=== PATIENT | male | born 1930 | race Caucasian/White ===

== ENCOUNTER → 2016-03-15 | Outpatient (CLI) | payer BC ==
[~2016-03-15] MED LIST: ACET-1311 PO; ALBU18002 INH; ALBU1AER9 INH; ASCAUNK PO; ASCO500T16 PO; ASPCH81X PO; ASPI81TA28 PO; BENZ100C84 PO; CALC625T13 PO; CETI10TA84 PO; CETITAB27 PO; CLON0.5T3 PO; DIPH-437 PO; DUTACAP PO; FURO-85 PO; GABA-112 PO; GABA1CAP4 PO; GABA1CAP5 PO; GINK60CA2 PO; GLCSC750600 PO; GLUC500C60 PO; IPRA0.037; IPRA0.06 NAE; LOSA50TA6 PO; LOVA20TA4 PO; OMEP20CA59 PO; OXYC-57 PO; SYMIN160 INH; TIOT1SPR INH; ULT50 PO; VNTHFA/IN INH; XRL10 PO; XRL20 PO; ZNTT/150 PO; [UNRECOGNIZED DRUG - OTHER] PEG
--- NOTE | 2016-03-15 10:47 | DIAGNOSTIC IMAGING REPORT ---
MRI OF THE LUMBAR SPINE WITHOUT CONTRAST CLINICAL HISTORY: Low back pain with left-sided radiculopathy. COMPARISON STUDY: Lumbar spine MRI January 28, 2015 and lumbar spine radiographs March 15, [address] December 08, 2014. TECHNIQUE: Utilizing a 1.5 Ainsley magnet and dedicated coil, multiplanar, multiecho imaging of the lumbar spine was performed without IV contrast. FINDINGS: For purposes of numbering on this exam, the L5-S1 disc space is assigned to axial image 23 of 25. There is slight anterolisthesis of L4 and L5 which is unchanged. No intracanalicular mass or fluid collection is present. The conus terminates at the mid L1 level. Paravertebral soft tissues are unremarkable. L1-2: There is disc space narrowing with mild disc bulge. The central canal and neural foramen are patent. L2-3: There is disc space narrowing with minimal disc bulge. There is facet arthrosis. The central canal and neural foramen are patent. L3-4: There is disc space narrowing with minimal disc bulge. There is moderate facet arthrosis with ligamentous hypertrophy. The central canal is patent. There is mild narrowing of the right neural foramen and moderate narrowing of the left neural foramen which is similar to prior exam. L4-5: There is grade I anterolisthesis. Minimal disc bulge is present. There is marked ligamentous hypertrophy. Moderate facet arthrosis is present. There is mild narrowing of the central canal and lateral recesses with moderate narrowing of both neural foramen. L5-S1: There is disc space narrowing with disc bulge and facet arthrosis. The central canal is patent. There is moderate right and severe left neural foraminal stenosis which is similar to prior exam. IMPRESSION: 1. No significant change in appearance of the lumbar spine since exam of January 28, 2015. 2. Mild central canal stenosis at L4-L5, as detailed above. 3. Moderate to severe multilevel neural foraminal stenosis, most pronounced at the left L5-S1 foramen, as detailed above. Electronically signed by: Sriram Cates M.D. 03/15/2016 10:46 AM Dictated Date/Time: 03/15/2016 10:39 AM
== END | disposition home or self-care (01) ==
LOC: C.MRI 09:09
PROVIDERS: ATTEND Orthopaedic Surgery
DX: M54.16 Radiculopathy, lumbar region (principal); M48.06 Spinal stenosis, lumbar region

== ENCOUNTER → 2016-05-15 | Outpatient (CLI) | payer BC ==
[~2016-05-15] MED LIST changes: -[UNRECOGNIZED DRUG - OTHER] PEG; +[UNRECOGNIZED DRUG - OTHER] TOP
--- NOTE | 2016-05-15 18:22 | DIAGNOSTIC IMAGING REPORT ---
LUMBAR SPINE 5 VIEWS HISTORY: Pain. Trauma. TRAUMA COMPARISON: None. FINDINGS: There is no fracture. No subluxation. Moderate degenerative disc changes throughout. Mild osteopenia. IMPRESSION: Moderate degenerative change. Mild osteopenia. No acute bony abnormality. Electronically signed by: Duc Fleming M.D. 05/15/2016 6:20 PM Dictated Date/Time: 05/15/2016 6:19 PM
--- NOTE | 2016-05-15 18:23 | DIAGNOSTIC IMAGING REPORT ---
PELVIS/BILATERAL HIP 2 VIEWS CLINICAL HISTORY: TRAUMA pain COMPARISON STUDY: None FINDINGS: Moderate degenerative change at both hip joint spaces. No evidence for acetabular protrusion. No evidence for fracture or dislocation. IMPRESSION: Moderate degenerative change. No acute process. Electronically signed by: Duc Fleming M.D. 05/15/2016 6:21 PM Dictated Date/Time: 05/15/2016 6:20 PM
== END | disposition home or self-care (01) ==
LOC: C.RAD 17:40
PROVIDERS: ATTEND Internal Medicine
DX: T14.90 Injury, unspecified (principal); X58.XXXA Exposure to other specified factors, initial encounter

== ENCOUNTER → 2016-05-30 | Outpatient (CLI) | payer BC ==
[2016-05-30 14:57] LABS: ESTIMATED AVERAGE GLUCOSE 117 mg/dl; HA1C FLAG Normal (Normal)
[2016-05-30 15:35] LABS: BLOOD UREA NITROGEN 21 mg/dl (7-18); BUN/CREATININE RATIO 18.7 (10-20); CALCIUM 8.9 mg/dl (8.5-10.1); CARBON DIOXIDE 27 mmol/L (21-32); CHLORIDE 106 mmol/L (98-107); GLUCOSE 118 mg/dl (70-99); POTASSIUM 4.3 mmol/L (3.5-5.1); SODIUM 140 mmol/L (136-145)
== END | disposition home or self-care (01) ==
LOC: C.LAB1850 13:53
PROVIDERS: ATTEND Internal Medicine
DX: Z86.39 Personal history of other endocrine, nutritional and metabolic disease (principal)

== ENCOUNTER 2016-08-26 08:40 | Inpatient (IN) | payer BC, OTHER ==
[~2016-08-26] VITALS: Ht 172.7 cm; Wt 74.2 kg
[~2016-08-26 08:40] MED LIST changes: -ACET-1311 PO; -ALBU18002 INH; -ASCO500T16 PO; -ASPI81TA28 PO; -CALC625T13 PO; -CETI10TA84 PO; -GABA-112 PO; -GABA1CAP4 PO; -GABA1CAP5 PO; -GLUC500C60 PO; -IPRA0.06 NAE; -SYMIN160 INH; -ULT50 PO; -VNTHFA/IN INH; -XRL10 PO; -[UNRECOGNIZED DRUG - OTHER] TOP
[2016-08-26] MEDS: SODIUM CHLORIDE 0.9% 1000ML 1,000 ML IV SCH ×2 (09:19→14:15)
[2016-08-26 09:34] LABS: BASO % 0.3 %; BASO ABS # 0.03 K/uL (0-0.2); BUN/CREATININE RATIO 19.9 (10-20); COMPLETE YES; CREATININE 1.1 mg/dl (0.60-1.40); EOS % 4.1 %; HEMATOCRIT 35.1 % (42-52); IG% 0.7 %; LYMPH % 10.3 %; LYMPH ABS # 1.15 K/uL (1.2-3.4); MEAN CELL VOLUME 76.8 fL (80-100); MEAN CORPUSCULAR HEMOGLOBIN 24.7 pg (25-34); MEAN CORPUSCULAR HGB CONC 32.2 g/dl (32-36); MEAN PLATELET VOLUME 10.1 fL (7.4-10.4); MONO % 8.5 %; NEUT % 76.1 %; PLATELET COUNT 252 K/uL (130-400); POTASSIUM 4.7 mmol/L (3.5-5.1); RED BLOOD COUNT 4.57 M/uL (4.7-6.1); WHITE BLOOD COUNT 11.15 K/uL (4.8-10.8)
[2016-08-26 09:46] LABS: INR 1.5 (0.9-1.1); PARTIAL THROMBOPLASTIN RATIO 1.7; PROTHROMBIN TIME (PATIENT) 16.1 SECONDS (9.0-12.0)
--- NOTE | 2016-08-26 10:59 | DIAGNOSTIC IMAGING REPORT ---
CT OF THE ABDOMEN AND PELVIS WITHOUT CONTRAST CLINICAL HISTORY: Painless hematuria. COMPARISON STUDY: CT of the abdomen and pelvis October 20, [address] April 06, 2016. TECHNIQUE: Axial images of the abdomen and pelvis were obtained without IV contrast. Images were reviewed in the axial, sagittal, and coronal planes. A dose lowering technique was utilized adhering to the principles of ALARA. FINDINGS: Visualized portions of the lower chest demonstrate a large hiatal hernia with intrathoracic stomach. The hernia also contains a portion of the transverse colon. A moderate to large right pleural effusion is partially imaged. Pacer lead is noted. Unenhanced images of the liver, spleen, adrenal glands, pancreas and kidneys are unremarkable. There is no hydronephrosis. Sensitivity for detection of urothelial lesions is diminished on this unenhanced exam. The bladder is moderately distended. Within the posterior aspect of the bladder, there is a 7.7 x 5 cm hyperdensity which suggests a large clot. The prostate is moderately enlarged. No urinary calculi are identified. There is no lymphadenopathy. There are postsurgical findings within the spine. There is no bowel obstruction. IMPRESSION: 1. 7.7 x 5 cm hyperdensity within the dependent aspect of the bladder suggestive of a large blood clot. An underlying lesion cannot be excluded this exam. Decreased sensitivity for detection of urothelial lesions on this unenhanced exam. Moderate distention of the bladder. Moderate enlargement of the prostate. 2. Moderate to large right pleural effusion which is partially imaged on this exam. 3. Large hiatal hernia. Electronically signed by: Sriram Cates M.D. 08/26/2016 10:57 AM Dictated Date/Time: 08/26/2016 10:49 AM
[2016-08-26] MEDS ORDERED: GLUC500C60 PO (11:00)
[2016-08-26] MEDS ORDERED: ALBU18002 INH (11:00)
[2016-08-26] MEDS ORDERED: ULT50 PO (11:00)
[2016-08-26] MEDS ORDERED: GABA1CAP4 PO (11:00)
[2016-08-26] MEDS ORDERED: XRL20 PO (11:00)
[2016-08-26] MEDS ORDERED: ASCO500T16 PO (11:00)
[2016-08-26] MEDS ORDERED: IPRA0.06 NAE (11:00)
[2016-08-26 13:13] LABS: MANUAL MICROSCOPIC REQUIRED? YES; REVIEW REQ? NO; SULFASALICYLIC ACID POS (NEG); URINE APPEARANCE TURBID (CLEAR); URINE COLOR RED; URINE SPECIFIC GRAVITY 1.011 (1.000-1.030)
[2016-08-26 13:19] LABS: URINE BACTERIA 1+ (NEG); URINE RBC >30 /hpf (0-4); ZZUR CULT IF INDIC CLEAN CATCH YES
--- NOTE | 2016-08-26 13:55 | EMERGENCY ROOM VISIT NOTE ---
History First contact with patient: :01 Chief Complaint: HEMATURIA Stated Complaint: BLOOD/CLOTS IN URINE Nursing Triage Summary: pt reports he has had intermittent blood in urine for last couple days worsened yesterday. pt reports recent back surgery on august 10. denies any back pain with urinary sx. pt had stephenson after surgery was removed this past sunday has been doing self cath. History of Present Illness The patient is a 86 year old male who presents to the Emergency Room via private vehicle with complaints of "blood/clots in urine". The patient states that on August 10, he had spine surgery performed in [facility]. He has been recovering well, and had a Stephenson catheter placed which was removed this past Sunday. He states that he is to self cath 1 week, and measure post void residual volume. He notes no posterior void residual, however notes that throughout the week his urine has been pink and now quite bloody. He states that this time he does have burning when he urinates, but no pain in the genital region at rest. He states that at 3 AM he was unable to urinate, and had to self cath there was a large amount of blood. He states then there has been minimal flow from his self-catheterization therefore came here today for evaluation. Review of Systems A complete 10-point Review of Systems was discussed with the patient, with pertinent positives and negatives listed in the History of Present Illness. All remaining Review of Systems questions can be considered negative unless otherwise specified. Past Medical/Surgical History Medical Problems: (1) Asthma (2) Bronchitis (3) Enlarged prostate (4) Hematuria (5) Lymphoma Family History Cancer Social History Smoking Status: Never Smoker Alcohol Use: occasionally Marital Status: Housing Status: lives with significant other Occupation Status: retired Current/Historical Medications Scheduled Ascorbic Acid (Ascorbic Acid), 500 MG PO QAM Aspirin (Aspirin Chewable), 81 MG PO QAM Budesonide/Formoterol Fumarate (Symbicort 160/4.5 Inhaler ), 2 PUFFS INH BID Clonazepam (Klonopin), 0.5 MG PO HS Dutasteride-Tamsulosin Hcl (Missy), 1 TAB PO QPM Gabapentin (Gabapentin), TID Glucosamine-Chondroitin 500MG/400 Mg (Glucosamine-Chondroitin 500 Mg/400 Mg), 1 CAP PO QAM Losartan Potassium (Cozaar), 1 TAB PO QPM Lovastatin (Mevacor), 20 MG PO HS Omeprazole (Prilosec), 20 MG PO AMPM Rivaroxaban (Xarelto), 1 TAB PO QPM Tiotropium [place] (Spiriva Respimat), 2 PUFFS INH QAM Tramadol HCl (Tramadol HCl), 1 TAB PO Q6H Scheduled PRN Albuterol Sulfate (Proair Respiclick), 2 PUFFS INH Q4H PRN for SOB/Wheezing Benzonatate (Tessalon Perles), 100 MG PO UD PRN for Cough Cetirizine/Pseudoephedrine (Zyrtec-D Er 5MG/120MG), 1 TAB PO BID PRN for PRN Diphenhydramine-Acetaminophen (Tylenol Pm), 1 TAB PO HS PRN for Sleep Furosemide (Lasix), 20 MG PO DAILY PRN for LEG SWELLING Ipratropium [place] (Nasal) (Ipratropium [place]), 1 SPRAY MARIO for Nasal Congestion Ranitidine (Zantac), 75 MG PO BID PRN for Dyspepsia Physical Exam Vital Signs Date Time Temp Pulse Resp B/P (MAP) Pulse Ox O2 Delivery O2 Flow Rate FiO2 08/26/16 14:36 88 16 165/96 96 Room Air 08/26/16 14:28 72 08/26/16 12:53 72 137/82 97 Room Air 08/26/16 12:45 71 22 91 08/26/16 12:40 70 17 92 08/26/16 12:35 72 19 137/82 08/26/16 12:30 72 16 08/26/16 12:25 73 20 08/26/16 12:20 71 21 08/26/16 12:15 75 18 08/26/16 12:10 79 19 08/26/16 12:05 75 20 08/26/16 12:00 78 22 08/26/16 11:55 76 17 08/26/16 11:50 77 19 08/26/16 11:45 76 21 08/26/16 11:40 82 20 08/26/16 11:35 79 21 08/26/16 11:30 70 18 97 08/26/16 11:25 73 18 93 08/26/16 11:20 71 18 95 08/26/16 11:15 70 19 93 08/26/16 11:10 70 19 94 08/26/16 11:05 72 19 92 08/26/16 11:00 71 18 94 08/26/16 10:55 74 21 08/26/16 10:50 71 22 92 08/26/16 10:45 70 17 08/26/16 10:40 70 21 93 08/26/16 10:35 71 20 94 08/26/16 10:30 73 18 95 08/26/16 10:25 71 15 94 08/26/16 10:20 75 21 94 08/26/16 10:15 74 18 08/26/16 10:10 72 21 93 08/26/16 10:07 78 08/26/16 10:05 114/78 08/26/16 10:05 94 Room Air 08/26/16 10:05 79 16 114/78 94 Room Air 08/26/16 08:41 36.3 79 18 113/71 98 Room Air Physical Exam VITAL SIGNS - Vital signs and nursing notes were reviewed. Patient is afebrile , normotensive, non-tachycardic, and is saturating well on room air and 98%. GENERAL -86-year-old male appearing his stated age who is in no acute distress. Communicates well with provider and answers questions appropriately. SKIN - Without rashes. No petechial rashes. The genitalia is unremarkable, other than a small amount of blood from the urethra. ABDOMEN - Abdominal contour without pulsations or visible masses. BS normoactive all four quadrants. No tenderness, palpable masses, hepatosplenomegaly, or ascites noted. : There is no abnormality, other than blood from the urethra. Medical Decision & Procedures ER Provider Diagnostic Interpretation: CT OF THE ABDOMEN AND PELVIS WITHOUT CONTRAST CLINICAL HISTORY: Painless hematuria. COMPARISON STUDY: CT of the abdomen and pelvis October 20, [address] April 06, 2016. TECHNIQUE: Axial images of the abdomen and pelvis were obtained without IV contrast. Images were reviewed in the axial, sagittal, and coronal planes. A dose lowering technique was utilized adhering to the principles of ALARA. FINDINGS: Visualized portions of the lower chest demonstrate a large hiatal hernia with intrathoracic stomach. The hernia also contains a portion of the transverse colon. A moderate to large right pleural effusion is partially imaged. Pacer lead is noted. Unenhanced images of the liver, spleen, adrenal glands, pancreas and kidneys are unremarkable. There is no hydronephrosis. Sensitivity for detection of urothelial lesions is diminished on this unenhanced exam. The bladder is moderately distended. Within the posterior aspect of the bladder, there is a 7.7 x 5 cm hyperdensity which suggests a large clot. The prostate is moderately enlarged. No urinary calculi are identified. There is no lymphadenopathy. There are postsurgical findings within the spine. There is no bowel obstruction. IMPRESSION: 1. 7.7 x 5 cm hyperdensity within the dependent aspect of the bladder suggestive of a large blood clot. An underlying lesion cannot be excluded this exam. Decreased sensitivity for detection of urothelial lesions on this unenhanced exam. Moderate distention of the bladder. Moderate enlargement of the prostate. 2. Moderate to large right pleural effusion which is partially imaged on this exam. 3. Large hiatal hernia. Electronically signed by: Sriram Cates M.D. 08/26/2016 10:57 AM Dictated Date/Time: 08/26/2016 10:49 AM Laboratory Results 08/26/16 09:00 Red Blood Count 4.57, Mean Corpuscular Volume 76.8, Mean Corpuscular Hemoglobin 24.7, Mean Corpuscular Hemoglobin Concent 32.2, Mean Platelet Volume 10.1, Neutrophils (%) (Auto) 76.1, Lymphocytes (%) (Auto) 10.3, Monocytes (%) (Auto) 8.5, Eosinophils (%) (Auto) 4.1, Basophils (%) (Auto) 0.3, Neutrophils # (Auto) 8.48, Lymphocytes # (Auto) 1.15, Monocytes # (Auto) 0.95, Eosinophils # (Auto) 0.46, Basophils # (Auto) 0.03 08/26/16 09:00 Test 08/26/16 00:00 08/26/16 09:00 Urine Color RED Urine Appearance TURBID (CLEAR) Urine pH (4.5-7.5) Urine Specific [place] 1.011 (1.000-1.030) Urine Protein (NEG) Urine Glucose (UA) (NEG) Urine Ketones (NEG) Urine Occult Blood (NEG) Urine Nitrite (NEG) Urine Bilirubin (NEG) Urine Urobilinogen (NEG) Urine Leukocyte Esterase (NEG) Urine RBC >30 /hpf (0-4) Urine WBC 10-30 /hpf (0-5) Urine Epithelial Cells 0-5 /lpf (0-5) Urine Bacteria 1+ (NEG) White Blood Count 11.15 K/uL (4.8-10.8) Red Blood Count 4.57 M/uL (4.7-6.1) Hemoglobin 11.3 g/dL (14.0-18.0) Hematocrit 35.1 % (42-52) Mean Corpuscular Volume 76.8 fL (80-100) Mean Corpuscular Hemoglobin 24.7 pg (25-34) Mean Corpuscular Hemoglobin Concent 32.2 g/dl (32-36) Platelet Count 252 K/uL (130-400) Mean Platelet Volume 10.1 fL (7.4-10.4) Neutrophils (%) (Auto) 76.1 % Lymphocytes (%) (Auto) 10.3 % Monocytes (%) (Auto) 8.5 % Eosinophils (%) (Auto) 4.1 % Basophils (%) (Auto) 0.3 % Neutrophils # (Auto) 8.48 K/uL (1.4-6.5) Lymphocytes # (Auto) 1.15 K/uL (1.2-3.4) Monocytes # (Auto) 0.95 K/uL (0.11-0.59) Eosinophils # (Auto) 0.46 K/uL (0-0.5) Basophils # (Auto) 0.03 K/uL (0-0.2) RDW Standard Deviation 45.6 fL (36.4-46.3) RDW Coefficient of Variation 16.3 % (11.5-14.5) Immature Granulocyte % (Auto) 0.7 % Immature Granulocyte # (Auto) 0.08 K/uL (0.00-0.02) Prothrombin Time 16.1 SECONDS (9.0-12.0) Prothromb Time International Ratio 1.5 (0.9-1.1) Activated Partial Thromboplast Time 43.4 SECONDS (21.0-31.0) Partial Thromboplastin Ratio 1.7 Anion Gap 6.0 mmol/L (3-11) Est Creatinine Clear Calc Drug Dose 49.7 ml/min Estimated GFR () 69.6 Estimated GFR (Non- 60.0 BUN/Creatinine Ratio 19.9 (10-20) Calcium Level 9.0 mg/dl (8.5-10.1) Total Bilirubin 0.4 mg/dl (0.2-1) Aspartate Amino Transf (AST/SGOT) 13 U/L (15-37) Alanine Aminotransferase (ALT/SGPT) 16 U/L (12-78) Alkaline Phosphatase 94 U/L (45-117) Total Protein 6.7 gm/dl (6.4-8.2) Albumin 3.4 gm/dl (3.4-5.0) Globulin 3.3 gm/dl (2.5-4.0) Albumin/Globulin Ratio 1.0 (0.9-2) Medications Administered Medications (Trade) Dose Ordered Sig/Larry Route Start Time Stop Time Status Last Admin Dose Admin Sodium Chloride 1,000 ml @ 200 mls/hr Q5H IV 08/26/16 09:15 08/26/16 16:25 DC 08/26/16 14:15 200 MLS/HR Medical Decision Patient was seen and evaluated as above. After obtaining a thorough history and physical examination IV access was initiated and the above workup was performed. Patient presents mostly with painless hematuria status post Stephenson catheter placement and self-catheterization. He is on Xarelto. He denies any pain in the bladder region. He does note slight dysuria. CBC reveals slight leukocytosis, and anemia which is a new compared to previous. No evidence of kidney or liver failure. Sodium low at 131, he'll be hydrated with normal saline, BUN high at 22. Random glucose 120, AST low at 13. Urine reveals red, turbid urine with greater than 30 red blood cells, 10-30 white blood cells, and urine bacteria. CT scan does reveal pleural effusion, patient is aware of this. Asymptomatic at this time. There is what appears to be a large clot identified on CAT scan in the bladder. I did discuss case with my attending, and the decision was made to place a catheter to attempt to irrigate and help dissolve the clot. This was attempted, and did not resolve in passage of clot. There appeared to be some retained fluid. It is important to note that at the time of consult the urine results were not available as they had just been obtained as the patient was unable to urinate until later in his stay. I discussed the case with Dr. Mcintyre, the on-call urologist and after a thorough discussion, it was recommended the patient have a 22 [place], to a catheter be hydrated overnight and may be reevaluated in the morning. I believe this is reasonable. I discussed the case with my attending, who also personally evaluated the patient as well as the hospitalist. Please refer to further evaluation and management regarding the patient's stay. In evaluation treatment this patient following differential diagnoses were entertained: Urinary retention, nephrolithiasis, lesion, urinary tract infection , among others. Medication Reconcilliation Current Medication List: was personally reviewed by me Blood Pressure Screening Patient's blood pressure: Normal blood pressure Impression Primary Impression: Hematuria Additional Impression: Anemia Departure Information Dispostion Admitted as an inpatient Condition FAIR Referrals Pro,Jonathan Rubio M.D. (PCP) Patient Instructions My [facility] Problem Qualifiers
[2016-08-26] MEDS ORDERED: SYMIN160 INH (14:38)
[2016-08-26] MEDS ORDERED: TRAMADOL HCL 50 MG TAB PO PRN (14:45)
[2016-08-26] MEDS ORDERED: MAGNESIUM HYDROXIDE SUSP 30 ML UDC PO PRN (14:45)
[2016-08-26] MEDS ORDERED: POLYETHYLENE (MIRALAX) 17 GM PACK PO PRN (14:45)
[2016-08-26] MEDS ORDERED: ALUMINUM/MAGNESIUM/SIMETH (MAALOX MAX) 30 ML UDC PO PRN (14:45)
[2016-08-26] MEDS ORDERED: ONDANSETRON INJ 2 MG/ML 2 ML VIAL IV PRN (14:45)
[2016-08-26 14:55] VITALS: O2SAT 96; Ht 172.7 cm; Wt 74.2 kg
--- NOTE | 2016-08-26 15:00 | EMERGENCY ROOM VISIT NOTE ---
ED Visit Note First contact with patient: 09:01 I have personally seen and evaluated the patient with the PA. I agree with the diagnosis and management decisions and have been personally involved in the case. Upon my evaluation the patient, he was doing well. Recommendations from Dr. Mcintyre were discussed. Nursing staff was preparing to place the new [place] catheter. Periodic irrigation will continue. Please see TAMMY Crabtree's notes for further details of the history, physical and visit.
[2016-08-26 15:33] VITALS: O2SAT 98
[2016-08-26] MEDS ORDERED: FUROSEMIDE 40 MG TAB ONE (15:39)
--- NOTE | 2016-08-26 15:55 | History and Physical ---
History & Physical Date & Time of Service: Aug 26, 2016 at 15:20 Chief Complaint: Blood/Clots In Urine Primary Care Physician: Jonathan Mae M.D. History of Present Illness Source: patient, spouse, clinic records, hospital records This is an 86 y/o male with a history of a-fib on chronic AC, pacemaker, HTN, HLD, chronic diastolic CHF, COPD, BPH, RLS, B cell lymphoma and GERD who presented to the ED on 08/26 with hematuria. Patient recently had back surgery on August 10 at [place], after which an indwelling Hurtado catheter was placed due to his history of postoperative urinary retention. The Hurtado was taken out by Dr. Rooney on August 21. The patient was instructed to straight cath at night and check post void residual volumes. The patient was initially doing well postoperatively, and had been able to urinate on his own, so he stopped the straight caths. Yesterday the patient started to notice a pink color in his urine. Last night the patient voided sameer blood with blood clots. In the middle the night the patient did a straight cath which yielded more sameer blood and clots. This morning around 7:00 AM the patient was not able to urinate and straight cath also did not yield any urine. The patient complains of dysuria but denies penile pain or discharge. The patient also admits to some dyspnea on exertion, but he states that this is chronic and is no worse than usual. He notes some weakness and fatigue. The patient complains of some numbness in his left lower extremity, which is also chronic and is the reason he underwent back surgery. The patient denies fevers, chills, sweats, chest pain, palpitations, claudication, cough, wheezing, shortness of breath at rest, nausea, vomiting, abdominal pain, and paralysis. Past Medical/Surgical History A-fib on chronic anticoagulation Pacemaker HTN HLD Chronic diastolic CHF COPD BPH RLS B cell lymphoma GERD S/p LAD stent in 1999 Family History Cancer (breast) Hyperlipidemia Hypertension Social History Smoking Status: Never Smoker Smokeless Tobacco Use: No Alcohol Use: occasionally (1 vodka mixed drink) Drug Use: none Marital Status: Housing status: lives with significant other Occupational Status: retired Multi-Drug Resistant Organisms History of MDRO: No Allergies Coded Allergies: Pregabalin (Verified Allergy, Severe, shortness of breath, 08/26/16) Codeine (Verified Allergy, Unknown, DROWSY, 08/26/16) Diphenhydramine (Verified Allergy, Unknown, DROWSY, 08/26/16) Home Medications Scheduled Ascorbic Acid (Ascorbic Acid), 500 MG PO QAM Aspirin (Aspirin Chewable), 81 MG PO QAM Budesonide/Formoterol Fumarate (Symbicort 160/4.5 Inhaler ), 2 PUFFS INH BID Clonazepam (Klonopin), 0.5 MG PO HS Dutasteride-Tamsulosin Hcl (Missy), 1 TAB PO QPM Gabapentin (Gabapentin), TID Glucosamine-Chondroitin 500MG/400 Mg (Glucosamine-Chondroitin 500 Mg/400 Mg), 1 CAP PO QAM Losartan Potassium (Cozaar), 1 TAB PO QPM Lovastatin (Mevacor), 20 MG PO HS Omeprazole (Prilosec), 20 MG PO AMPM Rivaroxaban (Xarelto), 1 TAB PO QPM Tiotropium [place] (Spiriva Respimat), 2 PUFFS INH QAM Tramadol HCl (Tramadol HCl), 1 TAB PO Q6H Scheduled PRN Albuterol Sulfate (Proair Respiclick), 2 PUFFS INH Q4H PRN for SOB/Wheezing Benzonatate (Tessalon Perles), 100 MG PO UD PRN for Cough Cetirizine/Pseudoephedrine (Zyrtec-D Er 5MG/120MG), 1 TAB PO BID PRN for PRN Diphenhydramine-Acetaminophen (Tylenol Pm), 1 TAB PO HS PRN for Sleep Furosemide (Lasix), 20 MG PO DAILY PRN for LEG SWELLING Ipratropium [place] (Nasal) (Ipratropium [place]), 1 SPRAY MARIO for Nasal Congestion Ranitidine (Zantac), 75 MG PO BID PRN for Dyspepsia Review of Systems Constitutional: + weakness, + fatigue, No fever, No chills, No sweats Eyes: No worsening of vision, No eye pain, No redness ENT: No hearing loss, No sore throat, No trouble swallowing Respiratory: + dyspnea on exertion, No cough, No wheezing, No shortness of breath Cardiovascular: No chest pain, No claudication, No palpitations Abdomen: No pain, No nausea, No vomiting Musculoskeletal: No joint pain, No muscle pain, No calf pain Genitourinary - Male: + hematuria, + dysuria, + urinary retention, No urinary incontinence, No penile discharge Neurologic: + numbness/tingling (LLE), No paralysis, No weakness Integumentary: No rash, No itch, No color change Physical Exam Vital Signs Date Time Temp Pulse Resp B/P (MAP) Pulse Ox O2 Delivery O2 Flow Rate FiO2 08/26/16 14:55 96 Room Air 08/26/16 14:36 88 16 165/96 96 Room Air 08/26/16 14:28 72 08/26/16 12:53 72 137/82 97 Room Air 08/26/16 12:45 71 22 91 08/26/16 12:40 70 17 92 08/26/16 12:35 72 19 137/82 08/26/16 12:30 72 16 08/26/16 12:25 73 20 08/26/16 12:20 71 21 08/26/16 12:15 75 18 08/26/16 12:10 79 19 08/26/16 12:05 75 20 08/26/16 12:00 78 22 08/26/16 11:55 76 17 08/26/16 11:50 77 19 08/26/16 11:45 76 21 08/26/16 11:40 82 20 08/26/16 11:35 79 21 08/26/16 11:30 70 18 97 08/26/16 11:25 73 18 93 08/26/16 11:20 71 18 95 08/26/16 11:15 70 19 93 08/26/16 11:10 70 19 94 08/26/16 11:05 72 19 92 08/26/16 11:00 71 18 94 08/26/16 10:55 74 21 08/26/16 10:50 71 22 92 08/26/16 10:45 70 17 08/26/16 10:40 70 21 93 08/26/16 10:35 71 20 94 08/26/16 10:30 73 18 95 08/26/16 10:25 71 15 94 08/26/16 10:20 75 21 94 08/26/16 10:15 74 18 08/26/16 10:10 72 21 93 08/26/16 10:07 78 08/26/16 10:05 114/78 08/26/16 10:05 94 Room Air 08/26/16 10:05 79 16 114/78 94 Room Air 08/26/16 08:41 36.3 79 18 113/71 98 Room Air General appearance: Well-developed, well-nourished, no apparent distress Head: Normocephalic, atraumatic Eyes: Normal inspection, PERRL, EOMI ENT: Normal ENT inspection, hearing grossly normal, pharynx normal Neck: Supple, no JVD, trachea midline Respiratory/Chest: +Decreased breath sounds in bases bilaterally, R>L. Lungs clear to auscultation, normal breath sounds, no respiratory distress Cardiovascular: Regular rate & rhythm, no gallop, no murmur Abdomen/GI: Normal bowel sounds, non-tender, soft : +Hurtado in place draining dark howard colored urine. Normal inspection, no penile discharge or lesions Extremities/Musculoskeletal: Normal inspection, no calf tenderness, no pedal edema Neurological/Psych: Alert, normal mood/affect, oriented x 3 Skin: Normal color, warm/dry, no rash Diagnostics Laboratory Results Results Past 24 Hours Test 08/26/16 00:00 08/26/16 09:00 Range/Units Urine Color RED Urine Appearance TURBID CLEAR Urine pH 4.5-7.5 Urine Specific [place] 1.011 1.000-1.030 Urine Protein NEG Urine Glucose (UA) NEG Urine Ketones NEG Urine Occult Blood NEG Urine Nitrite NEG Urine Bilirubin NEG Urine Urobilinogen NEG Urine Leukocyte Esterase NEG Urine RBC >30 0-4 /hpf Urine WBC 10-30 0-5 /hpf Urine Epithelial Cells 0-5 0-5 /lpf Urine Bacteria 1+ NEG White Blood Count 11.15 4.8-10.8 K/uL Red Blood Count 4.57 4.7-6.1 M/uL Hemoglobin 11.3 14.0-18.0 g/dL Hematocrit 35.1 42-52 % Mean Corpuscular Volume 76.8 80-100 fL Mean Corpuscular Hemoglobin 24.7 25-34 pg Mean Corpuscular Hemoglobin Concent 32.2 32-36 g/dl Platelet Count 252 130-400 K/uL Mean Platelet Volume 10.1 7.4-10.4 fL Neutrophils (%) (Auto) 76.1 % Lymphocytes (%) (Auto) 10.3 % Monocytes (%) (Auto) 8.5 % Eosinophils (%) (Auto) 4.1 % Basophils (%) (Auto) 0.3 % Neutrophils # (Auto) 8.48 1.4-6.5 K/uL Lymphocytes # (Auto) 1.15 1.2-3.4 K/uL Monocytes # (Auto) 0.95 0.11-0.59 K/uL Eosinophils # (Auto) 0.46 0-0.5 K/uL Basophils # (Auto) 0.03 0-0.2 K/uL RDW Standard Deviation 45.6 36.4-46.3 fL RDW Coefficient of Variation 16.3 11.5-14.5 % Immature Granulocyte % (Auto) 0.7 % Immature Granulocyte # (Auto) 0.08 0.00-0.02 K/uL Prothrombin Time 16.1 9.0-12.0 SECONDS Prothromb Time International Ratio 1.5 0.9-1.1 Activated Partial Thromboplast Time 43.4 21.0-31.0 SECONDS Partial Thromboplastin Ratio 1.7 Sodium Level 131 136-145 mmol/L Potassium Level 4.7 3.5-5.1 mmol/L Chloride Level 98 98-107 mmol/L Carbon Dioxide Level 27 21-32 mmol/L Anion Gap 6.0 3-11 mmol/L Blood Urea Nitrogen 22 7-18 mg/dl Creatinine 1.10 0.60-1.40 mg/dl Est Creatinine Clear Calc Drug Dose 49.7 ml/min Estimated GFR () 69.6 Estimated GFR (Non- 60.0 BUN/Creatinine Ratio 19.9 10-20 Random Glucose 120 70-99 mg/dl Calcium Level 9.0 8.5-10.1 mg/dl Total Bilirubin 0.4 0.2-1 mg/dl Aspartate Amino Transf (AST/SGOT) 13 15-37 U/L Alanine Aminotransferase (ALT/SGPT) 16 12-78 U/L Alkaline Phosphatase 94 45-117 U/L Total Protein 6.7 6.4-8.2 gm/dl Albumin 3.4 3.4-5.0 gm/dl Globulin 3.3 2.5-4.0 gm/dl Albumin/Globulin Ratio 1.0 0.9-2 Microbiology Results 08/26/16 Urine Culture, Received Pending Diagnostic Radiology Reviewed the following studies and agree with interpretation as follows: Patient Name: BREANA WHITE Unit Number: [id number] Dictated: 08/26/161048 Transcribed: 08/26/161048 JA Printed Date/Time: [~ rep prt dt]/[~ rep prt tm] [~ rep ct labl] - [~ rep ct ivnm] [facility] [place] [address] Dictated: 08/26/161048 Transcribed: 08/26/161048 JA Printed Date/Time: [~ rep prt dt]/[~ rep prt tm] [~ rep ct labl] - [~ rep ct ivnm] Patient: BREANA WHITE Address1: [address] [place] [address] Rec: [id number] Address2: Acct ID: [id number] [facility] Zip: [place] [address] Date: 1930 Sex: M Room/Bed: Ref Phy: Diego Rooney MD, Urology SC: CAMILA Att Phy: Report #: [id number] Jaclyn Phy: Jonathan Mae M.D. Test: APWO Admit Phy: [employer] Processor: JÚNIOR Interpreting Phy: Sriram Cates MD Diagnosis: BLOOD/CLOTS IN URINE Ordering Phy: Willis Cardoso PA-C Service Date: 08/26/16 Admit Date: 08/26/16 MNE: [id number] CONF: DICTATED BY: Sriram Cates MD]] CC: Willis Cardoso PA-C Flickinger, Bridget B., M.D. Miller, Howard I., MD, Urology Jonathan Mae M.D. Endcc: [~ rep ct add3]] CT OF THE ABDOMEN AND PELVIS WITHOUT CONTRAST CLINICAL HISTORY: Painless hematuria. COMPARISON STUDY: CT of the abdomen and pelvis October 20, [address] April 06, 2016. TECHNIQUE: Axial images of the abdomen and pelvis were obtained without IV contrast. Images were reviewed in the axial, sagittal, and coronal planes. A dose lowering technique was utilized adhering to the principles of ALARA. FINDINGS: Visualized portions of the lower chest demonstrate a large hiatal hernia with intrathoracic stomach. The hernia also contains a portion of the transverse colon. A moderate to large right pleural effusion is partially imaged. Pacer lead is noted. Unenhanced images of the liver, spleen, adrenal glands, pancreas and kidneys are unremarkable. There is no hydronephrosis. Sensitivity for detection of urothelial lesions is diminished on this unenhanced exam. The bladder is moderately distended. Within the posterior aspect of the bladder, there is a 7.7 x 5 cm hyperdensity which suggests a large clot. The prostate is moderately enlarged. No urinary calculi are identified. There is no lymphadenopathy. There are postsurgical findings within the spine. There is no bowel obstruction. IMPRESSION: 1. 7.7 x 5 cm hyperdensity within the dependent aspect of the bladder suggestive of a large blood clot. An underlying lesion cannot be excluded this exam. Decreased sensitivity for detection of urothelial lesions on this unenhanced exam. Moderate distention of the bladder. Moderate enlargement of the prostate. 2. Moderate to large right pleural effusion which is partially imaged on this exam. 3. Large hiatal hernia. Electronically signed by: Sriram Cates M.D. 08/26/2016 10:57 AM Dictated Date/Time: 08/26/2016 10:49 AM The status of this report is Signed. Draft = Not yet reviewed or approved by Radiologist. Signed = Reviewed and approved by Radiologist. <AttendingPhy></AttendingPhy> <FamilyPhy>Diego Rooney MD, Urology</ FamilyPhy> <PrimaryPhy>Jonathan Mae M.D.</PrimaryPhy> <UnitNumber>[id number]< /UnitNumber> <VisitNumber>[id number]</VisitNumber> <PatientName>BREANA WHITE< /PatientName> <DateOfBirth>1930</DateOfBirth> <Location>[facility]</Location> < ServiceDate>08/26/16</ServiceDate> <MNE>ESINDI</MNE> <OrderingPhy>Willis Cardoso PA-C</OrderingPhy> <OrderingPhyMNE>f rep ord mne</OrderingPhyMNE> < DictatingPhyMNE>f rep dict mne</DictatingPhyMNE> <CCListMNE>f rep ct mne</ CCListMNE> <AdmittingPhyMNE>f pt admit dr reza</AdmittingPhyMNE> <AttendingPhyMNE >f pt attend dr reza</AttendingPhyMNE> <ConsultingPhyMNE>f pt consult dr reza</ConsultingPhyMNE> <FamilyPhyMNE>f pt fam dr reza</FamilyPhyMNE> <OtherPhyMNE>f pt other dr reza</OtherPhyMNE> < PrimaryPhyMNE>f pt prim care dr reza</PrimaryPhyMNE> <ReferringPhyMNE>f pt referring dr reza</ReferringPhyMNE> Impression Assessment and Plan 86 y/o male with a history of a-fib on chronic AC, pacemaker, CAD, HTN, HLD, chronic diastolic CHF, COPD, BPH, RLS, B cell lymphoma and GERD who presented to the ED on 08/26 with hematuria. Patient afebrile, VSS. 16 Azeri Hurtado placed in ED which drained dark red urine. CT of the abdomen and pelvis shows large 7.7 x 5 cm blood clot in bladder and moderate bladder distention. There is a moderate to large right pleural effusion. WBC slightly elevated at 11.15. Hgb down to 11.3. Sodium 131. UA positive for sameer hematuria. Hematuria w/clots, acute anemia, h/o BPH -Admit to med/surg -Urology consulted, appreciate recs: Change catheter to 22 Azeri and irrigate as needed. -Nursing order for catheter irrigation prn placed -Hold ASA and Xarelto -Recheck H&H at 1800 -Hgb down to 11.3. Last Hgb checked January 2016 was WNL at 14 -Substitute Missy with finasteride 5 mg PO qam and tamsulosin 0.4 mg PO qam Pleural effusion, chronic diastolic CHF--pt has h/o pleural effusion secondary to CHF. Had thoracentesis at that time -Obtain CXR -Hold off on cardiothoracic surgery consult for now as pt largely asymptomatic -Pt typically takes Lasix only prn at home -Schedule Lasix 20 mg PO qd, one dose now -Daily weights, I's & O's A-fib, pacemaker--stable, paced rhythm -Xarelto on hold due to hematuria -Obtain EKG CAD--h/o LAD stent in 1999 -Hold ASA due to bleeding HTN--stable -Continue losartan 50 mg PO qd HLD -Continue lovastatin 20 mg PO qhs COPD--stable -Continue Spiriva handihaler 1 puff inh qd and Symbicort 2 puffs inh BID RLS -Continue clonazepam 0.5 mg PO qhs GERD -Substitute Prilosec for pantoprazole 40 mg PO qd LLE radiculopathy s/p L4-S1 laminectomy -Continue gabapentin 400 mg PO qam, 300 mg PO at noon, and 400 mg PO qpm DVT prophylaxis -Hold chemical prophylaxis due to hematuria -SANDRA pitts and SCDs Code Status -Level I, FULL RESUSCITATION STATUS This chart was completed in part utilizing [employer] Speech Voice Recognition software. Attempts were made to minimize the grammatical errors, random word insertions, pronoun errors and incomplete sentences. Any formal questions or concerns about the content, text or information contained within the body of this dictation should be directly addressed to the provider for clarification. Level of Care Med/Surg Advanced Directives Existing Living Will: Yes Existing Power of Evaluation Analyst: Yes Resuscitation Status FULL RESUSCITATION VTE Prophylaxis VTE Risk Assessment Done? Y/N: Yes Risk Level: Moderate Given or contraindicated: T.Bradley Stockings, SCD's Reviewed: Pt Seen/Exam by Me History Physician Nat Instructor Supervision Note: I interviewed and examined the patient. Discussed with MARTHA Ladd and agree with findings and plan as documented in the note. Any exceptions or clarifications are listed here: Patient presented with gross hematuria after performing self-catheterization of the bladder this week at home and is on Xarelto and aspirin. With large clot in the bladder seen on imaging. This is most likely secondary to trauma in the setting of anticoagulants. Vitals reviewed No acute distress, alert awake oriented 3, very pleasant Regular rate and rhythm, no murmurs Rubs Lungs Clear to Auscultation except Decreased at the Right Base Abdomen Positive Bowel Sounds Soft Nontender Nondistended, Penis Appears Normal with Some Fresh Blood around the Site of the Hurtado Catheter Extremities with trace to 1+ pitting edema to the knees bilaterally Skin no rashes -Appreciate urology consultation -Continue bladder irrigation as needed and we'll see if will need cystoscopy -Holding anticoagulation and antiplatelets for now and trending hemoglobin -His right-sided pleural effusion is chronic in nature and he has a very large hiatal hernia but is not symptomatic at all with this-no need to consult thoracic surgery at this time Documented By: Enid Lorenz
--- NOTE | 2016-08-26 15:56 | DIAGNOSTIC IMAGING REPORT ---
CHEST ONE VIEW PORTABLE CLINICAL HISTORY: Pleural effusion on abdomen/pelvis CT COMPARISON STUDY: Chest radiograph March 15, 2015. FINDINGS: A single lead left pacer is in place. There is no pneumothorax. A large hiatal hernia is noted. There is pulmonary vascular congestion. A small to moderate right pleural effusion is noted. IMPRESSION: 1. Small to moderate right pleural effusion. 2. Pulmonary vascular congestion without overt edema. 3. Large hiatal hernia. Electronically signed by: Sriram Cates M.D. 08/26/2016 3:55 PM Dictated Date/Time: 08/26/2016 3:53 PM
[2016-08-26 16:30] VITALS: BP 154/87; PULSE 76; TEMP 36.3; O2SAT 94
[2016-08-26] MEDS ORDERED: FUROSEMIDE 20 MG TAB PO ONE (17:00)
[2016-08-26 18:33] LABS: HEMATOCRIT 33.8 % (42-52)
[2016-08-26] MEDS ORDERED: LOSARTAN POTASSIUM 50 MG TAB PO SCH (21:00)
[2016-08-26] MEDS ORDERED: CLONAZEPAM 0.5 MG TAB PO SCH (21:00)
[2016-08-26] MEDS ORDERED: LOVASTATIN 20 MG TAB PO SCH (21:00)
[2016-08-26] MEDS: ACETAMINOPHEN 325 MG TAB PO PRN (21:43)
[2016-08-26] MEDS: GABAPENTIN 400 MG CAP PO SCH (21:44)
[2016-08-26] MEDS: BUDESONIDE/FORMOTEROL FUMARATE 160/4.5 60 PUFFS/INHALER INH SCH (21:50)
[2016-08-26] MEDS ORDERED: NURSING VERBAL MED ORDER ONE (22:30)
[2016-08-26 23:07] VITALS: BP 155/85; PULSE 69; TEMP 37.1; O2SAT 90
[2016-08-27 03:53] VITALS: BP 114/77; PULSE 75; TEMP 36.8; O2SAT 92
[2016-08-27 06:34] LABS: HEMATOCRIT 30.3 % (42-52); MEAN CELL VOLUME 75.9 fL (80-100); MEAN CORPUSCULAR HEMOGLOBIN 25.1 pg (25-34); MEAN PLATELET VOLUME 9.4 fL (7.4-10.4); PLATELET COUNT 228 K/uL (130-400); RED BLOOD COUNT 3.99 M/uL (4.7-6.1)
[2016-08-27 07:09] LABS: BUN/CREATININE RATIO 18.9 (10-20); CALCIUM 8.5 mg/dl (8.5-10.1); CREATININE 0.97 mg/dl (0.60-1.40); POTASSIUM 4.5 mmol/L (3.5-5.1)
[2016-08-27 07:21] VITALS: BP 124/82; PULSE 80; TEMP 36.6; O2SAT 94
[2016-08-27] MEDS: GABAPENTIN 400 MG CAP PO SCH (08:12)
[2016-08-27] MEDS: BUDESONIDE/FORMOTEROL FUMARATE 160/4.5 60 PUFFS/INHALER INH SCH (08:14)
[2016-08-27] MEDS: ACETAMINOPHEN 325 MG TAB PO PRN (08:19)
[2016-08-27] MEDS ORDERED: TIOTROPIUM BROMIDE 5 PUFF/90 MCG INH INH SCH (09:00)
[2016-08-27] MEDS ORDERED: TAMSULOSIN HCL 0.4 MG CAP PO SCH ×2 (09:00→21:00)
[2016-08-27] MEDS ORDERED: FINASTERIDE 5 MG TAB PO SCH ×2 (09:00→21:00)
[2016-08-27] MEDS ORDERED: PANTOprazole SOD 40 MG TAB PO SCH (09:00)
[2016-08-27] MEDS ORDERED: FUROSEMIDE 20 MG TAB PO SCH (09:00)
--- NOTE | 2016-08-27 09:04 | Urology Consultation ---
History General Date of Service: Aug 27, 2016. Primary Care Physician: Jonathan Mae M.D. Pt seen a urologist before?: Yes If yes, why?: BPH; hematuria History of Present Illness 86-year-old gentleman status post recent orthopedic spine surgery in [place], presenting to the ER last night after 24 hours of progressive hematuria History catheter placed at the time of the surgery but subsequently passed a voiding trial in our office. He was taught CIC but fortunately did not have to perform frequently after his catheter was removed. He started to note progressive hematuria beginning yesterday morning No associated symptoms, no pain, no fevers, no dysuria Initially he was able to void, however, as the day progressed voiding became much more challenging. Evaluation in the ER included CT CT appears to show clot and blood within the bladder. No clear tumors, no renal masses, no hydronephrosis Of note he is chronically anticoagulated on Xarelto and ASA Laboratory Labs were reviewed and are within normal limits unless listed below. Labs are available in the chart and at [facility] Problem List Medical Problems: (1) Anemia Status: Acute Past History A Fib, BPH, chronic back pain, high cholesterol, hypertension Past Surgical History: spinal surgery Family History Cancer (breast) Hyperlipidemia Hypertension Social History Hx Tobacco Use In Past Year?: No Marital status: Housing status: lives with significant other Occupation status: retired History of MDRO No Allergies Coded Allergies: Pregabalin (Verified Allergy, Severe, shortness of breath, 08/26/16) Codeine (Verified Allergy, Unknown, DROWSY, 08/26/16) Diphenhydramine (Verified Allergy, Unknown, DROWSY, 08/26/16) Medications Home Medications: Home Meds and Scripts Medications Dose Route/Sig Max Daily Dose Days Date Category Dose Instructions Symbicort 160/4.5 Inhaler (Budesonide/Formoterol Fumarate) Aero 2 Puffs INH BID 08/26/16 Reported Ipratropium [place] (Ipratropium [place] (Nasal)) 0.06 % Spr 1 [place] MARIO PRN 08/26/16 Reported Glucosamine-Chondroitin 500 Mg/400 Mg (Glucosamine/Chondroitin) 1 Cap Cap 1 Cap PO QAM 08/26/16 Reported Ascorbic Acid 500 Mg Tab 500 Mg PO QAM 08/26/16 Reported Proair Respiclick (Albuterol Sulfate) 108 Mcg/Act Aer 2 Puffs INH Q4H PRN 08/26/16 Reported Tramadol HCl 50 Mg Tab 1 Tab PO Q6H 08/26/16 Reported Gabapentin 300 Mg Cap TID 08/26/16 Reported 400MG AM 300MG NOON 400MG PM Xarelto (Rivaroxaban) 20 Mg Tab 1 Tab PO QPM 08/26/16 Reported Zyrtec-D Er 5MG/120MG (Cetirizine/Pseudoephedrine) Tabcr 1 Tab PO BID PRN 15 09/21/15 Reported Lasix (Furosemide) 20 Mg Tab 20 Mg PO DAILY PRN 90 09/21/15 Reported Mevacor (Lovastatin) 20 Mg Tab 20 Mg PO HS 09/21/15 Reported Cozaar (Losartan Potassium) 50 Mg Tab 1 Tab PO QPM 30 02/03/15 Reported Spiriva Respimat (Tiotropium [place]) 2.5 Mcg/Act Spr 2 Puffs INH QAM 12/03/14 Reported Missy (Dutasteride-Tamsulosin Hcl) 1 Cap Cap 1 Tab PO QPM 01/14/14 Reported Tessalon Perles (Benzonatate) 100 Mg Cap 100 Mg PO UD PRN 10/25/13 Reported Tylenol Pm (Diphenhydramine-Acetaminophen) 1 Tab Tab 1 Tab PO HS PRN 11/06/11 Reported Zantac (Ranitidine HCl) 150 Mg Tab 75 Mg PO BID PRN 11/06/11 Reported Klonopin (Clonazepam) 0.5 Mg Tab 0.5 Mg PO HS 11/06/11 Reported Aspirin Chewable (Aspirin) 81 Mg Chew 81 Mg PO QAM 11/06/11 Reported Prilosec (Omeprazole) 20 Mg Capcr 20 Mg PO AMPM 11/06/11 Reported Inpatient Medications: Current Inpatient Medications Medications (Trade) Dose Ordered Sig/Larry Route Start Time Stop Time Status Last Admin Dose Admin Acetaminophen (Tylenol Tab) 650 mg Q4H PRN PO 08/26/16 14:45 09/25/16 14:44 08/27/16 08:19 650 MG Al Hydrox/Mg Hydrox/Simethicone (Maalox Max Susp) 15 ml Q4H PRN PO 08/26/16 14:45 09/25/16 14:44 Magnesium Hydroxide (Milk Of Magnesia Susp) 30 ml Q6H PRN PO 08/26/16 14:45 09/25/16 14:44 Polyethylene (Miralax Powder Packet) 17 gm DAILY PRN PO 08/26/16 14:45 09/25/16 14:44 Ondansetron HCl (Zofran Inj) 4 mg Q6H PRN IV 08/26/16 14:45 09/25/16 14:44 Budesonide/ Formoterol Fumarate (Symbicort 160/ 4.5 Inh) 2 puffs BID INH 08/26/16 21:00 09/25/16 20:59 08/27/16 08:14 2 PUFFS Clonazepam (Klonopin Tab) 0.5 mg HS PO 08/26/16 21:00 09/25/16 20:59 08/26/16 21:42 0.5 MG Gabapentin (Neurontin Cap) 400 mg BID PO 08/26/16 21:00 09/25/16 20:59 08/27/16 08:12 400 MG Losartan Potassium (coZAAR TAB) 50 mg QPM PO 08/26/16 21:00 09/25/16 20:59 08/26/16 21:45 50 MG Lovastatin (Mevacor Tab) 20 mg HS PO 08/26/16 21:00 09/25/16 20:59 08/26/16 21:45 20 MG Tramadol HCl (Ultram Tab) 50 mg Q6H PRN PO 08/26/16 14:45 09/25/16 14:44 08/26/16 23:36 50 MG Pantoprazole Sodium (Protonix Tab) 40 mg QAM PO 08/27/16 09:00 09/26/16 08:59 08/27/16 08:13 40 MG Tiotropium [place] (Spiriva Handihaler Inhaler) 1 puff QAM INH 08/27/16 09:00 09/26/16 08:59 08/27/16 08:15 1 PUFF Gabapentin (Neurontin Cap) 300 mg DAILY@1200 PO 08/27/16 12:00 09/26/16 11:59 Furosemide (Lasix Tab) 20 mg QAM PO 08/27/16 09:00 09/26/16 08:59 08/27/16 08:14 20 MG Finasteride (Proscar Tab) 5 mg HS PO 08/27/16 21:00 09/26/16 20:59 Tamsulosin HCl (Flomax Cap) 0.4 mg HS PO 08/27/16 21:00 09/26/16 20:59 Review of Systems Review of Systems Constitutional: No see HPI, No fever, No chills, No frequent headaches, No weight loss, No problem reported Eyes: No see HPI, No blurred vision, No double vision, No eye pain, No loss of night vision, No problem reported Neurological: No see HPI, No dizzy, No passing out, No numbness/tingling, No seizures, No problem reported Endocrine: No see HPI, No excessive thirst, No too hot, No too cold, No tired/ sluggish, No problem reported Gastrointestinal: + abdominal pain Cardiovascular: No see HPI, No heart murmur, No chest pain, No angina, No irregular heartbeat, No palpitations, No swelling ankles/feet, No problem reported Respiratory: No see HPI, No shortness of breath, No wheezing, No coughing up blood, No chronic cough, No problem reported Skin: No see HPI, No rash, No boils, No dry skin, No problem reported Musculoskeletal: No see HPI, No joint pain, No neck pain, No back pain, No arthritis, No problem reported Blood / Lymphatic: No see HPI, No bleed easily, No bruise easily, No swollen glands, No problem reported Ears / Nose / Throat: No see HPI, No hearing loss, No sinus, No hoarse voice, No sore throat, No problem reported Psychologic / Mental: No see HPI, No nervous, No trouble remembering, No difficulty sleeping, No problem reported Male : + blood in urine All Other Systems: Reviewed and Negative Physical Exam Vital Signs: Vital Signs Past 12 Hours Date Time Temp Pulse Resp B/P (MAP) Pulse Ox O2 Delivery O2 Flow Rate FiO2 08/27/16 07:25 Room Air 08/27/16 07:21 36.6 80 16 124/82 (96) 94 Room Air 08/27/16 03:53 36.8 75 18 114/77 (89) 92 Room Air 08/26/16 23:30 Room Air 08/26/16 23:07 37.1 69 18 155/85 (108) 90 Room Air Physical Exam: General Appearance: WD/WN, no apparent distress Eyes: bilateral eyes normal inspection ENT: normal ENT inspection, hearing grossly normal Neck: supple Respiratory/Chest: no respiratory distress, no accessory muscle use Cardiovascular: regular rate, rhythm, no edema Gastrointestinal: Abdomen: normal abdomen (no suprapubic tenderness; no CVA tenderness) Bladder: pertinent finding (22 [place] [address] catheter in place draining red urine) Extremities: no pedal edema, no calf tenderness Neurologic/Psychiatric: alert, normal mood/affect, oriented x 3 Skin: warm/dry Lymphatic: no adenopathy Assessment & Plan Assessment & Plan Gross hematuria likely secondary to Hurtado trauma and anticoagulation I irrigated his bladder with normal saline evacuating a moderate amount of clot. His urine cleared appropriately after this irrigation. Hurtado catheter was left in place. Plan: Leave catheter in place for the next 3-5 hours, if urine remains clear, removed catheter and discharge patient home after he voids Continue to hold Xarelto for another 48 hours Patient is scheduled for follow-up in our office tomorrow at which time we'll reevaluate him. If his urine proves to get bloody again keep overnight with Hurtado catheter and we will reevaluate in the hospital on the morning
[2016-08-27] MEDS ORDERED: GABAPENTIN 300 MG CAP PO SCH (12:00)
[2016-08-27 15:26] VITALS: BP 106/65; PULSE 78; TEMP 36.7; O2SAT 96
--- NOTE | 2016-08-27 18:06 | Discharge Instructions ---
Discharge Instructions Date of Service Aug 27, 2016. Admission Reason for Admission: Hematuria Discharge Discharge Diagnosis / Problem: Hematuria Discharge Goals Goal(s): Improve function, Improve disease control Activity Recommendations Activity Limitations: resume your previous activity . Instructions / Follow-Up Instructions / Follow-Up You were admitted to [facility] for hematuria, which is blood in your urine. You were found to have considerable amount of blood and clots in your urine which was irrigated with water through a stephenson catheter until completely clear. We checked to see if there was blood in your stool and there was none. During this process, you complained of some abdominal pressure which resolved as your bladder emptied. You have a follow up tomorrow with Dr. Rooney to be re-evaluated. You have been taking Xarelto for your atrial fibrillation. We discussed the pros/cons of restarting this medication and we will hold it until your re-evaluation by Dr. Rooney, at which point a decision will be made to restart. We will get you a follow up appointment with your primary care, Dr. Mae, as well. Current Hospital Diet Patient's current hospital diet: AHA Diet (Heart Healthy) Discharge Diet Recommended Diet: Regular Diet Pending Studies Studies pending at discharge: no Laboratory Results Hemoglobin A1c Test 05/30/16 13:58 Range/Units Estimated Average Glucose 117 mg/dl Hemoglobin A1c 5.7 H 4.5-5.6 % Medical Emergencies . Who to Call and When: Medical Emergencies: If at any time you feel your situation is an emergency, please call 911 immediately. . Non-Emergent Contact Non-Emergency issues call your: Primary Care Provider, Urologist Call Non-Emergent contact if: temperature is above 100.5, your pain is worsening, you have any medication questions . . "Provider Documentation" section prepared by Masood Hawkins. . VTE Core Measure Inpt VTE Proph given/why not?: Juana Stratton, SCD's
[2016-08-27 18:53] VITALS: BP 106/65; PULSE 78; TEMP 36.7; O2SAT 96
--- NOTE | 2016-08-27 19:07 | Discharge Summary ---
Discharge Summary Date of Service Aug 27, 2016. Discharge Summary Admission Date: Aug 26, 2016 at 14:51 Discharge Date: Aug 27, 2016 Discharge Disposition: Home Principal Diagnosis: hematuria Procedures: Setphenson catheter placement and clot irrigation Consultations: Urology Medication Reconciliation Continued Medications: Albuterol Sulfate (Proair Respiclick) 108 Mcg/Act Aer 2 PUFFS INH Q4H PRN for SOB/Wheezing Ascorbic Acid (Ascorbic Acid) 500 Mg Tab 500 MG PO QAM Aspirin (Aspirin Chewable) 81 Mg Chew 81 MG PO QAM Budesonide/Formoterol Fumarate (Symbicort 160/4.5 Inhaler ) Aero 2 PUFFS INH BID, INHALER Clonazepam (Klonopin) 0.5 Mg Tab 0.5 MG PO HS Dutasteride-Tamsulosin Hcl ([place]) 1 Cap Cap 1 TAB PO QPM Furosemide (Lasix) 20 Mg Tab 20 MG PO DAILY PRN for LEG SWELLING for 90 Days, #90 TAB 1 Refill Gabapentin (Gabapentin) 300 Mg Cap TID 400MG AM 300MG NOON 400MG PM Glucosamine-Chondroitin 500MG/400 Mg (Glucosamine-Chondroitin 500 Mg/400 Mg) 1 Cap Cap 1 CAP PO QAM Ipratropium [place] (Nasal) (Ipratropium [place]) 0.06 % Spr 1 SPRAY MARIO PRN for Nasal Congestion Losartan Potassium (Cozaar) 50 Mg Tab 1 TAB PO QPM for 30 Days, TAB 5 Refills Lovastatin (Mevacor) 20 Mg Tab 20 MG PO HS, TAB Omeprazole (Prilosec) 20 Mg Capcr 20 MG PO AMPM Ranitidine (Zantac) 150 Mg Tab 75 MG PO BID PRN for Dyspepsia Rivaroxaban (Xarelto) 20 Mg Tab 1 TAB PO QPM Tiotropium [place] (Spiriva Respimat) 2.5 Mcg/Act Spr 2 PUFFS INH QAM Tramadol HCl (Tramadol HCl) 50 Mg Tab 1 TAB PO Q6H for Pain Discontinued Medications: Benzonatate (Tessalon Perles) 100 Mg Cap 100 MG PO UD PRN for Cough Cetirizine/Pseudoephedrine (Zyrtec-D Er 5MG/120MG) Tabcr 1 TAB PO BID PRN for PRN for 15 Days, #30 TAB Diphenhydramine-Acetaminophen (Tylenol Pm) 1 Tab Tab 1 TAB PO HS PRN for Sleep Discharge Exam Mr. Cummings was admitted to [facility] with gross hematuria with mild blood loss anemia. He was evaluated by urology and a catheter was placed for irrigation of the clot with significant improvement and eventual resolution of hematuria grossly. After resolution, the stephenson was removed and his voiding trial was passed and he was cleared for discharge by urology. His FOBT was negative in the hospital. At this time, we are going to hold on restarting his Xarelto until his re-evaluation tomorrow by urology, at which time it would be reasonable to restart unless extenuating circumstances are present. At time of examination today, he was resting comfortably with some abdominal fullness which improved w/ irrigation of the stephenson and resolved w/ hematuria. He reported no JARRETT, lightheadedness, CP/SOB, palpitations, paresthesias, nausea/ vomiting, fevers. Review of Systems: Constitutional: No fever, No chills, No sweats Respiratory: No cough, No shortness of breath, No dyspnea on exertion, No dyspnea at rest Cardiovascular: No chest pain, No edema, No claudication, No palpitations Abdomen: No pain, No nausea, No vomiting, No diarrhea Neurologic: No weakness, No numbness/tingling, No vertigo Physical Exam: General Appearance: WD/WN, no apparent distress Respiratory/Chest: chest non-tender, lungs clear, normal breath sounds, no respiratory distress Cardiovascular: regular rate, rhythm, no edema, no murmur Abdomen / GI: normal bowel sounds, non tender, soft, no organomegaly Hospital Course 86 y/o male h/o atrial fibrillation on Xarelto, CAD w/ pacemaker, HTN< HLD, dCHF , COPD, BPH, RLS< B cell lymphoma, GERD presented to the ED w/ hematuria Hematuria - resolved - passed voiding trial - hold xarelto and ASA until re- evaluation by urology on 08.28, recheck H/H as outpt at follow up. Precautions reviewed re: anemia. Continue delonte and tamsulosin Pleural effusion in the setting of dCHF - avoid fluid overload, continue lasix as outaptient Atrial fibrillation - pacemaker, holding AC as above CAD h/o LAD stent - holding ASA HTN - continue losartan HLD - continue statin therapy COPD - continue spiriva and symbicort RLS - continue clonazepam GERD - continue pantoprazole 40 mg PO qd LLE radiculopathy s/p L4-S1 laminectomy - Continue gabapentin Total Time Spent: Greater than 30 minutes This includes examination of the patient, discharge planning, medication reconciliation, and communication with other providers. Discharge Instructions Please refer to the electronic Patient Visit Report (Discharge Instructions) for additional information.
[2016-10-02] MEDS ORDERED: XRL10 PO (09:55)
[2016-10-02] MEDS ORDERED: FURO-85 PO (09:55)
[2016-10-02] MEDS ORDERED: [UNRECOGNIZED DRUG - OTHER] PEG (09:58)
[2016-10-02] MEDS ORDERED: CALC625T13 PO (09:58)
[2016-10-02] MEDS ORDERED: GABA-112 PO (09:58)
== END 2016-08-27 19:15 | disposition home or self-care (01) | DRG 813 ==
LOC: C.EDB 08:41 → C.MSW 14:51 → EDBEDREQ 14:53 → ENRESERV 15:17
PROVIDERS: ADMIT Family Medicine; ATTEND Family Medicine
PROC: 0T9B70Z Drainage of Bladder with Drainage Device, Via Natural or Artificial Opening (ICD-10-PCS; principal; 2016-08-26)
DX: D68.32 Hemorrhagic disorder due to extrinsic circulating anticoagulants (principal); I50.32 Chronic diastolic (congestive) heart failure; C83.30 Diffuse large B-cell lymphoma, unspecified site; D62 Acute posthemorrhagic anemia; T45.515A Adverse effect of anticoagulants, initial encounter; R31.0 Gross hematuria; J44.9 Chronic obstructive pulmonary disease, unspecified; N40.0 Benign prostatic hyperplasia without lower urinary tract symptoms; I11.0 Hypertensive heart disease with heart failure; I48.91 Unspecified atrial fibrillation; Z95.0 Presence of cardiac pacemaker; K21.9 Gastro-esophageal reflux disease without esophagitis; E78.5 Hyperlipidemia, unspecified; G25.81 Restless legs syndrome; Z95.5 Presence of coronary angioplasty implant and graft; I25.10 Atherosclerotic heart disease of native coronary artery without angina pectoris; Y92.019 Unspecified place in single-family (private) house as the place of occurrence of the external cause; Z79.01 Long term (current) use of anticoagulants; Y84.6 Urinary catheterization as the cause of abnormal reaction of the patient, or of later complication, without mention of misadventure at the time of the procedure

== ENCOUNTER 2016-09-01 16:51 | Observation (INO) | payer BC ==
[~2016-09-01] VITALS: Ht 172.7 cm; Wt 78.8 kg
[~2016-09-01 16:51] MED LIST changes: +ALBU18002 INH; -ALBU1AER9 INH; -ASCAUNK PO; +ASCO500T16 PO; -BENZ100C84 PO; -CETITAB27 PO; -DIPH-437 PO; +GABA1CAP4 PO; -GINK60CA2 PO; -GLCSC750600 PO; +GLUC500C60 PO; -IPRA0.037; +IPRA0.06 NAE; -OXYC-57 PO; +SYMIN160 INH; +ULT50 PO
--- NOTE | 2016-09-01 17:39 | EMERGENCY ROOM VISIT NOTE ---
History Report prepared by Candy: Benny Giordano Under the Supervision of: Dr. Geovanna Villalpando D.O. First contact with patient: 17:13 Chief Complaint: SHORTNESS OF BREATH Stated Complaint: SOB;LOW BLOOD PRESSURE History of Present Illness The patient is a 86 year old male who presents to the Emergency Room with complaints of worsening shortness of breath that has been occurring for two days. The patient is accompanied by his who states that he has been weak and short of breath, which has been the worst today. He admits that the shortness of breath is worsened with exertion. The patient states that when he goes up the stairs, it takes him ten minutes to get his breathing back to baseline. He states that he went to visit Dr. Ribeiro for his symptoms and was found to have a low blood pressure. The patient admits that he has had these symptoms before, but denies his symptoms being this severe. He reports that he was in the ED a week ago due to urinary symptoms and hematuria. He states that he was diagnosed with a blood clot in his bladder and reports that there was fluid around his lung, which was found on the CT scan. The patient states that he has had fluid in his lungs in the past, which he had to have removed twice. The patient states that he currently is not experiencing hematuria or urinary symptoms. He also reports that he had a laminectomy done on August 10, and admits that he stopped taking pain medication due to hallucinations and confusion. His states that the patient was experiencing a mild cough and swelling to his lower extremities, which she admits is normal. She states that he typically takes Furosemide for as needed to reduce his edema to his lower extremities, and he admits it helps relieve symptoms. The patient states that he has a history of COPD, asthma, congestive heart failure, hiatal hernia, acid reflux, which he takes medication for as needed, and heart disease. He states that he follows up for his heart problems with a rail signal worker every 6 months and his last echo was a couple of months ago. The patient also reports that he has a pacemaker for his heart problems. He reports that he usually takes Gabapentin, but his states that he gets confused in the afternoon when he takes his medication. States this improves into the evening. The patient admits that he has a follow up with his railway engineer on September 12, prostate surgery in October for his prostate hypertrophy, and an appointment with his PCP in a week. The patient denies any fever, chest pain, chest pressure, nausea, vomiting , and diarrhea. No other recent illness, no falls. Source of History: patient Onset: two days ago Position: other (global) Timing: intermittent Modifying Factors (Worsening): exertion Associated Symptoms: No fevers, No chest pain, No nausea, No vomiting, No diarrhea Review of Systems See HPI for pertinent positives & negatives. A total of 10 systems reviewed and were otherwise negative. Past Medical & Surgical Medical Problems: (1) Asthma (2) Bronchitis (3) Enlarged prostate (4) Hematuria (5) Lymphoma (6) Pulmonary edema Family History Cancer (breast) Hyperlipidemia Hypertension Social History Smoking Status: Never Smoker Alcohol Use: occasionally Drug Use: none Marital Status: Housing Status: lives with significant other Occupation Status: retired Current/Historical Medications Scheduled Acetaminophen (Tylenol), 650 MG PO AMPM Ascorbic Acid (Ascorbic Acid), 500 MG PO QAM Aspirin (Aspirin Ec), 81 MG PO DAILY Budesonide/Formoterol Fumarate (Symbicort 160/4.5 Inhaler ), 2 PUFFS INH BID Clonazepam (Klonopin), 0.5 MG PO HS Dutasteride-Tamsulosin Hcl (Missy), 1 TAB PO QPM Gabapentin (Gabapentin), 300 MG PO DAILY Gabapentin (Neurontin), 400 MG PO AMPM Glucosamine-Chondroitin 500MG/400 Mg (Glucosamine-Chondroitin 500 Mg/400 Mg), 1 CAP PO QAM Losartan Potassium (Cozaar), 50 MG PO QPM Lovastatin (Mevacor), 20 MG PO HS Omeprazole (Prilosec), 20 MG PO AMPM Rivaroxaban (Xarelto), 20 MG PO QPM Tiotropium [place] (Spiriva Respimat), 2 PUFFS INH QAM Scheduled PRN Acetaminophen/Diphenhydramine (Tylenol Pm), 1 TAB PO HS PRN for Sleep Albuterol Hfa (Ventolin Hfa), 2 PUFFS INH Q4 PRN for SOB/Wheezing Benzonatate (Tessalon Perles), 100 MG PO TID PRN for Cough Cetirizine (Zyrtec), 10 MG PO DAILY PRN for ALLERGIES Furosemide (Lasix), 10-20 MG PO DAILY PRN for LEG SWELLING Ipratropium [place] (Nasal) (Ipratropium [place]), 1 SPRAY MARIO for Nasal Congestion Oxycodone/Acetaminophen 5MG/325MG (Percocet 5MG/325MG), 1 TABLET PO Q4H PRN for Pain Ranitidine (Zantac), 75 MG PO BID PRN for Dyspepsia Tramadol HCl (Tramadol HCl), 50 MG PO Q6H PRN for Pain Allergies Coded Allergies: Pregabalin (Verified Allergy, Severe, shortness of breath, 08/26/16) Codeine (Verified Allergy, Unknown, DROWSY, 08/26/16) Diphenhydramine (Verified Allergy, Unknown, DROWSY, 08/26/16) Physical Exam Vital Signs Date Time Temp Pulse Resp B/P (MAP) Pulse Ox O2 Delivery O2 Flow Rate FiO2 09/01/16 22:03 82 18 150/115 92 Room Air 09/01/16 19:51 78 18 122/96 94 Room Air 09/01/16 19:37 122 20 91 Room Air 09/01/16 16:57 36.5 89 22 95/63 92 Room Air Physical Exam GENERAL: alert, well appearing, well nourished, no distress, non-toxic EYE EXAM: normal conjunctiva, PERRL and EOM's grossly intact OROPHARYNX: no exudate, no erythema, lips, buccal mucosa, and tongue normal and mucous membranes are moist NECK: supple, no nuchal rigidity, no adenopathy, non-tender LUNGS: Clear to auscultation. Diminished bilaterally. Normal chest wall mechanics, no w/r/r HEART: no murmurs, S1 normal and S2 normal ABDOMEN: abdomen soft, non-tender, normo-active bowel sounds, no masses, no rebound or guarding. BACK: Back is symmetrical on inspection and there is no deformity, no midline tenderness, no CVA tenderness. SKIN: no rashes and no bruising UPPER EXTREMITIES: upper extremities are grossly normal. LOWER EXTREMITIES: No pitting edema. 1+ bilateral edema NEURO EXAM: Normal sensorium, cranial nerves II-XII grossly intact, normal speech, no gross weakness of arms, no gross weakness of legs. Gross sensation intact. Medical Decision & Procedures ER Provider Diagnostic Interpretation: Radiology results have been interpreted by the radiologist and reviewed by me. CHEST ONE VIEW PORTABLE CLINICAL HISTORY: sob dyspnea COMPARISON STUDY: 08/26/2016 FINDINGS: Right pleural effusion unchanged in the prior exam. Hiatal hernia. Probable consolidative change medial aspect left base unchanged. Persistent prominence of pulmonary vasculature. IMPRESSION: Pulmonary vascular congestion with an unchanging right pleural effusion. No significant change compared to the prior study. The above report was generated using voice recognition software. It may contain grammatical, syntax or spelling errors. Electronically signed by: Duc Fleming M.D. 09/01/2016 6:15 PM Dictated Date/Time: 09/01/2016 6:14 PM (CHEST FOR PE) ANGIO WITH CT DOSE: 549.94 mGycm HISTORY: Chest pain dyspnea TECHNIQUE: Multiaxial CT images of the chest were performed following the intravenous administration of contrast to evaluate the pulmonary arteries. Maximal intensity projection images were also obtained. A dose lowering technique was utilized adhering to the principles of ALARA. COMPARISON STUDY: 06/16/2011 FINDINGS: Right pleural effusion increased in volume from the prior study read large fixed lateral hernia unchanged. Tortuosity and ectasia thoracic aorta unchanged. Pulmonary vasculature enhances uniformly. There are no filling defects. Minimal scattered parenchymal nodularity stable from the prior study. Mild bibasilar atelectatic change. Moderate stable cardiomegaly. IMPRESSION: 1. Study is negative for pulmonary embolus. 2. Right pleural effusion increased in volume from the prior study. 3. Large fixed hiatal hernia unchanged from the prior exam. 4. Mild bibasilar atelectatic change. 5. Stable bilateral parenchymal nodularity. 6. Moderate cardiomegaly. The above report was generated using voice recognition software. It may contain grammatical, syntax or spelling errors. Electronically signed by: Duc Fleming M.D. 09/01/2016 9:34 PM Dictated Date/Time: 09/01/2016 9:30 PM Laboratory Results 09/01/16 18:00 Red Blood Count 3.85, Mean Corpuscular Volume 75.8, Mean Corpuscular Hemoglobin 24.7, Mean Corpuscular Hemoglobin Concent 32.5, Mean Platelet Volume 8.8, Neutrophils (%) (Auto) 61.8, Lymphocytes (%) (Auto) 13.6, Monocytes (%) (Auto) 15.2, Eosinophils (%) (Auto) 8.2, Basophils (%) (Auto) 0.5, Neutrophils # (Auto ) 4.61, Lymphocytes # (Auto) 1.01, Monocytes # (Auto) 1.13, Eosinophils # (Auto ) 0.61, Basophils # (Auto) 0.04 09/01/16 18:00 Test 09/01/16 18:00 White Blood Count 7.45 K/uL (4.8-10.8) Red Blood Count 3.85 M/uL (4.7-6.1) Hemoglobin 9.5 g/dL (14.0-18.0) Hematocrit 29.2 % (42-52) Mean Corpuscular Volume 75.8 fL (80-100) Mean Corpuscular Hemoglobin 24.7 pg (25-34) Mean Corpuscular Hemoglobin Concent 32.5 g/dl (32-36) Platelet Count 221 K/uL (130-400) Mean Platelet Volume 8.8 fL (7.4-10.4) Neutrophils (%) (Auto) 61.8 % Lymphocytes (%) (Auto) 13.6 % Monocytes (%) (Auto) 15.2 % Eosinophils (%) (Auto) 8.2 % Basophils (%) (Auto) 0.5 % Neutrophils # (Auto) 4.61 K/uL (1.4-6.5) Lymphocytes # (Auto) 1.01 K/uL (1.2-3.4) Monocytes # (Auto) 1.13 K/uL (0.11-0.59) Eosinophils # (Auto) 0.61 K/uL (0-0.5) Basophils # (Auto) 0.04 K/uL (0-0.2) RDW Standard Deviation 46.1 fL (36.4-46.3) RDW Coefficient of Variation 16.5 % (11.5-14.5) Immature Granulocyte % (Auto) 0.7 % Immature Granulocyte # (Auto) 0.05 K/uL (0.00-0.02) Prothrombin Time 13.8 SECONDS (9.0-12.0) Prothromb Time International Ratio 1.3 (0.9-1.1) D-Dimer 1190 ug/L FEU (0-500) Anion Gap 6.0 mmol/L (3-11) Est Creatinine Clear Calc Drug Dose 54.7 ml/min Estimated GFR () 78.1 Estimated GFR (Non- 67.4 BUN/Creatinine Ratio 16.7 (10-20) Lactic Acid Level 2.5 mmol/L (0.4-2.0) Calcium Level 8.5 mg/dl (8.5-10.1) Magnesium Level 2.2 mg/dl (1.8-2.4) Total Bilirubin 0.3 mg/dl (0.2-1) Aspartate Amino Transf (AST/SGOT) 11 U/L (15-37) Alanine Aminotransferase (ALT/SGPT) 13 U/L (12-78) Alkaline Phosphatase 85 U/L (45-117) Troponin I < 0.015 ng/ml (0-0.045) Pro-B-Type Natriuretic Peptide 1106 pg/ml (0-1800) Total Protein 6.0 gm/dl (6.4-8.2) Albumin 2.8 gm/dl (3.4-5.0) Globulin 3.2 gm/dl (2.5-4.0) Albumin/Globulin Ratio 0.9 (0.9-2) Laboratory results per my review. Medications Administered Medications (Trade) Dose Ordered Sig/Larry Route Start Time Stop Time Status Last Admin Dose Admin Sodium Chloride 1,000 ml @ 125 mls/hr Q8H STAT IV 09/01/16 18:44 09/02/16 00:37 DC 09/01/16 19:39 125 MLS/HR Furosemide (Lasix Inj) 40 mg NOW STAT IV 09/01/16 21:47 09/01/16 21:48 DC 09/01/16 21:59 40 MG ECG Indication: SOB/dyspnea Rate (beats per minute): 72 Rhythm: other (paced under Atrial fibrillation) Findings: no acute ischemic change, left axis deviation, other (Normal QRS and WTC) Comparison ECG Date: 12/07/14 Change: no significant change ED Course 1716: The patient was evaluated in room A04B. A complete history and physical exam was performed. 1732: I reviewed patient's EMR. Chest xray from [id number] notes small moderate effusion and pulmonary vascular congestion without over edema. 1843: Sodium Chloride 1000 ml @ 125 mls/hr IV. 2134: I reevaluated the patient and he is resting comfortably. He reports that his legs feel fine and he is able to ambulate without any shortness of breath. 2145: I reevaluated the patient and he is resting comfortably. I updated him on his results and advised that he should be admitted. The patient agrees to admission and will be further evaluated. 2146: Lasix Injection 40 mg IV. 2157: I discussed the patients case with Dr. Jordan, [facility] Hospitalist. He understands the patient's conditions and agrees to accept the patient. The patient will be further evaluated. Medical Decision Differential diagnoses includes but is not limited to pneumonia, bronchitis, COPD/Asthma exacerbation, pneumothorax, pulmonary embolism, congestive heart failure, acute coronary syndrome Pt likely SOB due to pleural effusion and component of CHF. Last echo in EMR from several years ago. Pt with prior cardiac hx. No current cp/sob. VS stable including BP. Pt states feeling better since arrival. Took one dose of lasix last night - which may have begun to treat his symptoms already. I do not suspect occult infiltrate/pneumonia. Pt not hypoxic here. Likely would benefit from additional diuresis. H/H slightly lower compared to prior, most likely from recent hematuria, however further anemia could contribute to SOB also. Doubt acs, no evidence of pe, dissection, aaa, tamponade, no need additional oxygen or airway support while in the ER. Doubt related to COPD or hx of sarcoid. Pt and aware of all results and agreeable with plan. Medication Reconcilliation Current Medication List: was personally reviewed by me Blood Pressure Screening Patient's blood pressure: Elevated blood pressure Blood pressure disposition: Referred to PCP Consults Time Called: 2157 Consulting Physician: Dr. Jordan [facility] Hospitalist Returned Call: [phone]: I discussed the patients case with Dr. Jordan [facility] Hospitalist. He understands the patient's conditions and agrees to accept the patient. The patient will be further evaluated. Impression Primary Impression: Dyspnea on exertion Additional Impressions: Pleural effusion Anemia Scribe Attestation The scribe's documentation has been prepared under my direction and personally reviewed by me in its entirety. I confirm that the note above accurately reflects all work, treatment, procedures, and medical decision making performed by me. Departure Information Dispostion Being Evaluated By Hospitalist Referrals Jonathan Mae M.D. (PCP) Patient Instructions My [facility] Problem Qualifiers Additional Impressions: Anemia Anemia type: unspecified type Qualified Codes: D64.9 - Anemia, unspecified
[2016-09-01] MEDS ORDERED: CETI10TA84 PO (18:06)
[2016-09-01] MEDS ORDERED: OXYC-57 PO (18:06)
[2016-09-01] MEDS ORDERED: ASPI81TA28 PO (18:06)
[2016-09-01] MEDS ORDERED: VNTHFA/IN INH (18:06)
[2016-09-01] MEDS ORDERED: GABA1CAP5 PO (18:06)
[2016-09-01] MEDS ORDERED: BENZ100C84 PO (18:06)
[2016-09-01] MEDS ORDERED: DIPH-437 PO (18:07)
[2016-09-01] MEDS ORDERED: ACET-1311 PO (18:07)
--- NOTE | 2016-09-01 18:16 | DIAGNOSTIC IMAGING REPORT ---
CHEST ONE VIEW PORTABLE CLINICAL HISTORY: sob dyspnea COMPARISON STUDY: 08/26/2016 FINDINGS: Right pleural effusion unchanged in the prior exam. Hiatal hernia. Probable consolidative change medial aspect left base unchanged. Persistent prominence of pulmonary vasculature. IMPRESSION: Pulmonary vascular congestion with an unchanging right pleural effusion. No significant change compared to the prior study. The above report was generated using voice recognition software. It may contain grammatical, syntax or spelling errors. Electronically signed by: Duc Fleming M.D. 09/01/2016 6:15 PM Dictated Date/Time: 09/01/2016 6:14 PM
[2016-09-01 18:18] LABS: BASO % 0.5 %; BASO ABS # 0.04 K/uL (0-0.2); COMPLETE YES; EOS % 8.2 %; HEMATOCRIT 29.2 % (42-52); IG% 0.7 %; LYMPH % 13.6 %; LYMPH ABS # 1.01 K/uL (1.2-3.4); MEAN CELL VOLUME 75.8 fL (80-100); MEAN CORPUSCULAR HEMOGLOBIN 24.7 pg (25-34); MEAN CORPUSCULAR HGB CONC 32.5 g/dl (32-36); MEAN PLATELET VOLUME 8.8 fL (7.4-10.4); MONO % 15.2 %; NEUT % 61.8 %; PLATELET COUNT 221 K/uL (130-400); RED BLOOD COUNT 3.85 M/uL (4.7-6.1); WHITE BLOOD COUNT 7.45 K/uL (4.8-10.8)
[2016-09-01 18:27] LABS: INR 1.3 (0.9-1.1); PROTHROMBIN TIME (PATIENT) 13.8 SECONDS (9.0-12.0)
[2016-09-01 18:36] LABS: ALT/SGPT 13 U/L (12-78); BLOOD UREA NITROGEN 17 mg/dl (7-18); BUN/CREATININE RATIO 16.7 (10-20); CALCIUM 8.5 mg/dl (8.5-10.1); CARBON DIOXIDE 28 mmol/L (21-32); CHLORIDE 103 mmol/L (98-107); GLUCOSE 105 mg/dl (70-99); MAGNESIUM 2.2 mg/dl (1.8-2.4); POTASSIUM 4.7 mmol/L (3.5-5.1); SODIUM 137 mmol/L (136-145)
[2016-09-01 18:41] LABS: ALB/GLOB RATIO 0.9 (0.9-2); ALKALINE PHOSPHATASE 85 U/L (45-117); AST/SGOT 11 U/L (15-37)
[2016-09-01] MEDS ORDERED: SODIUM CHLORIDE 0.9% 1000ML 1,000 ML IV STA (18:44)
[2016-09-01] MEDS ORDERED: OPTIRAY 320 IV PRN (20:15)
--- NOTE | 2016-09-01 21:36 | DIAGNOSTIC IMAGING REPORT ---
(CHEST FOR PE) ANGIO WITH CT DOSE: 549.94 mGycm HISTORY: Chest pain dyspnea TECHNIQUE: Multiaxial CT images of the chest were performed following the intravenous administration of contrast to evaluate the pulmonary arteries. Maximal intensity projection images were also obtained. A dose lowering technique was utilized adhering to the principles of ALARA. COMPARISON STUDY: 06/16/2011 FINDINGS: Right pleural effusion increased in volume from the prior study read large fixed lateral hernia unchanged. Tortuosity and ectasia thoracic aorta unchanged. Pulmonary vasculature enhances uniformly. There are no filling defects. Minimal scattered parenchymal nodularity stable from the prior study. Mild bibasilar atelectatic change. Moderate stable cardiomegaly. IMPRESSION: 1. Study is negative for pulmonary embolus. 2. Right pleural effusion increased in volume from the prior study. 3. Large fixed hiatal hernia unchanged from the prior exam. 4. Mild bibasilar atelectatic change. 5. Stable bilateral parenchymal nodularity. 6. Moderate cardiomegaly. The above report was generated using voice recognition software. It may contain grammatical, syntax or spelling errors. Electronically signed by: Duc Fleming M.D. 09/01/2016 9:34 PM Dictated Date/Time: 09/01/2016 9:30 PM
[2016-09-01] MEDS ORDERED: FUROSEMIDE 40 MG/4 ML VIAL IV STA (21:47)
[2016-09-01] MEDS ORDERED: MAGNESIUM HYDROXIDE SUSP 30 ML UDC PO PRN (23:45)
[2016-09-01] MEDS ORDERED: ALBUTEROL HFA 8 GM INHALER INH PRN (23:45)
[2016-09-01] MEDS ORDERED: TRAMADOL HCL 50 MG TAB PO PRN (23:45)
[2016-09-01] MEDS ORDERED: ALUMINUM/MAGNESIUM/SIMETH (MAALOX MAX) 30 ML UDC PO PRN (23:45)
[2016-09-01] MEDS ORDERED: ACETAMINOPHEN 325 MG TAB PO PRN (23:45)
[2016-09-01] MEDS ORDERED: ONDANSETRON INJ 2 MG/ML 2 ML VIAL IV PRN (23:45)
[2016-09-01] MEDS ORDERED: RANITIDINE HCL 150 MG TAB PO PRN (23:45)
[2016-09-01] MEDS ORDERED: BENZONATATE 100MG CAP PO PRN (23:45)
[2016-09-01] MEDS ORDERED: POLYETHYLENE (MIRALAX) 17 GM PACK PO PRN (23:45)
[2016-09-01] MEDS ORDERED: CETIRIZINE HCL 10 MG TAB PO PRN (23:45)
[2016-09-01] MEDS ORDERED: OXYCODONE/ACETAMINOPHEN 5-325 TAB PO PRN (23:45)
[2016-09-02] VITALS (12 sets, daily range): BP systolic 100–154; BP diastolic 65–92; PULSE 73–87; TEMP 36.4–37.1; O2SAT 90–95; Ht 172.7 cm; Wt 78.8 kg
[2016-09-02] MEDS ORDERED: IV FLUIDS COMPLETED PRN (00:30)
--- NOTE | 2016-09-02 00:34 | History and Physical ---
History & Physical Date & Time of Service: Sep 02, 2016 at 00:11 Chief Complaint: Sob;Low Blood Pressure Primary Care Physician: Jonathan Mae M.D. History of Present Illness Source: patient 86M with a PMHx of recent back surgery 23 days ago for neuropathy, A. Fib with pacemaker placement, COPD (w minimal smoking history), cardiac stents ~18years ago in the LAD artery, BPH, and a recent hospital admission for hematuria 8 days ago where a CT Abdo and Pelvis found a large blood clot in the bladder, p/ w a two day history of worsening SOB and fatigue. Pt reports that whenever he walks or doing any physical activity he gets SOB. He denies chest pain. 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 Pompa. He is accompanied by his who think his symptoms may be related to his Gabapentin dose of 400/300/400mg. He was however on Gabapentin before his back surgery 700mg TID without any symptoms of fatigue and dizziness. Pt also reports that he has noticed swelling of his hands and feet. He has been given Lasix by one of his doctors that he doens't take because it makes him pee too frequently. He average 1 lasix pill per week. There was an incidental finding on his CT Abdo and Pelvis from 08/26 that showed a moderate to large pleural effusion on the right side. He was recently discharged from [facility] for hematuria - they found a large blood clot in his bladder. This may be related to a laminectomy he had on August 10 where he was discharged with a stephenson catheter. He was restarted on his home AC meds for A. Fib. In the ED pt reports passing a small red clot in his urine. It was also noticed that his hemoglobin was 1 point lower than his baseline. Of note in the ER note which I did not corroborate with the patient is: - The patient states that he has had fluid in his lungs in the past, which he had to have removed twice. - The patient was experiencing a mild cough ROS: The patient denies any fever, chest pain, chest pressure, nausea, vomiting , and diarrhea. Echo in 2015: * 1. Normal left ventricular size and systolic function. EF 65-70%. No regional wall motion abnormalities visualized. No left ventricular hypertrophy. * 2. There is moderate to severe tricuspid regurgitation. * 3. No visualized vegetation. * 4. Technically difficult study; enhanced with IV Definity. * 5. No prior study available for comparison. Past Medical/Surgical History Medical Problems: (1) Asthma Status: Chronic (2) Bronchitis Status: Resolved (3) Enlarged prostate Status: Resolved (4) Lymphoma Status: Resolved Family History Cancer (breast) Hyperlipidemia Hypertension Social History Smoking Status: Never Smoker Smokeless Tobacco Use: No Alcohol Use: none Drug Use: none Marital Status: Housing status: lives with significant other Occupational Status: retired Immunizations History of Influenza Vaccine: Yes History of Tetanus Vaccine?: Yes History of Pneumococcal: Yes History of Hepatitis B Vaccine: Unknown Multi-Drug Resistant Organisms History of MDRO: No Allergies Coded Allergies: Pregabalin (Verified Allergy, Severe, shortness of breath, 08/26/16) Codeine (Verified Allergy, Unknown, DROWSY, 08/26/16) Diphenhydramine (Verified Allergy, Unknown, DROWSY, 08/26/16) Home Medications Scheduled Acetaminophen (Tylenol), 650 MG PO AMPM Ascorbic Acid (Ascorbic Acid), 500 MG PO QAM Aspirin (Aspirin Ec), 81 MG PO DAILY Budesonide/Formoterol Fumarate (Symbicort 160/4.5 Inhaler ), 2 PUFFS INH BID Clonazepam (Klonopin), 0.5 MG PO HS Dutasteride-Tamsulosin Hcl (Missy), 1 TAB PO QPM Furosemide (Lasix), 20 MG PO DAILY Gabapentin (Gabapentin), 300 MG PO DAILY Gabapentin (Neurontin), 400 MG PO AMPM Glucosamine-Chondroitin 500MG/400 Mg (Glucosamine-Chondroitin 500 Mg/400 Mg), 1 CAP PO QAM Losartan Potassium (Cozaar), 50 MG PO QPM Lovastatin (Mevacor), 20 MG PO HS Omeprazole (Prilosec), 20 MG PO AMPM Rivaroxaban (Xarelto), 20 MG PO QPM Tiotropium Ryan (Spiriva Respimat), 2 PUFFS INH QAM Scheduled PRN Acetaminophen/Diphenhydramine (Tylenol Pm), 1 TAB PO HS PRN for Sleep Albuterol Hfa (Ventolin Hfa), 2 PUFFS INH Q4 PRN for SOB/Wheezing Benzonatate (Tessalon Perles), 100 MG PO TID PRN for Cough Cetirizine (Zyrtec), 10 MG PO DAILY PRN for ALLERGIES Ipratropium Ryan (Nasal) (Ipratropium Ryan), 1 SPRAY MARIO for Nasal Congestion Oxycodone/Acetaminophen 5MG/325MG (Percocet 5MG/325MG), 1 TABLET PO Q4H PRN for Pain Ranitidine (Zantac), 75 MG PO BID PRN for Dyspepsia Tramadol HCl (Tramadol HCl), 50 MG PO Q6H PRN for Pain Review of Systems Constitutional: No fever, No chills Respiratory: + cough, + shortness of breath, + dyspnea on exertion, No sputum, No wheezing Abdomen: No pain, No nausea, No vomiting, No diarrhea Musculoskeletal: No swelling, No calf pain Genitourinary - Male: + hematuria, + urinary retention, No dysuria, No urinary hesitancy Physical Exam Vital Signs Date Time Temp Pulse Resp B/P (MAP) Pulse Ox O2 Delivery O2 Flow Rate FiO2 09/01/16 22:03 82 18 150/115 92 Room Air 09/01/16 19:51 78 18 122/96 94 Room Air 09/01/16 19:37 122 20 91 Room Air 09/01/16 16:57 36.5 89 22 95/63 92 Room Air General Appearance: WD/WN, no apparent distress Head: normocephalic, atraumatic Eyes: normal inspection, PERRL, EOMI Respiratory/Chest: chest non-tender, + pertinent finding (decreased breath sounds on the right) Cardiovascular: no edema, no gallop, no JVD, no murmur, normal peripheral pulses, + irregularly irregular Abdomen/GI: normal bowel sounds, non tender, soft, no organomegaly, no pulsatile mass, normal rectal exam, occult blood negative Back: normal inspection, no CVA tenderness Extremities/Musculoskelatal: normal inspection, no calf tenderness, + pertinent finding (1+ edema above the sock line bilaterally) Neurologic/Psych: alert, normal mood/affect, normal reflexes, oriented x 3 Skin: no rash Diagnostics Laboratory Results Results Past 24 Hours Test 09/01/16 18:00 Range/Units White Blood Count 7.45 4.8-10.8 K/uL Red Blood Count 3.85 4.7-6.1 M/uL Hemoglobin 9.5 14.0-18.0 g/dL Hematocrit 29.2 42-52 % Mean Corpuscular Volume 75.8 80-100 fL Mean Corpuscular Hemoglobin 24.7 25-34 pg Mean Corpuscular Hemoglobin Concent 32.5 32-36 g/dl Platelet Count 221 130-400 K/uL Mean Platelet Volume 8.8 7.4-10.4 fL Neutrophils (%) (Auto) 61.8 % Lymphocytes (%) (Auto) 13.6 % Monocytes (%) (Auto) 15.2 % Eosinophils (%) (Auto) 8.2 % Basophils (%) (Auto) 0.5 % Neutrophils # (Auto) 4.61 1.4-6.5 K/uL Lymphocytes # (Auto) 1.01 1.2-3.4 K/uL Monocytes # (Auto) 1.13 0.11-0.59 K/uL Eosinophils # (Auto) 0.61 0-0.5 K/uL Basophils # (Auto) 0.04 0-0.2 K/uL RDW Standard Deviation 46.1 36.4-46.3 fL RDW Coefficient of Variation 16.5 11.5-14.5 % Immature Granulocyte % (Auto) 0.7 % Immature Granulocyte # (Auto) 0.05 0.00-0.02 K/uL Prothrombin Time 13.8 9.0-12.0 SECONDS Prothromb Time International Ratio 1.3 0.9-1.1 D-Dimer 1190 0-500 ug/L FEU Sodium Level 137 136-145 mmol/L Potassium Level 4.7 3.5-5.1 mmol/L Chloride Level 103 98-107 mmol/L Carbon Dioxide Level 28 21-32 mmol/L Anion Gap 6.0 3-11 mmol/L Blood Urea Nitrogen 17 7-18 mg/dl Creatinine 1.00 0.60-1.40 mg/dl Est Creatinine Clear Calc Drug Dose 54.7 ml/min Estimated GFR () 78.1 Estimated GFR (Non- 67.4 BUN/Creatinine Ratio 16.7 10-20 Random Glucose 105 70-99 mg/dl Lactic Acid Level 2.5 0.4-2.0 mmol/L Calcium Level 8.5 8.5-10.1 mg/dl Magnesium Level 2.2 1.8-2.4 mg/dl Total Bilirubin 0.3 0.2-1 mg/dl Aspartate Amino Transf (AST/SGOT) 11 15-37 U/L Alanine Aminotransferase (ALT/SGPT) 13 12-78 U/L Alkaline Phosphatase 85 45-117 U/L Troponin I < 0.015 0-0.045 ng/ml Pro-B-Type Natriuretic Peptide 1106 0-1800 pg/ml Total Protein 6.0 6.4-8.2 gm/dl Albumin 2.8 3.4-5.0 gm/dl Globulin 3.2 2.5-4.0 gm/dl Albumin/Globulin Ratio 0.9 0.9-2 Diagnostic Radiology [~ rep ct add3]] CHEST ONE VIEW PORTABLE CLINICAL HISTORY: sob dyspnea COMPARISON STUDY: 08/26/2016 FINDINGS: Right pleural effusion unchanged in the prior exam. Hiatal hernia. Probable consolidative change medial aspect left base unchanged. Persistent prominence of pulmonary vasculature. IMPRESSION: Pulmonary vascular congestion with an unchanging right pleural effusion. No significant change compared to the prior study. (CHEST FOR PE) ANGIO WITH CT DOSE: 549.94 mGycm HISTORY: Chest pain dyspnea TECHNIQUE: Multiaxial CT images of the chest were performed following the intravenous administration of contrast to evaluate the pulmonary arteries. Maximal intensity projection images were also obtained. A dose lowering technique was utilized adhering to the principles of ALARA. COMPARISON STUDY: 06/16/2011 FINDINGS: Right pleural effusion increased in volume from the prior study read large fixed lateral hernia unchanged. Tortuosity and ectasia thoracic aorta unchanged. Pulmonary vasculature enhances uniformly. There are no filling defects. Minimal scattered parenchymal nodularity stable from the prior study. Mild bibasilar atelectatic change. Moderate stable cardiomegaly. IMPRESSION: 1. Study is negative for pulmonary embolus. 2. Right pleural effusion increased in volume from the prior study. 3. Large fixed hiatal hernia unchanged from the prior exam. 4. Mild bibasilar atelectatic change. 5. Stable bilateral parenchymal nodularity. 6. Moderate cardiomegaly. EKG Poor data quality, interpretation may be adversely affected Atrial fibrillation with frequent ventricular-paced complexes and fusion beats Nonspecific ST and T wave abnormality Abnormal ECG When compared with ECG of 07-DEC-2014 08:56, No change Confirmed by Masood Gould ([id number]) on 09/01/2016 7:22:26 PM Impression Assessment and Plan 86M with a PMHx of recent back surgery, A. Fib with pacemaker placement, COPD, CAD s/p LAD stent, BPH, and a recent hospital admission for hematuria p/w SOB and fatigue x 3 days. Trops negative. Will trend. Echo ordered. Neuro- * AAOx3 Radicular Pain: * Tylenol 650 BID scheduled + 650 q4 PRN. * Gabapentin 400mg TID Scheduled * Percocet 1 tab Q4 PRN * Tramadol 50mg PO Q6h PRN * PT and OT on board. CV - New Onset Dyspnea on exertion + Right sided Pleural effusions, infectious vs CHF * BNP = 1100 (normal), Trops negative x 1, elevated Lactic Acid. * During last hospital stay CT Abdo Pelvis showed right sided pleural effusions , worsening on today's CTA. * Will give Lasix 20mg IV BID + 25% Albumin once. * Follow up echocardiogram. * Continue to trend trops * Monitor Is and Os * Daily weights. A- Fib - * continue with Xarelto 20mg QPM CAD * Continue ASA 81mg daily * Continue Lovastatin 20mg QHS HTN * Continue Losartan 50mg QPM Resp - COPD * Continue Spiriva QAM * Continue Symbicort 2puffs BID Renal Hematuria (1 clot in ED) * US Bladder in AM to assess for new clots. * Pt is on Xarelto QPM, hold if hematuria continues. Heme Anemia (microcytic): * Hgb 9.5, Platelets 221 * Baseline Hgb appears to be in the 14-15 range. * MCV is low. * Supplement with Ferrous Sulfate 325mg PO BID. * Consider holding Xarelto QPM if Hgb worsens. DVT Proph: On Xarelto Endo * Blood Sugars well controlled. * Electrolytes: Na+ 137 K+ 4.7 * Follow up Mg2+ Phosphorous * Continue to monitor. GI/Diet * Diet: Heart Healthy * GERD: PPI 40mg PO BID ID - Afebrile, WBC WNL. MSK - PT and OT on board. Full Code Attending Addendum: I have physically seen and examined this patient, have supervised the medical residents activities, and agree with the H&P as noted above with the following exceptions: NONE The patient is awake, alert and oriented 3, normocephalic and atraumatic, lying in bed and in no acute distress. HEENT--PERRL, EOMI, mucous membranes and oropharynx dry. Neck--supple, no JVD or bruits, thyroid normal, trachea midline, no adenopathy. Heart--irregularly irregular, no murmurs, rubs or gallops. Lungs--clear bilaterally but decreased at the bases, no respiratory distress, no accessory muscle use. Abdomen--normal bowel sounds and soft, nontender and nondistended, no hernias or masses, no organomegaly. Extremities--no cyanosis, clubbing or edema. There are good distal pulses b/l. Dermatologic--normal skin turgor, normal color, warm and dry, no abnormal lymph nodes, no rash. Neurologic--cranial nerves II through XII grossly intact. Rheumatologic--normal range of motion for age. Psychiatric--normal affect. Assessment and Plan: 1. CAD/hypertension/atrial fibrillation/dyspnea on exertion/pleural effusion-- The patient will be admitted to telemetry for serial cardiac enzymes, cardiac rhythm monitoring and a 2-D echocardiogram with Dopplers. Start on albumin 25 g IV 1, and Lasix 20 mg IV twice a day. Further treatment based on clinical response. Continue Xarelto 20 mg by mouth daily, aspirin 81 mg by mouth daily and losartan 50 mg by mouth every afternoon. Continue Spiriva every morning and Symbicort 2 puffs twice a day.Duonebs every 4 hours while awake and every 2 hours when necessary. Every 2 hours when necessary. Anemia with hemoglobin 9.5 may be continuing to shortness of breath, look for source and trend serially. Level of Care Telemetry Advanced Directives Existing Advance Directive: Yes Existing Living Will: Yes Existing Power of Statistical Technician: Yes Resuscitation Status FULL RESUSCITATION VTE Prophylaxis VTE Risk Assessment Done? Y/N: Yes Risk Level: Moderate Given or contraindicated: SCD's Resident Involvement: Resident Care Provided Care Provided: Adult Hospital Medicine
[2016-09-02 01:11] LABS: URINE APPEARANCE CLEAR (CLEAR); URINE BILIRUBIN NEG (NEG); URINE COLOR YELLOW; URINE EPITHELIAL CELL AUTO 0-5 /lpf (0-5); URINE NITRITE NEG (NEG); URINE PH 5.5 (4.5-7.5); URINE SPECIFIC GRAVITY 1.018 (1.000-1.030); UROBILINOGEN NEG (NEG); ZZUR CULT IF INDIC CLEAN CATCH NO
[2016-09-02 01:14] LABS: MANUAL MICROSCOPIC REQUIRED? NO; REVIEW REQ? NO
[2016-09-02] MEDS ORDERED: ALBUMIN HUMAN 25% 12.5 GM/50 ML VIAL IV ONE (02:00)
[2016-09-02 02:27] LABS: BLOOD UREA NITROGEN 17 mg/dl (7-18); BUN/CREATININE RATIO 14.1 (10-20); CALCIUM 8.8 mg/dl (8.5-10.1); CARBON DIOXIDE 29 mmol/L (21-32); CHLORIDE 103 mmol/L (98-107); CKMB/CK RATIO 5.7 (0-3.0); GLUCOSE 142 mg/dl (70-99); POTASSIUM 3.9 mmol/L (3.5-5.1); SODIUM 138 mmol/L (136-145)
[2016-09-02 07:45] LABS: HEMATOCRIT 30.3 % (42-52); MEAN CELL VOLUME 75.9 fL (80-100); MEAN CORPUSCULAR HEMOGLOBIN 24.3 pg (25-34); MEAN PLATELET VOLUME 9.1 fL (7.4-10.4); PLATELET COUNT 220 K/uL (130-400); RED BLOOD COUNT 3.99 M/uL (4.7-6.1); WHITE BLOOD COUNT 6.76 K/uL (4.8-10.8)
[2016-09-02 08:09] LABS: MAGNESIUM 2.1 mg/dl (1.8-2.4); PHOSPHORUS 3.7 mg/dl (2.5-4.9)
--- NOTE | 2016-09-02 08:11 | DIAGNOSTIC IMAGING REPORT ---
CHEST ONE VIEW PORTABLE CLINICAL HISTORY: Congestive heart failure. COMPARISON STUDY: Chest radiograph and chest CT September 01, 2016. FINDINGS: A single lead left subclavian pacemaker is in place. Cardiomegaly is unchanged. A hiatal hernia is better depicted on prior chest CT. There is no pneumothorax. A moderate to large right pleural effusion is again noted. Pulmonary edema has slightly progressed. There is a trace left pleural effusion. IMPRESSION: 1. Moderate to large right pleural effusion and small left pleural effusion. Persistent bibasilar opacities, similar to prior exam. 2. Slight increase in pulmonary edema. 3. Stable cardiomegaly. Electronically signed by: Sriram Cates M.D. 09/02/2016 8:10 AM Dictated Date/Time: 09/02/2016 8:08 AM
[2016-09-02] MEDS: FERROUS SULFATE 325 MG TAB PO SCH ×2 (08:32→16:23)
[2016-09-02] MEDS: TIOTROPIUM BROMIDE 5 PUFF/90 MCG INH INH SCH (08:38)
[2016-09-02] MEDS: BUDESONIDE/FORMOTEROL FUMARATE 160/4.5 60 PUFFS/INHALER INH SCH ×2 (08:38→20:33)
[2016-09-02] MEDS: FUROSEMIDE INJ 20 MG in SYRINGE 0 ML IV SCH ×2 (08:40→16:23)
[2016-09-02] MEDS: ACETAMINOPHEN 325 MG TAB PO SCH ×2 (08:41→20:39)
[2016-09-02] MEDS: GABAPENTIN 400 MG CAP PO SCH ×3 (08:43→20:38)
[2016-09-02] MEDS: POTASSIUM CHLORIDE 10 MEQ TABCR PO SCH (08:44)
[2016-09-02] MEDS: ASCORBIC ACID 500 MG TAB PO SCH (08:45)
[2016-09-02] MEDS: ASPIRIN 81 MG ECTAB PO SCH (08:45)
--- NOTE | 2016-09-02 10:44 | Family Medicine Progress Note ---
Progress Note Date of Service Sep 02, 2016. Subjective Pt evaluation today including: conversation w/ patient, conversation w/ family , physical exam, chart review, lab review, review of studies Pain: No pain reported this morning Voiding: no voiding problems, no incontinence Patient is resting comfortably in bed this morning with no acute complaints overnight. The patient states that he instantly felt better in the emergency department even before receiving lasix. He has been having Lasix since undergoing surgery but does not recall his actual dose he has been taking. He also had a clot in his urine in the ED and before that 4 days ago but no clots since admission to the hospital. Constitutional: No fever, No chills Respiratory: + shortness of breath, + dyspnea on exertion, No cough, No sputum, No wheezing Cardiovascular: No chest pain, No palpitations Abdomen: No pain, No nausea, No vomiting, No diarrhea, No constipation Male : + urinary frequency, No dysuria, No incontinence, No hematuria Medications Current Inpatient Medications Medications (Trade) Dose Ordered Sig/Larry Route Start Time Stop Time Status Last Admin Dose Admin Ioversol (Optiray 320) 100 ml UD PRN IV 09/01/16 20:15 09/05/16 20:14 Potassium Chloride (Klor-Con M10) 10 meq QAM PO 09/02/16 09:00 10/02/16 08:59 09/02/16 08:44 10 MEQ Furosemide 20 mg/ Syringe 2 ml @ 4 mls/min BID17 IV 09/02/16 09:00 10/02/16 08:59 09/02/16 08:40 4 MLS/MIN Acetaminophen (Tylenol Tab) 650 mg Q4H PRN PO 09/01/16 23:45 10/01/16 23:44 Al Hydrox/Mg Hydrox/Simethicone (Maalox Max Susp) 15 ml Q4H PRN PO 09/01/16 23:45 10/01/16 23:44 Magnesium Hydroxide (Milk Of Magnesia Susp) 30 ml Q12H PRN PO 09/01/16 23:45 10/01/16 23:44 Ondansetron HCl (Zofran Inj) 4 mg Q6H PRN IV 09/01/16 23:45 10/01/16 23:44 Polyethylene (Miralax Powder Packet) 17 gm DAILY PRN PO 09/01/16 23:45 10/01/16 23:44 Acetaminophen (Tylenol Tab) 650 mg BID PO 09/02/16 09:00 10/02/16 08:59 09/02/16 08:41 650 MG Albuterol (Ventolin Hfa Inhaler) 2 puffs Q4 PRN INH 09/01/16 23:45 10/01/16 23:44 Ascorbic Acid (Vitamin C Tab) 500 mg QAM PO 09/02/16 09:00 10/02/16 08:59 09/02/16 08:45 500 MG Aspirin (Ecotrin Tab) 81 mg DAILY PO 09/02/16 09:00 10/02/16 08:59 09/02/16 08:45 81 MG Benzonatate (Tessalon Perles Cap) 100 mg TID PRN PO 09/01/16 23:45 10/01/16 23:44 Budesonide/ Formoterol Fumarate (Symbicort 160/ 4.5 Inh) 2 puffs BID INH 09/02/16 09:00 10/02/16 08:59 09/02/16 08:38 2 PUFFS Cetirizine HCl (zyrTEC TAB) 10 mg DAILY PRN PO 09/01/16 23:45 10/01/16 23:44 Clonazepam (Klonopin Tab) 0.5 mg HS PO 09/02/16 21:00 10/02/16 20:59 Gabapentin (Neurontin Cap) 400 mg TID PO 09/02/16 09:00 10/02/16 08:59 09/02/16 08:43 400 MG Losartan Potassium (coZAAR TAB) 50 mg QPM PO 09/02/16 21:00 10/02/16 20:59 Lovastatin (Mevacor Tab) 20 mg HS PO 09/02/16 21:00 10/02/16 20:59 Oxycodone/ Acetaminophen (Percocet 5-325mg Tab) 1 tab Q4H PRN PO 09/01/16 23:45 09/15/16 23:44 Ranitidine HCl (zANTac TAB) 75 mg BID PRN PO 09/01/16 23:45 10/01/16 23:44 Rivaroxaban (Xarelto Tab) 20 mg QPM PO 09/02/16 21:00 10/02/16 20:59 Tramadol HCl (Ultram Tab) 50 mg Q6H PRN PO 09/01/16 23:45 10/01/16 23:44 Pantoprazole Sodium (Protonix Tab) 40 mg BID PO 09/03/16 09:00 10/03/16 08:59 Tiotropium [place] (Spiriva Handihaler Inhaler) 1 puff QAM INH 09/02/16 09:00 10/02/16 08:59 09/02/16 08:38 1 PUFF Miscellaneous (Iv Fluids Completed) 1 ea PRN PRN N/A 09/02/16 00:30 09/02/17 00:29 Ferrous Sulfate (Feosol Tab) 325 mg BIDM PO 09/02/16 07:30 10/02/16 07:29 09/02/16 08:32 325 MG Objective Vital Signs Date Time Temp Pulse Resp B/P (MAP) Pulse Ox O2 Delivery O2 Flow Rate FiO2 09/02/16 07:58 36.8 76 18 149/92 (111) 92 Room Air 09/02/16 04:13 37.0 73 22 100/65 (77) 90 Room Air 09/02/16 04:00 94 Room Air 09/02/16 00:45 36.4 82 20 154/88 94 Room Air 09/02/16 00:28 84 18 151/92 93 09/01/16 22:03 82 18 150/115 92 Room Air 09/01/16 19:51 78 18 122/96 94 Room Air 09/01/16 19:37 122 20 91 Room Air 09/01/16 16:57 36.5 89 22 95/63 92 Room Air Physical Exam General Appearance: WD/WN, no apparent distress Eyes: normal inspection, sclerae normal Respiratory/Chest: chest non-tender, + decreased breath sounds Cardiovascular: + irregularly irregular Abdomen: normal bowel sounds, non tender, soft Extremities: + swelling Laboratory Results Results Past 24 Hours Test 09/01/16 18:00 09/02/16 00:50 09/02/16 01:49 09/02/16 07:18 Range/Units White Blood Count 7.45 6.76 4.8-10.8 K/uL Red Blood Count 3.85 3.99 4.7-6.1 M/uL Hemoglobin 9.5 9.7 14.0-18.0 g/dL Hematocrit 29.2 30.3 42-52 % Mean Corpuscular Volume 75.8 75.9 80-100 fL Mean Corpuscular Hemoglobin 24.7 24.3 25-34 pg Mean Corpuscular Hemoglobin Concent 32.5 32.0 32-36 g/dl Platelet Count 221 220 130-400 K/uL Mean Platelet Volume 8.8 9.1 7.4-10.4 fL Neutrophils (%) (Auto) 61.8 % Lymphocytes (%) (Auto) 13.6 % Monocytes (%) (Auto) 15.2 % Eosinophils (%) (Auto) 8.2 % Basophils (%) (Auto) 0.5 % Neutrophils # (Auto) 4.61 1.4-6.5 K/uL Lymphocytes # (Auto) 1.01 1.2-3.4 K/uL Monocytes # (Auto) 1.13 0.11-0.59 K/uL Eosinophils # (Auto) 0.61 0-0.5 K/uL Basophils # (Auto) 0.04 0-0.2 K/uL RDW Standard Deviation 46.1 45.5 36.4-46.3 fL RDW Coefficient of Variation 16.5 16.3 11.5-14.5 % Immature Granulocyte % (Auto) 0.7 % Immature Granulocyte # (Auto) 0.05 0.00-0.02 K/uL Prothrombin Time 13.8 9.0-12.0 SECONDS Prothromb Time International Ratio 1.3 0.9-1.1 D-Dimer 1190 0-500 ug/L FEU Sodium Level 137 138 136-145 mmol/L Potassium Level 4.7 3.9 3.5-5.1 mmol/L Chloride Level 103 103 98-107 mmol/L Carbon Dioxide Level 28 29 21-32 mmol/L Anion Gap 6.0 6.0 3-11 mmol/L Blood Urea Nitrogen 17 17 7-18 mg/dl Creatinine 1.00 1.20 0.60-1.40 mg/dl Est Creatinine Clear Calc Drug Dose 54.7 41.9 ml/min Estimated GFR () 78.1 62.6 Estimated GFR (Non- 67.4 54.0 BUN/Creatinine Ratio 16.7 14.1 10-20 Random Glucose 105 142 70-99 mg/dl Lactic Acid Level 2.5 2.5 0.4-2.0 mmol/L Calcium Level 8.5 8.8 8.5-10.1 mg/dl Magnesium Level 2.2 2.1 1.8-2.4 mg/dl Total Bilirubin 0.3 0.2-1 mg/dl Aspartate Amino Transf (AST/SGOT) 11 15-37 U/L Alanine Aminotransferase (ALT/SGPT) 13 12-78 U/L Alkaline Phosphatase 85 45-117 U/L Troponin I < 0.015 < 0.015 0-0.045 ng/ml Pro-B-Type Natriuretic Peptide 1106 0-1800 pg/ml Total Protein 6.0 6.4-8.2 gm/dl Albumin 2.8 3.4-5.0 gm/dl Globulin 3.2 2.5-4.0 gm/dl Albumin/Globulin Ratio 0.9 0.9-2 Urine Color YELLOW Urine Appearance CLEAR CLEAR Urine pH 5.5 4.5-7.5 Urine Specific [place] 1.018 1.000-1.030 Urine Protein NEG NEG Urine Glucose (UA) NEG NEG Urine Ketones NEG NEG Urine Occult Blood TRACE NEG Urine Nitrite NEG NEG Urine Bilirubin NEG NEG Urine Urobilinogen NEG NEG Urine Leukocyte Esterase NEG NEG Urine WBC (Auto) 0 0-5 /hpf Urine RBC (Auto) 0-4 0-4 /hpf Urine Hyaline Casts (Auto) 0 0-5 /lpf Urine Epithelial Cells (Auto) 0-5 0-5 /lpf Urine Bacteria (Auto) NEG NEG Total Creatine Kinase 37 39-308 U/L Creatine Kinase MB 2.1 0.5-3.6 ng/ml Creatine Kinase MB Ratio 5.7 0-3.0 Phosphorus Level 3.7 2.5-4.9 mg/dl Assessment and Plan Patient is an 86 year old male that presents with a 2 day worsening shortness of breath that appears to secondary to a CHF exacerbation accompanied by questionable home compliance with Lasix. Patient has been started on Lasix 20mg IV BID and is having improved shortness of breath. He has also had occasional blood clots in his urine but denies any gross blood or clots since admission so we will continue to monitor his H/H. 1) CHF Exacerbation - Shortness of breath improve - Echo ordered for today, Last Echo in 2014 showed EF 65-70% with moderate to severe tricuspid regurgitation - CXR: Pulmonary Vascular Congestion with right pleural effusion - CT: Worsening right sided pleural effusion as compared to CT on 08/26 - Albumin 25% - Monitor I/O's --> Net -1000 so far 2) Hematuria - Hemoglobin 9.7 - Trend H/h - Hold Xarelto if continued bleeding - Bladder US to evaluate for new clots --> 1.7cm mobile echogenic focus most likely old clot, much smaller than on previous imaging - Ferrous Sulfate 325mg PO BID 3) Atrial Fibrillation - Xarelto 20mg QPM 4) COPD - Spiriva - Symbicort 5) HTN - Losartan 50mg QPM 6) CAD - Aspirin 81mg - Mevacor 20mg 7) Radicular Pain - Gabapentin 400mg TID - Tylenol 650mg BID scheduled - Percocet 5/325 q4h PRN - Tramadol 50mg PO q6h PRN 8) DVT - Xarelto 9) Code Status - Full Resuscitation Resident Physician Supervision Note: I interviewed and examined the patient. Discussed with Dr. Reyes and agree with findings and plan as documented in the note. Any exceptions or clarifications are listed here: None Documented By: Joseph Dupont feeling better less sob less oneill vitals noted nad breathing unlabored no pallor or icterus acute on chronic diastolic CHF - await repeat echo, suspect due to recent significant physiologic stressors + Na intake + taking lasix less than as directed. improving. discussed secondary prevention. otherwise as above Resident Tracking Resident Involvement: Resident Care Provided Care Provided: Adult Hospital Medicine
[2016-09-02] MEDS ORDERED: HOME MED ADMINISTRATION ONE (10:45)
[2016-09-02 12:19] LABS: CKMB/CK RATIO 6.3 (0-3.0)
--- NOTE | 2016-09-02 12:54 | DIAGNOSTIC IMAGING REPORT ---
BLADDER ULTRASOUND CLINICAL HISTORY: History of blood clots. COMPARISON STUDY: CT of the abdomen and pelvis August 26, 2016. FINDINGS: The right ureteral jet was not identified. The prostate is moderately enlarged. There is irregularity of the bladder wall. Note is made of a 1.7 cm echogenic mobile focus within the dependent aspect of the bladder. This suggests a small amount of clot. The amount of clot has markedly diminished since CT of August 26, 2016. IMPRESSION: 1. 1.7 cm mobile echogenic focus within the dependent aspect of the bladder. While nonspecific, a small residual blood clot is favored. The amount of clot within the bladder has markedly diminished since CT of August 26, 2016. 2. Mild irregular bladder wall thickening. 3. Moderate enlargement of the prostate. Electronically signed by: Sriram Cates M.D. 09/02/2016 12:53 PM Dictated Date/Time: 09/02/2016 12:50 PM
[2016-09-02] MEDS: DUTASTERIDE-TAMSULOSIN HCL 1 CAP CAP PO SCH ×2 (13:08→20:35)
[2016-09-02] MEDS ORDERED: CLONAZEPAM 0.5 MG TAB PO SCH (21:00)
[2016-09-02] MEDS ORDERED: RIVAROXABAN 20 MG TAB PO SCH (21:00)
[2016-09-02] MEDS ORDERED: LOVASTATIN 20 MG TAB PO SCH (21:00)
[2016-09-02] MEDS ORDERED: LOSARTAN POTASSIUM 50 MG TAB PO SCH (21:00)
[2016-09-03] VITALS (9 sets, daily range): BP systolic 98–120; BP diastolic 62–81; PULSE 71–77; TEMP 36.5–36.9; O2SAT 90–95
[2016-09-03 07:20] LABS: CALCIUM 8.6 mg/dl (8.5-10.1); CREATININE 1.1 mg/dl (0.60-1.40); POTASSIUM 4.1 mmol/L (3.5-5.1)
[2016-09-03] MEDS: TIOTROPIUM BROMIDE 5 PUFF/90 MCG INH INH SCH (07:45)
[2016-09-03] MEDS: BUDESONIDE/FORMOTEROL FUMARATE 160/4.5 60 PUFFS/INHALER INH SCH (07:45)
[2016-09-03] MEDS: FERROUS SULFATE 325 MG TAB PO SCH (07:48)
[2016-09-03] MEDS: ASPIRIN 81 MG ECTAB PO SCH (07:49)
[2016-09-03] MEDS: GABAPENTIN 400 MG CAP PO SCH ×2 (07:51→14:00)
[2016-09-03] MEDS: ASCORBIC ACID 500 MG TAB PO SCH (07:51)
[2016-09-03] MEDS: ACETAMINOPHEN 325 MG TAB PO SCH (07:52)
[2016-09-03] MEDS: POTASSIUM CHLORIDE 10 MEQ TABCR PO SCH (07:52)
[2016-09-03] MEDS: FUROSEMIDE INJ 20 MG in SYRINGE 0 ML IV SCH (07:54)
[2016-09-03] MEDS ORDERED: PANTOprazole SOD 40 MG TAB PO SCH (09:00)
[2016-09-03] MEDS ORDERED: FURO-85 PO (14:30)
--- NOTE | 2016-09-03 14:52 | Discharge Instructions ---
Discharge Instructions Date of Service Sep 03, 2016. Admission Reason for Admission: Pulmonary Adema Discharge Discharge Diagnosis / Problem: mild acute diastolic CHF ("fluid traffic jam") Discharge Goals Goal(s): Diagnostic testing, Therapeutic intervention Activity Recommendations Activity Limitations: resume your previous activity . Instructions / Follow-Up Instructions / Follow-Up congestive heart failure -we all hate this term when it relates to someone like you - - "congestive heart failure" sounds so ominous, almost "circling the drain" bad -- but with you it's really that the left ventricle is a little stiff (mostly from having a heart that's been around almost 9 decades) and your valves are a bit leaky ( nothing terrible, but it contributes) -from there, the physiologic stress you were under (combined with some sodium induced fluid retention) led to your left ventricle "being asked" to fill with more fluid than it was able to handle -- when the left ventricle backs up, blood overfills the left atrium. when the left atrium overfills, blood backs up into the lungs - creating the pulmonary edema/CHF picture we're seeing ---you're improving, but not back to "good as new" -- it appears there's still more fluid to take off, but you're definitely doing well enough to get out of the hospital -we'll have you on 20mg of lasix (furosemide) daily for the next several days ; after that Dr Mae will see how "dry" you appear and be able to determine if you should stay on the 20mg daily, if you need a little bit of an increase, or if it's time to back down on the diuretics further ---once you're at a dry weight, you'll want to follow the following guidelines to keep yourself from getting flooded again: -weigh yourself daily -- if you gain weight (more than 2lbs in a day) assume it to be fluid and you'll want to double the "baseline" amount of lasix you're taking -if you see more swelling in your legs, you'll want to double the lasix as well -if you see above with more shortness of breath you'll want to double the lasix as well as call dr mae for if you might need to be seen -protecting yourself from getting too dry will entail following labs - typically your labs will show a rise in creatinine long before you would start to feel symptoms. first we'll want you to get labs (BMP) done sunday morning before seeing Dr Mae. depending on how you're doing and what your labs show, he'll then be able to guide you further on ongoing lasix dosing and the interval of lab testing Call your Primary Care doctor if any of the following symptoms or problems start or get worse: * Shortness of breath or difficulty breathing * Wake up at night short of breath * Chest pain * Cough * Swelling of your hands, feet, or legs * More fatigued or tired with your normal activity * Palpitations - sudden fast heart beats WEIGHT * Weigh yourself every morning after using the bathroom. * Use the same scale. * Wear the same amount of clothing. * Write your weight down on a chart. * Call your Primary Care doctor if you gain more than 2-3 pounds in 1-2 days. MEDICATIONS * Use this discharge instruction sheet for medication instructions. * Take your medications at the time your doctor ordered. * Do not skip a dose of your medicines. * If you miss a dose of medicine, take it as soon as possible, but DO NOT DOUBLE A DOSE. * Read your medicine information when you get home. * Know all of the side effects of your medicine. If in doubt, ask your pharmacist * Call your Primary Care doctor's office if you have any side effects. * Be sure all of your doctors know what medicine and herbs you take (including cold, flu, and herbal medicine). Take the following with you to your follow-up doctor appointments: * Weight Chart * Medication List * List of questions Do not drink excessive alcohol, beer or wine. Current Hospital Diet Patient's current hospital diet: AHA Diet (Heart Healthy) Discharge Diet Recommended Diet: Low Sodium Diet (2gm Na) Pending Studies Studies pending at discharge: no Medical Emergencies . Who to Call and When: Call 911 or go to the Emergency Room if: * If at any time you feel your situation is an emergency * You have tightness or pain in your chest that does not go away with rest or Nitroglycerin * You are very short of breath even with rest . Non-Emergent Contact Non-Emergency issues call your: Primary Care Provider . . "Provider Documentation" section prepared by Joseph Dupont. . VTE Core Measure Inpt VTE Proph given/why not?: Other Anticoagulation
--- NOTE | 2016-09-03 17:01 | Discharge Summary ---
Discharge Summary Date of Service Sep 03, 2016. Discharge Summary Admission Date: Sep 02, 2016 at 00:10 Discharge Date: Sep 03, 2016 Discharge Disposition: Home Principal Diagnosis: acute on chronic diastolic CHF Procedures: echo from may reviewed, diastolic dysfunction, mild AR, MR, mod TR Last 24 Hours Test 09/03/16 06:24 Sodium Level 137 mmol/L Potassium Level 4.1 mmol/L Chloride Level 104 mmol/L Carbon Dioxide Level 29 mmol/L Anion Gap 4.0 mmol/L Blood Urea Nitrogen 18 mg/dl Creatinine 1.10 mg/dl Est Creatinine Clear Calc Drug Dose 45.8 ml/min Estimated GFR () 69.6 Estimated GFR (Non- 60.0 BUN/Creatinine Ratio 16.0 Random Glucose 106 mg/dl Calcium Level 8.6 mg/dl BLADDER ULTRASOUND CLINICAL HISTORY: History of blood clots. COMPARISON STUDY: CT of the abdomen and pelvis August 26, 2016. FINDINGS: The right ureteral jet was not identified. The prostate is moderately enlarged. There is irregularity of the bladder wall. Note is made of a 1.7 cm echogenic mobile focus within the dependent aspect of the bladder. This suggests a small amount of clot. The amount of clot has markedly diminished since CT of August 26, 2016. IMPRESSION: 1. 1.7 cm mobile echogenic focus within the dependent aspect of the bladder. While nonspecific, a small residual blood clot is favored. The amount of clot within the bladder has markedly diminished since CT of August 26, 2016. 2. Mild irregular bladder wall thickening. 3. Moderate enlargement of the prostate. Electronically signed by: Sriram Cates M.D. 09/02/2016 12:53 PM Dictated Date/Time: 09/02/2016 12:50 PM CHEST ONE VIEW PORTABLE CLINICAL HISTORY: Congestive heart failure. COMPARISON STUDY: Chest radiograph and chest CT September 01, 2016. FINDINGS: A single lead left subclavian pacemaker is in place. Cardiomegaly is unchanged. A hiatal hernia is better depicted on prior chest CT. There is no pneumothorax. A moderate to large right pleural effusion is again noted. Pulmonary edema has slightly progressed. There is a trace left pleural effusion. IMPRESSION: 1. Moderate to large right pleural effusion and small left pleural effusion. Persistent bibasilar opacities, similar to prior exam. 2. Slight increase in pulmonary edema. 3. Stable cardiomegaly. Electronically signed by: Sriram Cates M.D. (CHEST FOR PE) ANGIO WITH CT DOSE: 549.94 mGycm HISTORY: Chest pain dyspnea TECHNIQUE: Multiaxial CT images of the chest were performed following the intravenous administration of contrast to evaluate the pulmonary arteries. Maximal intensity projection images were also obtained. A dose lowering technique was utilized adhering to the principles of ALARA. COMPARISON STUDY: 06/16/2011 FINDINGS: Right pleural effusion increased in volume from the prior study read large fixed lateral hernia unchanged. Tortuosity and ectasia thoracic aorta unchanged. Pulmonary vasculature enhances uniformly. There are no filling defects. Minimal scattered parenchymal nodularity stable from the prior study. Mild bibasilar atelectatic change. Moderate stable cardiomegaly. IMPRESSION: 1. Study is negative for pulmonary embolus. 2. Right pleural effusion increased in volume from the prior study. 3. Large fixed hiatal hernia unchanged from the prior exam. 4. Mild bibasilar atelectatic change. 5. Stable bilateral parenchymal nodularity. 6. Moderate cardiomegaly. The above report was generated using voice recognition software. It may contain grammatical, syntax or spelling errors. Electronically signed by: Duc Fleming M.D. 09/01/2016 9:34 PM Dictated Date/Time: 09/01/2016 9:30 PM CHEST ONE VIEW PORTABLE CLINICAL HISTORY: sob dyspnea COMPARISON STUDY: 08/26/2016 FINDINGS: Right pleural effusion unchanged in the prior exam. Hiatal hernia. Probable consolidative change medial aspect left base unchanged. Persistent prominence of pulmonary vasculature. IMPRESSION: Pulmonary vascular congestion with an unchanging right pleural effusion. No significant change compared to the prior study. The above report was generated using voice recognition software. It may contain grammatical, syntax or spelling errors. Electronically signed by: Duc Fleming M.D. 09/01/2016 6:15 PM Medication Reconciliation Changed Medications: Furosemide (Lasix) 20 Mg Tab 20 MG PO DAILY, #30 TAB (Changed from: 10-20 MG; Removed Reason) take daily scheduled until seeing Dr Mae this week, then as directed Continued Medications: Acetaminophen (Tylenol) 325 Mg Tab 650 MG PO AMPM Acetaminophen/Diphenhydramine (Tylenol Pm) 500 Mg/25 Mg Tab 1 TAB PO HS PRN for Sleep FOR MINOR PAIN AND SLEEP. Albuterol Hfa (Ventolin Hfa) 200 Puffs/19995 Mcg Aers 2 PUFFS INH Q4 PRN for SOB/Wheezing Ascorbic Acid (Ascorbic Acid) 500 Mg Tab 500 MG PO QAM Aspirin (Aspirin Ec) 81 Mg Tab 81 MG PO DAILY Benzonatate (Tessalon Perles) 100 Mg Cap 100 MG PO TID PRN for Cough Budesonide/Formoterol Fumarate (Symbicort 160/4.5 Inhaler ) Aero 2 PUFFS INH BID, INHALER Cetirizine (Zyrtec) 10 Mg Tab 10 MG PO DAILY PRN for ALLERGIES Clonazepam (Klonopin) 0.5 Mg Tab 0.5 MG PO HS Dutasteride-Tamsulosin Hcl (Missy) 1 Cap Cap 1 TAB PO QPM Gabapentin (Gabapentin) 300 Mg Cap 300 MG PO DAILY MID DAY DOSE* Gabapentin (Neurontin) 400 Mg Cap 400 MG PO AMPM Glucosamine-Chondroitin 500MG/400 Mg (Glucosamine-Chondroitin 500 Mg/400 Mg) 1 Cap Cap 1 CAP PO QAM Ipratropium [place] (Nasal) (Ipratropium [place]) 0.06 % Spr 1 SPRAY MARIO PRN for Nasal Congestion Losartan Potassium (Cozaar) 50 Mg Tab 50 MG PO QPM Lovastatin (Mevacor) 20 Mg Tab 20 MG PO HS, TAB Omeprazole (Prilosec) 20 Mg Capcr 20 MG PO AMPM Oxycodone/Acetaminophen 5MG/325MG (Percocet 5MG/325MG) Tab 1 TABLET PO Q4H PRN for Pain PAIN Ranitidine (Zantac) 150 Mg Tab 75 MG PO BID PRN for Dyspepsia Rivaroxaban (Xarelto) 20 Mg Tab 20 MG PO QPM Tiotropium [place] (Spiriva Respimat) 2.5 Mcg/Act Spr 2 PUFFS INH QAM Tramadol HCl (Tramadol HCl) 50 Mg Tab 50 MG PO Q6H PRN for Pain Discharge Exam Physical Exam: General Appearance: no apparent distress Eyes: EOMI Neck: trachea midline Respiratory/Chest: no respiratory distress, no accessory muscle use Extremities: normal inspection Neurologic/Psychiatric: 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 Patient had been started on Lasix 20mg IV BID and is having improved shortness of breath. He has also had occasional blood clots in his urine but denies any gross blood or clots since admission so we will continue to monitor his H/H. 1) CHF Exacerbation (acute on chronic diastolic, likely partly from not taking much lasix, and partly from a bit too much sodium) - Shortness of breath improved to where he's safe to go home - still some RODGERS, but examines fairly euvolemic - CXR: Pulmonary Vascular Congestion with right pleural effusion - CT: Worsening right sided pleural effusion as compared to CT on 08/26 but seems symptomatically improved and doubt effusion will need to be drained - improved w IV lasix - -> stable for home -for now 20mg lasix PO daily scheduled, gave basic parameters on triggers for additional lasix. not yet clear what his "base" dosing will need to be -- would expect this to be more clear by the end of the week after lasix 20mg daily and BMP sunday -f/u PCP sunday 2) Hematuria - Hemoglobin 9.7 - Bladder US to evaluate for new clots --> 1.7cm mobile echogenic focus most likely old clot, much smaller than on previous imaging - Ferrous Sulfate 325mg PO BID - stable for home 3) Atrial Fibrillation - Xarelto 20mg QPM 4) COPD - Spiriva - Symbicort 5) HTN - Losartan 50mg QPM 6) CAD - Aspirin 81mg - Mevacor 20mg 7) Radicular Pain - Gabapentin 400mg TID - Tylenol 650mg BID scheduled - Percocet 5/325 q4h PRN - Tramadol 50mg PO q6h PRN 8) DVT - Xarelto 9) Code Status - Full Resuscitation dc home, PCP this week Total Time Spent: Less than 30 minutes This includes examination of the patient, discharge planning, medication reconciliation, and communication with other providers. Discharge Instructions Please refer to the electronic Patient Visit Report (Discharge Instructions) for additional information. Additional Copies To Jonathan Mae M.D.
[2016-10-02] MEDS ORDERED: XRL10 PO (09:55)
[2016-10-02] MEDS ORDERED: FURO-85 PO (09:55)
[2016-10-02] MEDS ORDERED: CALC625T13 PO (09:58)
[2016-10-02] MEDS ORDERED: GABA-112 PO (09:58)
[2016-10-02] MEDS ORDERED: [UNRECOGNIZED DRUG - OTHER] PEG (09:58)
== END 2016-09-03 16:20 | disposition home or self-care (01) ==
LOC: C.EDB 16:52 → C.2T 09-02 00:10 → ENRESERV 09-02 00:18
PROVIDERS: ADMIT Hospitalist; ATTEND Student in an Organized Health Care Education/Training Program
DX: I50.33 Acute on chronic diastolic (congestive) heart failure (principal); R31.9 Hematuria, unspecified; R06.02 Shortness of breath; J90 Pleural effusion, not elsewhere classified; D64.9 Anemia, unspecified; J44.9 Chronic obstructive pulmonary disease, unspecified; N40.0 Benign prostatic hyperplasia without lower urinary tract symptoms; Z83.3 Family history of diabetes mellitus; Z82.49 Family history of ischemic heart disease and other diseases of the circulatory system; Z79.82 Long term (current) use of aspirin; I48.91 Unspecified atrial fibrillation; Z95.0 Presence of cardiac pacemaker; Z87.891 Personal history of nicotine dependence; Z95.818 Presence of other cardiac implants and grafts; I25.10 Atherosclerotic heart disease of native coronary artery without angina pectoris; I10 Essential (primary) hypertension

== ENCOUNTER → 2016-09-06 | Outpatient (CLI) | payer BC ==
[~2016-09-06] MED LIST changes: +ACET-1311 PO; -ALBU18002 INH; -ASPCH81X PO; +ASPI81TA28 PO; +BENZ100C84 PO; +CALC625T13 PO; +CETI10TA84 PO; +DIPH-437 PO; +GABA-112 PO; +GABA1CAP5 PO; +OXYC-57 PO; +VNTHFA/IN INH; +XRL10 PO; +[UNRECOGNIZED DRUG - OTHER] PEG
[2016-09-06 16:23] LABS: BLOOD UREA NITROGEN 24 mg/dl (7-18); BUN/CREATININE RATIO 21.8 (10-20); CALCIUM 8.8 mg/dl (8.5-10.1); CARBON DIOXIDE 28 mmol/L (21-32); CHLORIDE 104 mmol/L (98-107); GLUCOSE 101 mg/dl (70-99); POTASSIUM 4.4 mmol/L (3.5-5.1); SODIUM 138 mmol/L (136-145)
== END | disposition home or self-care (01) ==
LOC: C.LAB1850 14:14
PROVIDERS: ATTEND Family Medicine
DX: I50.9 Heart failure, unspecified (principal)

== ENCOUNTER → 2016-09-11 | Outpatient (CLI) | payer BC ==
--- NOTE | 2016-09-11 11:16 | DIAGNOSTIC IMAGING REPORT ---
CHEST 2 VIEWS ROUTINE CLINICAL HISTORY: I50.32 Chronic diastolic congestive heart failure COMPARISON STUDY: 09/02/2016 FINDINGS: The heart is enlarged. There is a left subclavian central venous pacemaker. There is a retrocardiac opacity containing air consistent with a large hiatal hernia. There is a moderate right pleural effusion and trace left pleural effusion. There is mild congestive failure.[ IMPRESSION: 1. Persistent congestive failure with mild interstitial edema 2. Large hiatal hernia 3. Moderate right pleural effusion and trace left pleural effusion Electronically signed by: Dano Wheeler M.D. 09/11/2016 11:15 AM Dictated Date/Time: 09/11/2016 11:13 AM
[2016-09-11 12:07] LABS: MEAN CELL VOLUME 76.8 fL (80-100); MEAN CORPUSCULAR HEMOGLOBIN 23.5 pg (25-34); MEAN CORPUSCULAR HGB CONC 30.6 g/dl (32-36); MEAN PLATELET VOLUME 9.7 fL (7.4-10.4); PLATELET COUNT 225 K/uL (130-400); RED BLOOD COUNT 4.69 M/uL (4.7-6.1); WHITE BLOOD COUNT 9.23 K/uL (4.8-10.8)
[2016-09-11 12:18] LABS: BLOOD UREA NITROGEN 26 mg/dl (7-18); BUN/CREATININE RATIO 20.2 (10-20); CALCIUM 9.1 mg/dl (8.5-10.1); CARBON DIOXIDE 26 mmol/L (21-32); CHLORIDE 101 mmol/L (98-107); GLUCOSE 118 mg/dl (70-99); POTASSIUM 3.9 mmol/L (3.5-5.1); SODIUM 135 mmol/L (136-145)
== END | disposition home or self-care (01) ==
LOC: C.RAD1850 10:24
PROVIDERS: ATTEND Internal Medicine
DX: I50.32 Chronic diastolic (congestive) heart failure (principal); K44.9 Diaphragmatic hernia without obstruction or gangrene; J90 Pleural effusion, not elsewhere classified

== ENCOUNTER 2016-09-21 09:25 | Day surgery (SDC) | payer BC ==
[~2016-09-21] VITALS: Ht 172.7 cm; Wt 78.2 kg
[~2016-09-21 09:25] MED LIST changes: -CALC625T13 PO; -GABA-112 PO; -XRL10 PO; -[UNRECOGNIZED DRUG - OTHER] PEG
[2016-09-21 10:00] VITALS: BP 136/78; PULSE 77; TEMP 37; O2SAT 97; Ht 172.7 cm; Wt 78.2 kg
--- NOTE | 2016-09-21 10:00 | History and Physical ---
History & Physical Date Sep 21, 2016. Chief Complaint Dyspnea with right-sided pleural effusion History of Present Illness The patient is a 86 year old male with complaints of right-sided pleural effusion: 86-year-old gentleman recently admitted to the [facility] from September 02 through September 03, 2016 for acute on chronic diastolic heart failure. Echocardiogram during his admission showed diastolic heart dysfunction along with mild AR, MR and moderate TR. Here for follow-up on right- sided pleural effusion. CT of the abdomen and pelvis 08/27/2016: Chest x-ray 09/02/2016: Large right-sided pleural effusion and small left- sided pleural effusion Chest x-ray 08/26/2016: Right-sided pleural effusion CTA chest 06/16/2011: Bibasal atelectasis Past Medical/Surgical History Medical Problems: (1) Asthma (2) Bronchitis (3) Enlarged prostate (4) Hematuria (5) Lymphoma (6) Pulmonary edema Additional History Hepatic Disease: No Endocrine Disorder: Yes Kidney Disease: No Hypertension: Yes Heart Disease: Yes Bleeding Tendencies: Yes Infectious Diseases: No Allergies Coded Allergies: Pregabalin (Verified Allergy, Severe, shortness of breath, 08/26/16) Codeine (Verified Allergy, Unknown, DROWSY, 08/26/16) Diphenhydramine (Verified Allergy, Unknown, DROWSY, 08/26/16) Home Medications Scheduled Acetaminophen (Tylenol), 650 MG PO AMPM Ascorbic Acid (Ascorbic Acid), 500 MG PO QAM Aspirin (Aspirin Ec), 81 MG PO DAILY Budesonide/Formoterol Fumarate (Symbicort 160/4.5 Inhaler ), 2 PUFFS INH BID Clonazepam (Klonopin), 0.5 MG PO HS Dutasteride-Tamsulosin Hcl (Missy), 1 TAB PO QPM Furosemide (Lasix), 20 MG PO DAILY Gabapentin (Gabapentin), 300 MG PO DAILY Gabapentin (Neurontin), 400 MG PO AMPM Glucosamine-Chondroitin 500MG/400 Mg (Glucosamine-Chondroitin 500 Mg/400 Mg), 1 CAP PO QAM Losartan Potassium (Cozaar), 50 MG PO QPM Lovastatin (Mevacor), 20 MG PO HS Omeprazole (Prilosec), 20 MG PO AMPM Rivaroxaban (Xarelto), 20 MG PO QPM Tiotropium [place] (Spiriva Respimat), 2 PUFFS INH QAM Scheduled PRN Acetaminophen/Diphenhydramine (Tylenol Pm), 1 TAB PO HS PRN for Sleep Albuterol Hfa (Ventolin Hfa), 2 PUFFS INH Q4 PRN for SOB/Wheezing Benzonatate (Tessalon Perles), 100 MG PO TID PRN for Cough Cetirizine (Zyrtec), 10 MG PO DAILY PRN for ALLERGIES Ipratropium [place] (Nasal) (Ipratropium [place]), 1 SPRAY MARIO for Nasal Congestion Oxycodone/Acetaminophen 5MG/325MG (Percocet 5MG/325MG), 1 TABLET PO Q4H PRN for Pain Ranitidine (Zantac), 75 MG PO BID PRN for Dyspepsia Tramadol HCl (Tramadol HCl), 50 MG PO Q6H PRN for Pain Physical Examination Skin: warm/dry, no rash Eyes: normal inspection, EOMI, sclerae normal ENT: normal ENT inspection, pharynx normal Head: normocephalic, atraumatic Neck: supple, no adenopathy, trachea midline Respiratory/Chest: + pertinent finding (decreased breath sounds with dullness to percussion right hemithorax) Cardiovascular: regular rate, rhythm, no edema, no murmur Abdomen / GI: normal bowel sounds, non tender Back: normal inspection Extremities: normal inspection, normal range of motion Neurologic/Psych: no motor/sensory deficits, alert, normal reflexes, oriented x 3 Diagnosis Chronic right pleural effusion ASA Classification: ASA Class III Plan of Treatment Right-sided thoracentesis
--- NOTE | 2016-09-21 10:00 | History & Physical Bridge Note ---
H&P Re-Evaluation Bridge Note: I have examined the patient, reviewed the History & Physical and in the interval since the performance of the History & Physical I have noted the following changes of clinical significance: No changes noted
[2016-09-21 10:24] LABS: INR 1.1 (0.9-1.1); PROTHROMBIN TIME (PATIENT) 11.5 SECONDS (9.0-12.0)
[2016-09-21 11:50] VITALS: BP 129/82; PULSE 79; TEMP 36.4; O2SAT 97
--- NOTE | 2016-09-21 12:04 | Procedure Note ---
Procedure Note Date of Service Sep 21, 2016. Procedure Note Procedures: Right sided Thoracentesis Consent: obtained via the patient and placed into the chart Pre-Procedural Dx: Chronic loculated pleural effusion Post-Procedural Dx: Chronic pleural effusion Analgesia: 8cc of 1% Liquid Lidocaine Procedure: The patient was placed in an upright position and thoracic US was used to select a spot for the procedure. A spot along the posterior axillary line was marked in the 8th intercostal space. The patient was then draped and prepped in a sterile fashion. A modified Seldinger technique was then used for catheter placement. During introduction of the lidocaine needle as well as the thoracentesis catheter there was resistance at the parietal pleura possibly suggesting scar tissue/adhesions. Flowing this approximately 1400cc of serosanguineous pleural fluid was removed. The patient was then cleaned and placed at a 60 degree angle in the bed were the US was used to evaluate for possible pneumothorax. The US showed good lung sliding and [place] signs. EBL: None Complications: Difficult and tree into the pleural cavity is the parietal pleura was notably thickened.
[2016-09-21 12:10] VITALS: BP 134/86; PULSE 70; TEMP 36.4; O2SAT 98
[2016-09-21 12:35] VITALS: BP 135/83; PULSE 75; TEMP 36.4; O2SAT 99
[2016-09-21 12:40] LABS: PLEURAL FLUID APPEARANCE TURBID; PLEURAL FLUID COLOR RED; PLEURAL FLUID MONONUC RELAT 89.4 %; PLEURAL FLUID POLYNUC 10.6 %; PLEURAL FLUID SOURCE RIGHT LUNG; PLEURAL FLUID TOTAL PROTEIN 3.3 g/dl; PLEURAL FLUID WBC (A) 256 /uL
--- NOTE | 2016-09-21 12:46 | DIAGNOSTIC IMAGING REPORT ---
CHEST ONE VIEW PORTABLE CLINICAL HISTORY: S/P Thoracentesis pleural effusion COMPARISON STUDY: 09/11/2016 FINDINGS: No evidence pneumothorax status post right thoracentesis. Unchanging fixed hiatal hernia. Permanent unipolar cardiac pacemaker. IMPRESSION: No evidence pneumothorax postthoracentesis. The above report was generated using voice recognition software. It may contain grammatical, syntax or spelling errors. Electronically signed by: Duc Fleming M.D. 09/21/2016 12:45 PM Dictated Date/Time: 09/21/2016 12:44 PM
--- NOTE | 2016-09-21 12:50 | Discharge Instructions ---
Discharge Instructions Date of Service Sep 21, 2016. Admission Reason for Admission: Pleural Effusion Discharge Discharge Diagnosis / Problem: Right-sided pleural effusion Discharge Goals Goal(s): Improve function, Diagnostic testing Activity Recommendations Activity Limitations: resume your previous activity . Instructions / Follow-Up Instructions / Follow-Up Follow-up on the [facility] Pulmonary office. Please call Dr. Durand office on 09/22/2016 to let him know how you doing Current Hospital Diet Patient's current hospital diet: Discharge Diet Recommended Diet: Regular Diet Procedures Procedures Performed: Right-sided thoracentesis ultrasound-guided with approximately 1.3 liters of fluid removed Pending Studies Studies pending at discharge: no Medical Emergencies . Who to Call and When: Medical Emergencies: If at any time you feel your situation is an emergency, please call 911 immediately. . Non-Emergent Contact Non-Emergency issues call your: Physical Education Aide . . "Provider Documentation" section prepared by Foster Durand. . VTE Core Measure Inpt VTE Proph given/why not?: Other Anticoagulation (Please restart your Xarelto)
[2016-09-21 13:10] VITALS: BP 135/72; PULSE 75; TEMP 36.7; O2SAT 99
[2016-10-02] MEDS ORDERED: XRL10 PO (09:55)
[2016-10-02] MEDS ORDERED: FURO-85 PO (09:55)
[2016-10-02] MEDS ORDERED: GABA-112 PO (09:58)
[2016-10-02] MEDS ORDERED: CALC625T13 PO (09:58)
[2016-10-02] MEDS ORDERED: [UNRECOGNIZED DRUG - OTHER] PEG (09:58)
== END 2016-09-21 13:20 | disposition home or self-care (01) ==
LOC: C.ACU 09:25
PROVIDERS: ATTEND Internal Medicine Critical Care Medicine
DX: J90 Pleural effusion, not elsewhere classified (principal); Z79.82 Long term (current) use of aspirin; Z79.01 Long term (current) use of anticoagulants

== ENCOUNTER → 2016-09-26 | Outpatient (CLI) | payer BC ==
[~2016-09-26] MED LIST changes: +CALC625T13 PO; +GABA-112 PO; +XRL10 PO; +[UNRECOGNIZED DRUG - OTHER] PEG
[2016-09-26 14:26] LABS: HEMATOCRIT 32.4 % (42-52); MEAN CELL VOLUME 74.7 fL (80-100); MEAN CORPUSCULAR HEMOGLOBIN 23.5 pg (25-34); MEAN CORPUSCULAR HGB CONC 31.5 g/dl (32-36); MEAN PLATELET VOLUME 9.3 fL (7.4-10.4); PLATELET COUNT 191 K/uL (130-400); RED BLOOD COUNT 4.34 M/uL (4.7-6.1); WHITE BLOOD COUNT 6.83 K/uL (4.8-10.8)
[2016-09-26 14:30] LABS: ESTIMATED AVERAGE GLUCOSE 134 mg/dl; HA1C FLAG Normal (Normal)
[2016-09-26 14:33] LABS: BLOOD UREA NITROGEN 23 mg/dl (7-18); BUN/CREATININE RATIO 19.2 (10-20); CALCIUM 8.2 mg/dl (8.5-10.1); CARBON DIOXIDE 26 mmol/L (21-32); CHLORIDE 107 mmol/L (98-107); GLUCOSE 104 mg/dl (70-99); POTASSIUM 4.7 mmol/L (3.5-5.1); SODIUM 140 mmol/L (136-145)
== END | disposition home or self-care (01) ==
LOC: C.LAB1850 13:17
PROVIDERS: ATTEND Internal Medicine
DX: I48.2 Chronic atrial fibrillation (principal); Z86.39 Personal history of other endocrine, nutritional and metabolic disease

== ENCOUNTER → 2016-10-02 | Outpatient (CLI) | payer BC, OTHER ==
[~2016-10-02] VITALS: Ht 172.7 cm; Wt 79.7 kg
[~2016-10-02] MED LIST changes: +CIPROFLOXACIN / D5W 400 MG IV SCH; +LACTATED RINGER'S 1000ML 1,000 ML IV SCH; -[UNRECOGNIZED DRUG - OTHER] PEG; +[UNRECOGNIZED DRUG - OTHER] TOP
[2016-10-02 10:03] VITALS: Ht 172.7 cm; Wt 79.7 kg
--- NOTE | 2016-10-02 10:46 | PAT Medication Instructions ---
Service Date Oct 02, 2016. Current Home Medication List Acetaminophen (Tylenol), 650 MG PO PRN Acetaminophen/Diphenhydramine (Tylenol Pm), 1 TAB PO HS PRN for Sleep Albuterol Hfa (Ventolin Hfa), 2 PUFFS INH Q4 PRN for SOB/Wheezing Ascorbic Acid (Ascorbic Acid), 500 MG PO QAM Aspirin (Aspirin Ec), 81 MG PO QAM Benzonatate (Tessalon Perles), 100 MG PO TID PRN for Cough Budesonide/Formoterol Fumarate (Symbicort 160/4.5 Inhaler ), 2 PUFFS INH BID Calcium Polycarbophil (Fiber Tabs), 1 TAB PO BID Cetirizine (Zyrtec), 10 MG PO DAILY PRN for ALLERGIES Clonazepam (Klonopin), 0.5 MG PO HS Dutasteride-Tamsulosin Hcl (Missy), 1 TAB PO QPM Furosemide (Lasix), 10-20 MG PO PRN Gabapentin (Neurontin), 100 MG PO BID Glucosamine-Chondroitin 500MG/400 Mg (Glucosamine-Chondroitin 500 Mg/400 Mg), 1 CAP PO BID Ipratropium [place] (Nasal) (Ipratropium [place]), 1 SPRAY MARIO for Nasal Congestion Losartan Potassium (Cozaar), 25 MG PO HS Lovastatin (Mevacor), 20 MG PO HS Omeprazole (Prilosec), 20 MG PO AMPM Ranitidine (Zantac), 75 MG PO BID PRN for Dyspepsia Rivaroxaban (Xarelto), 15 TAB PO HS Tiotropium [place] (Spiriva Respimat), 2 PUFFS INH QAM [Perioprotect Gel], 1 DOSE PEG HS Medication Instructions For Your Scheduled Surgery - Hold the following medication for 2 weeks prior to surgery: Glucosamine-Chondroitin 500MG/400 Mg (Glucosamine-Chondroitin 500 Mg/400 Mg), 1 CAP PO BID Hold the following medications 48 hours prior to surgery (per cardio instructions): Rivaroxaban (Xarelto), 15 TAB PO HS - Hold the following medications 24 hours prior to surgery: [Perioprotect Gel], 1 DOSE PO HS - Hold the following medications the morning of surgery: Furosemide (Lasix), 10-20 MG PO PRN Calcium Polycarbophil (Fiber Tabs), 1 TAB PO BID Cetirizine (Zyrtec), 10 MG PO DAILY PRN for ALLERGIES Ascorbic Acid (Ascorbic Acid), 500 MG PO QAM - Take the following medications the morning of surgery with a sip of water: Aspirin (Aspirin Ec), 81 MG PO QAM Ranitidine (Zantac), 75 MG PO BID PRN for Dyspepsia Gabapentin (Neurontin), 100 MG PO BID Budesonide/Formoterol Fumarate (Symbicort 160/4.5 Inhaler ), 2 PUFFS INH BID Albuterol Hfa (Ventolin Hfa), 2 PUFFS INH Q4 PRN for SOB/Wheezing (BRING WITH YOU THE MORNING OF SURGERY) Omeprazole (Prilosec), 20 MG PO AM/PM Benzonatate (Tessalon Perles), 100 MG PO TID PRN for Cough Acetaminophen (Tylenol), 650 MG PO PRN (if needed for pain up to 4 hours prior to surgery) Tiotropium [place] (Spiriva Respimat), 2 PUFFS INH QAM Ipratropium [place] (Nasal) (Ipratropium [place]), 1 SPRAY MARIO for Nasal Congestion - Take the following medications as scheduled the night before surgery: Losartan Potassium (Cozaar), 25 MG PO HS Lovastatin (Mevacor), 20 MG PO HS Acetaminophen/Diphenhydramine (Tylenol Pm), 1 TAB PO HS PRN for Sleep Gabapentin (Neurontin), 100 MG PO BID Clonazepam (Klonopin), 0.5 MG PO HS Dutasteride-Tamsulosin Hcl (Missy), 1 TAB PO QPM Budesonide/Formoterol Fumarate (Symbicort 160/4.5 Inhaler ), 2 PUFFS INH BID Omeprazole (Prilosec), 20 MG PO AM/PM If you have any questions please call us at [phone] or [phone] or [phone]
[2016-10-02 11:37] LABS: BASO % 0.4 %; BASO ABS # 0.03 K/uL (0-0.2); COMPLETE YES; EOS % 2.2 %; HEMATOCRIT 33.7 % (42-52); IG% 0.4 %; LYMPH % 11.4 %; LYMPH ABS # 0.83 K/uL (1.2-3.4); MEAN CELL VOLUME 73.9 fL (80-100); MEAN CORPUSCULAR HEMOGLOBIN 23.5 pg (25-34); MEAN CORPUSCULAR HGB CONC 31.8 g/dl (32-36); MEAN PLATELET VOLUME 9.3 fL (7.4-10.4); MONO % 8.9 %; NEUT % 76.7 %; PLATELET COUNT 181 K/uL (130-400); RED BLOOD COUNT 4.56 M/uL (4.7-6.1); WHITE BLOOD COUNT 7.29 K/uL (4.8-10.8)
[2016-10-02 11:39] LABS: URINE APPEARANCE CLEAR (CLEAR); URINE BILIRUBIN NEG (NEG); URINE COLOR YELLOW; URINE NITRITE NEG (NEG); URINE PH 5.5 (4.5-7.5); URINE SPECIFIC GRAVITY 1.018 (1.000-1.030); UROBILINOGEN NEG (NEG)
[2016-10-02 11:42] LABS: MANUAL MICROSCOPIC REQUIRED? NO; REVIEW REQ? NO
[2016-10-02 11:44] LABS: BUN/CREATININE RATIO 17.5 (10-20); CALCIUM 8.8 mg/dl (8.5-10.1); CREATININE 1.1 mg/dl (0.60-1.40); POTASSIUM 5.1 mmol/L (3.5-5.1)
== END | disposition home or self-care (01) ==
LOC: C.LAB 08:00 → EDSTATUS 10-19 09:30
PROVIDERS: ATTEND Urology
DX: Z01.818 Encounter for other preprocedural examination (principal)

== ENCOUNTER → 2016-10-13 | Outpatient (CLI) | payer BC ==
[~2016-10-13] MED LIST changes: -CIPROFLOXACIN / D5W 400 MG IV SCH; -GABA1CAP4 PO; -GABA1CAP5 PO; -LACTATED RINGER'S 1000ML 1,000 ML IV SCH; +OPTIRAY 320 IV PRN; -OXYC-57 PO; -ULT50 PO; -XRL20 PO; +[UNRECOGNIZED DRUG - OTHER] PEG; -[UNRECOGNIZED DRUG - OTHER] TOP
--- NOTE | 2016-10-13 11:46 | DIAGNOSTIC IMAGING REPORT ---
CHEST CT WITH CONTRAST CT DOSE: 627.21 mGycm HISTORY: Initial exam. 44.9 Chronic asthmatic emhtswoscrC35.898 History of alxilhiY66.8 TECHNIQUE: Multiaxial CT images of the chest were performed following the intravenous administration of 94 mL Optiray 320 IV contrast. A dose lowering technique was utilized adhering to the principles of ALARA. COMPARISON: CTA chest 09/01/2016,, 06/16/[address] 06/06/2006. FINDINGS: Thyroid is homogeneous. No pathologic adenopathy of the chest identified. Heart is mildly enlarged with pacer lead overlying the right ventricle. There is a small pericardial effusion. Coronary arterial calcifications are noted. There is mild atherosclerosis of the aorta. There is mild dilation of the descending thoracic aorta measuring up to 4.1 cm, unchanged. Pulmonary artery is dilated, 3.3 cm suggesting pulmonary arterial hypertension. Moderate right pleural effusion. Unchanged in size from comparison. There is a trace left pleural effusion as well. Subsegmental right basilar opacities suggest atelectasis with linear atelectatic change also seen within the left lower lobe. There is a mildly spiculated 5 x 4 mm nodule within the right upper lobe seen on image 93 of series 4,which appears new from chest CT 06/16/2011 and is unchanged from CTA 09/01/2016. Scattered calcified granulomas are present bilaterally. 3 mm noncalcified pulmonary nodule seen within the apical posterior segment left upper lobe on image 70. 3 mm noncalcified point nodule seen within the right middle lobe. There are scattered groundglass opacities of the lung apices with some centrilobular nodules suggesting pneumonitis, mildly improved from prior. Central airways are patent. No pneumothorax. Moderate hiatal hernia with partially intrathoracic stomach is noted. Remaining imaged upper abdominal structures demonstrate no focal abnormality. Bones are intact. Severe multilevel intervertebral disc space narrowing. IMPRESSION: 1. Moderate right and trace left pleural effusions are redemonstrated with bibasilar subsegmental atelectasis or scarring. 2. Improved aeration of the upper lobes bilaterally with persistent mild groundglass and centrilobular opacities suggesting residual pneumonitis. 3. Scattered calcified and noncalcified pulmonary nodules are again seen as above, most of which appear benign and unchanged however there is a mildly spiculated 5 x 4 mm noncalcified pulmonary nodule within the right upper lobe which is new from 06/16/2011 and appears unchanged from 09/01/2016, however warrants appropriate follow-up as described below. 4. Moderate-sized hiatal hernia. Please refer to below summary of Fleischner criteria recommendations for follow-up of incidental CT nodules (Andrés Ta, Guidelines for management of small pulmonary nodules detected on CT scans: A statement from the Fleischner Society, Radiology 237: [phone].) SOLID NODULES Solitary nodule size: <6 mm * Low risk patients: no follow-up needed * high risk patients: optional CT at 12 months Solitary nodule size: 6-8 mm * Low risk patients: follow-up at 6-12 months, then consider further follow-up at 18-24 months * high risk patients: initial follow-up CT at 6-12 months and then at 18-24 months if no change Solitary nodule size: >8 mm * either low or high risk patients - consider follow-up CT at 3 months, and/or CT-PET, and/or biopsy Multiple nodules size: <6 mm * Low risk patients: no routine follow-up * high risk patients: optional CT at 12 months Multiple nodules size: 6-8 mm * Low risk patients: follow-up at 3-6 months, then consider further follow-up at 18-24 months * high risk patients: follow-up at 3-6 months, then at 18-24 months if no change Multiple nodules size: >8 mm * Low risk patients: follow-up at 3-6 months, then consider further follow-up at 18-24 months * high risk patients: follow-up at 3-6 months, then at 18-24 months if no change Note: newly detected indeterminate nodule in persons 35 years of age or older. * Low risk patients: minimal or absent history of smoking and/or other known risk factors * high risk patients: history of smoking or of other known risk factors (e.g. first degree relative with lung cancer, or exposure to asbestos, radon, uranium) * if a nodule up to 8 mm is partly solid or is ground glass further follow-up is required after 24 months to exclude possible slow growing adenocarcinoma (BRIANNE) SUBSOLID NODULES Solitary pure ground-glass nodule * nodule size <6 mm - no CT follow-up required * nodule size >=6 mm - follow-up CT at 6-12 months, then every 2 years until 5 years Solitary part-solid nodule * nodule size <6 mm - no CT follow-up required * nodule size >=6 mm - follow-up CT at 3-6 months. If unchanged, and solid component remains <6 mm, then annual follow-up for 5 years Multiple subsolid nodules * nodule size <6 mm - follow-up CT at 3-6 months, consider further follow-up at 2 and 4 years if stable * nodule size >=6 mm - follow-up CT at 3-6 months, subsequent management based on the most suspicious nodule(s) The above report was generated using voice recognition software. It may contain grammatical, syntax or spelling errors. Electronically signed by: Nikhil Bain M.D. 10/13/2016 11:45 AM Dictated Date/Time: 10/13/2016 11:33 AM
== END | disposition home or self-care (01) ==
LOC: C.CTS 11:02
PROVIDERS: ATTEND Internal Medicine Pulmonary Disease
DX: J44.9 Chronic obstructive pulmonary disease, unspecified (principal); J98.11 Atelectasis; R09.89 Other specified symptoms and signs involving the circulatory and respiratory systems; Z87.898 Personal history of other specified conditions; R91.8 Other nonspecific abnormal finding of lung field; K44.9 Diaphragmatic hernia without obstruction or gangrene

== ENCOUNTER → 2016-10-17 | Outpatient (CLI) | payer BC ==
[~2016-10-17] MED LIST changes: -OPTIRAY 320 IV PRN
[2016-10-17 13:29] LABS: INR 1.1 (0.9-1.1); PARTIAL THROMBOPLASTIN RATIO 1.1; PROTHROMBIN TIME (PATIENT) 11.4 SECONDS (9.0-12.0)
[2016-10-17 14:52] LABS: HEMATOCRIT 33.9 % (42-52); MEAN CELL VOLUME 72.3 fL (80-100); MEAN CORPUSCULAR HEMOGLOBIN 22.4 pg (25-34); MEAN PLATELET VOLUME 10.4 fL (7.4-10.4); PLATELET COUNT 207 K/uL (130-400); RED BLOOD COUNT 4.69 M/uL (4.7-6.1); WHITE BLOOD COUNT 7.07 K/uL (4.8-10.8)
[2016-10-17 15:00] LABS: ALT/SGPT 14 U/L (12-78); BLOOD UREA NITROGEN 20 mg/dl (7-18); BUN/CREATININE RATIO 18.2 (10-20); CALCIUM 9.3 mg/dl (8.5-10.1); CARBON DIOXIDE 27 mmol/L (21-32); CHLORIDE 105 mmol/L (98-107); GLUCOSE 112 mg/dl (70-99); POTASSIUM 4.4 mmol/L (3.5-5.1); SODIUM 137 mmol/L (136-145)
[2016-10-17 15:05] LABS: ALB/GLOB RATIO 1.1 (0.9-2); ALKALINE PHOSPHATASE 78 U/L (45-117); AST/SGOT 12 U/L (15-37)
== END | disposition home or self-care (01) ==
LOC: C.LAB1850 12:29
PROVIDERS: ATTEND Internal Medicine
DX: J90 Pleural effusion, not elsewhere classified (principal); D64.9 Anemia, unspecified; I50.32 Chronic diastolic (congestive) heart failure; J44.9 Chronic obstructive pulmonary disease, unspecified

== ENCOUNTER → 2016-11-09 | Day surgery (SDC) | payer BC ==
[~2016-11-09] VITALS: Ht 175.3 cm; Wt 78.3 kg
--- NOTE | 2016-11-09 11:57 | History and Physical ---
History & Physical Date of Service Nov 09, 2016. History & Physical Reason for Thoracentesis: Moderate right-sided, recurrent pleural effusion History of present illness: Patient is an 86-year-old male presenting today for thoracentesis. The patient was recently evaluated by Dr. Coronado in the office and was noted to have increased shortness of breath since his last visit. The patient has been having increasing shortness of breath on exertion, and also has been experiencing weakness and dizziness. The patient is anticipated to have a TURP completed for urologic obstructive symptoms, but that surgery has been put on hold due to his persistent cardiopulmonary symptoms. The patient is currently on p.o. Lasix 20 mg daily due to concerns fluid overload. The patient does have recent history of admission to [facility] from September 02 to September 03 for acute on chronic diastolic heart failure. The echocardiogram during his admission showed diastolic dysfunction along with mild aortic regurg, mitral regurgitation, and moderate tricuspid regurgitation. He did undergo right-sided thoracentesis on 09/21/[address] Durand. At that time, approximately 1400 cc of serosanguineous fluid was removed. Cultures ultimately showed no growth. Pleural fluid analysis revealed: Pleural pH 7.41 White blood cell 256 Red blood cell 8000 Total protein 3.3 LDH 110 Glucose 104 Amylase 53 Cholesterol 43 Since that time, the patient did have a repeat CT scan completed on 10/13/2016 which showed a moderate right and trace left pleural effusions along with bibasilar atelectasis or scarring. Scattered calcified and noncalcified pulmonary nodules were again noted. A new 5 at by 4 mm noncalcified, spiculated nodule in the right upper lobe was also noted. This was unchanged from his exam on 09/01/2016, but new from his CT in 2011. The patient ultimately may be considered for a PleurX catheter, but repeat thoracentesis will be completed today. Review of systems: Shortness of breath, dyspnea on exertion, weakness, and dizziness. The patient denies chest pain. He does have a cardiac pacemaker in place. He does have urologic symptoms, but is unable to receive his TURP due to current cardiopulmonary symptoms. Patient overall feeling poorly. No current fever or chills. 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 History of Cath Stent Placement 2. History of Pacemaker Placement Family History 1. 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 Omeprazole 20 MG Oral 1/2 capsule daily 2. RaNITidine HCl - 75 MG Oral Tablet; 1 TABLET AT BEDTIME PRN Heartburn 3. Spiriva Respimat 2.5 MCG/ACT Inhalation Aerosol Solution; INHALE 2 PUFFS ONCE 4. Ventolin HFA 108 (90 Base) MCG/ACT Inhalation Aerosol Solution; INHALE 1-2 PUFFS EVERY 4-6 HOURS NEEDED AND DIRECTED 5. Furosemide 20 MG Oral Tablet; TAKE 1/2 TO 1 TABLET BY MOUTH ONCE DAILY DIRECTED BY WEIGHT; 6. Dutasteride-Tamsulosin HCl - 0.5-0.4 MG Oral Capsule; TAKE 1 CAPSULE Bedtime 7. Perioselect GEL 8. Vitamin C 500 MG Oral Tablet; TAKE 1 TABLET DAILY 9. Losartan Potassium 25 MG Oral Tablet; TAKE 1 TABLET DAILY 10. Glucosamine-Chondroitin Sulf Oral Tablet; Take 1 tablet twice daily 11. Gabapentin 100 MG Oral Capsule; 3 tablets bid for one week then 2 tablets bid for one week then 1 tablet bid 12. Xarelto 15 MG Oral Tablet; Take 1 tablet daily 13. Aspirin Low Dose 81 MG TABS; TAKE 1 TABLET DAILY 14. Lovastatin 20 MG Oral Tablet; TAKE 1 TABLET AT BEDTIME 15. Ipratropium [place] 0.03 % Nasal Solution; USE 2 SPRAYS IN EACH NOSTRIL 2 TO 3 TIMES DAILY 16. ClonazePAM 0.5 MG Oral Tablet; TAKE 1 TABLET AT BEDTIME 17. Fiber Formula Oral Capsule; Take 1 capsule twice daily Physical exam: Constitutional General appearance: No acute distress, well appearing and well nourished. Eyes Conjunctiva and lids: No swelling, erythema, or discharge. Pupils and irises: Equal, round and reactive to light. [id number] External inspection of ears and nose: Normal. Pulmonary Respiratory effort: No increased work of breathing or signs of respiratory distress. Auscultation of lungs: Abnormal. ~Decreased breath sounds especially at right base Cardiovascular Auscultation of heart: Normal rate and rhythm, normal S1 and S2, without murmurs. ~No discernible gallop. Pacer in place Examination of extremities for edema and/or varicosities: Abnormal. ~Trace to 1 + pitting edema bilaterally. Abdomen: Non-tender, no masses. Musculoskeletal Gait and station: Normal. Digits and nails: Normal without clubbing or cyanosis. Inspection of joints, bones, and muscles: Normal. Skin Skin and subcutaneous tissue: Normal without rashes or lesions. Neurologic Cranial nerves and sensation: Cranial nerves 2-12 and sensation/motor fxn grossly intact. Psychiatric Orientation to person, place and time: Normal. Mood and affect: Normal. Assessment and plan: Patient with moderate right-sided pleural effusion, shortness of breath, and worsening dyspnea on exertion. Plan for thoracentesis today for symptomatic relief. Will consider right-sided PleurX catheter in the future for recurrent pleural effusion. Patient will need follow-up in the office post thoracentesis to review results of fluid analysis and assess symptomatic improvement. Patient has been interviewed and examined. At this time agree with moving forward with a right sided thoracentesis.
[2016-11-09 12:21] VITALS: BP 113/74; PULSE 92; TEMP 36.5; O2SAT 97
[2016-11-09 12:34] VITALS: Ht 175.3 cm; Wt 78.3 kg
[2016-11-09 12:51] LABS: INR 1.2 (0.9-1.1); PARTIAL THROMBOPLASTIN RATIO 1.2; PROTHROMBIN TIME (PATIENT) 13.2 SECONDS (9.0-12.0)
[2016-11-09 13:20] VITALS: BP 137/83; PULSE 71; TEMP 36.9; O2SAT 98
--- NOTE | 2016-11-09 13:28 | Discharge Instructions ---
Discharge Instructions Date of Service Nov 09, 2016. Admission Reason for Admission: Right Pleural Effusion Discharge Discharge Diagnosis / Problem: chronic right-sided pleural effusion Discharge Goals Goal(s): Improve function, Diagnostic testing Activity Recommendations Activity Limitations: resume your previous activity . Instructions / Follow-Up Instructions / Follow-Up Follow-up with Dr. Jonathan Coronado in the pulmonary division Current Hospital Diet Patient's current hospital diet: Discharge Diet Recommended Diet: Regular Diet Procedures Procedures Performed: Ultrasound-guided right-sided thoracentesis Pending Studies Studies pending at discharge: no Laboratory Results Hemoglobin A1c Test 09/26/16 13:20 Range/Units Estimated Average Glucose 134 mg/dl Hemoglobin A1c 6.3 H 4.5-5.6 % Medical Emergencies . Who to Call and When: Medical Emergencies: If at any time you feel your situation is an emergency, please call 911 immediately. . Non-Emergent Contact Non-Emergency issues call your: Student Truck Driver . . "Provider Documentation" section prepared by Foster Durand. . VTE Core Measure Inpt VTE Proph given/why not?: Treatment not indicated
--- NOTE | 2016-11-09 13:29 | Procedure Note ---
Procedure Note Date of Service Nov 09, 2016. ([facility] ., TAMMYC) Procedure Note Procedures: Right-sided Thoracentesis Consent: obtained via the patient by Dr. Jarrod Durand and placed into the chart Pre-Procedural Dx: Right-sided pleural effusion Post-Procedural Dx: Right-sided pleural effusion Analgesia: 8cc of 1% Liquid Lidocaine Procedure: The patient was placed in an upright position and thoracic US was used to select a spot for the procedure. A spot along the posterior axillary line was marked in the 7th intercostal space. The patient was then draped and prepped in a sterile fashion. A modified Seldinger technique was then used for catheter placement. Flowing this approximately 700cc of clear, rivera pleural fluid was removed. The patient was then cleaned and placed at a 60 degree angle in the bed were the US was used to evaluate for possible pneumothorax. The US showed good lung sliding and starry night sign. EBL: 0 cc Complications: None Performed with Dr. Jarrod Durand present and assisting. ([facility] ., PA-C)
[2016-11-09 13:35] VITALS: BP 122/80; PULSE 70; O2SAT 96
[2016-11-09 13:50] VITALS: BP 127/80; PULSE 70; TEMP 36.4; O2SAT 97
[2016-11-09 14:15] LABS: PLEURAL FLUID TOTAL PROTEIN 2.9 g/dl
[2016-11-09 14:26] LABS: PLEURAL FLUID APPEARANCE HAZY; PLEURAL FLUID COLOR YELLOW; PLEURAL FLUID MONONUC RELAT 92.8 %; PLEURAL FLUID POLYNUC 7.2 %; PLEURAL FLUID SOURCE RIGHT LUNG; PLEURAL FLUID WBC (A) 941 /uL
== END | disposition home or self-care (01) ==
LOC: C.ACU 11:27
PROVIDERS: ATTEND Internal Medicine Critical Care Medicine
DX: J90 Pleural effusion, not elsewhere classified (principal); I25.10 Atherosclerotic heart disease of native coronary artery without angina pectoris; Z85.828 Personal history of other malignant neoplasm of skin; E11.9 Type 2 diabetes mellitus without complications; Z95.0 Presence of cardiac pacemaker; Z88.5 Allergy status to narcotic agent; Z79.82 Long term (current) use of aspirin

== ENCOUNTER 2016-11-30 12:43 | Day surgery (SDC) | payer BC ==
[~2016-11-30] VITALS: Ht 175.3 cm; Wt 78.3 kg
[~2016-11-30 12:43] MED LIST changes: -[UNRECOGNIZED DRUG - OTHER] PEG; +[UNRECOGNIZED DRUG - OTHER] TOP
--- NOTE | 2016-11-30 13:14 | Discharge Instructions ---
Discharge Instructions Date of Service Nov 30, 2016. Visit Reason for Visit: Right Pleural Effusion Discharge Discharge Diagnosis / Problem: Right Pleural Effusion Discharge Goals Goal(s): Improve function, Learn about illness Activity Recommendations Activity Limitations: resume your previous activity (in 24 hours) 1. Keep catheter dry until seen by Dr. Betancur. Anesthesia . Post Anesthesia Instructions: If you have had General Anesthesia or IV Sedation: * Do not drive today. * Resume driving when surgeon permits. * Do not make important decisions or sign legal documents today. * Call surgeon for: 1. Temperature elevations greater than 101 degrees F. 2. Uncontrollable pain. 3. Excessive bleeding. 4. Persistent nausea and vomiting. 5. Medication intolerance (nausea, vomiting or rash). * For nausea and vomiting use only clear liquids such as: tea, soda, bouillon until nausea subsides, then gradually increase diet as tolerated. * If you have any concerns or questions, call your surgeon's office. If physician is unavailable and it is an emergency, call 911 or go to the nearest emergency room. . Instructions / Follow-Up Instructions / Follow-Up 1. Pleurx to be drained daily. Keep record of amounts and call Dr. Betancur's office every with amounts. 2. Keep your scheduled appointment with Dr. Betancur on December 07, 2016 @ 9: 45 am. Go to hospital 1 hour before appointment to have a chest X-ray taken. Diet Recommendations Recommended Home Diet: resume previous diet Pending Studies Studies pending at discharge: no Medical Emergencies . Who to Call and When: Medical Emergencies: If at any time you feel your situation is an emergency, please call 911 immediately. . Non-Emergent Contact Non-Emergency issues call your: Surgeon Call Non-Emergent contact if: you have a fever, your pain is not controlled, wound has increased drainage . . "Provider Documentation" section prepared by Zeyad Cardona. .
[2016-11-30] MEDS ORDERED: LIDOCAINE HCL 1% 20 ML VIAL ONE (13:16)
[2016-11-30 13:25] VITALS: BP 167/97; PULSE 96; TEMP 36.5; O2SAT 96; Ht 175.3 cm; Wt 78.3 kg
[2016-11-30 13:42] VITALS: BP 139/80; PULSE 79; TEMP 36.6; O2SAT 95
[2016-11-30 14:01] VITALS: BP 127/79; PULSE 73; TEMP 36.8; O2SAT 96
--- NOTE | 2016-11-30 14:13 | OPERATIVE REPORT ---
DATE OF OPERATION: 11/30/2016 PREOPERATIVE DIAGNOSIS: Recurrent right pleural effusion. POSTOPERATIVE DIAGNOSIS: Same. PROCEDURE: Insertion of right PleurX catheter. SURGEON: Sy Betancur MD GUN SYNCHRONIZER: MARTHA Kraft ANESTHESIA: Local. SPECIFICS OF PROCEDURE: With the patient in the left lateral decubitus position, his right chest was prepped and draped in the usual sterile fashion. Using the ultrasound, we picked a place with a good window for fluid. After appropriate timeout had been called, a 25-gauge needle with 1% Xylocaine without epinephrine was used to anesthetize the skin and subcutaneous tissues. A large bore needle was then used to anesthetize the underlying muscle and pleura. We had free flowing serous fluid and the guidewire was inserted and needle removed. This insertion site was enlarged to a little bit more than 1 cm. Approximately 12 cm anterior to this, another skin wheal was raised, 25-gauge needle, 1% Xylocaine, a 1 cm incision was made. A long needle was used with 1% Xylocaine without epinephrine to anesthetize the subcutaneous tissues between the 2 incisions. A tunnel was attached to the PleurX catheter and dragged from the anterior to posterior incision and the tunneler removed. Introducer sheath was slid over the guidewire posteriorly into the pleural cavity and inner cannula and guidewire removed and the PleurX catheter was inserted through this peel away sheath, which was removed. Two separate 3-0 silk sutures were used to close the skin posteriorly. A 3-0 silk suture was used to anchor the catheter to the patient's skin anteriorly. 1200 mL of a light yellow serous fluid was drained. He had some mild re-expansion pain, but tolerated it very well. A chest x-ray is pending. I attest to the content of the Intraoperative Record and any orders documented therein. Any exception s are noted below.
[2016-11-30 14:27] LABS: PLEURAL FLUID TOTAL PROTEIN 3.2 g/dl
--- NOTE | 2016-11-30 14:27 | DIAGNOSTIC IMAGING REPORT ---
SINGLE VIEW CHEST CLINICAL HISTORY: Pleural effusion. FINDINGS: An AP, portable, upright chest radiograph is compared to study dated 09/21/2016. Correlation is made with chest CT dated 10/13/2016. The examination is degraded by portable technique and patient rotation. A single lead cardiac pacemaker is unchanged in position and partially obscures the left apex. The heart is enlarged. The pulmonary vasculature is noncongested. A large hiatal hernia is noted. Chronic interstitial thickening similar to previous. A pleural catheter is present at the right lung base. No right pleural effusion is identified. The right lung appears clear. There is a small left pleural effusion with left basilar consolidation. No pneumothorax is seen. The skeletal structures are osteopenic. The bony thorax is grossly intact. IMPRESSION: 1. A pleural catheter is present at the right lung base. No significant pleural effusion is seen. 2. There is a small left pleural effusion with left basilar consolidation. This could represent atelectasis and/or pneumonia. Clinical correlation will be required. 3. Cardiomegaly and cardiac pacemaker. There is no radiographic evidence of congestive failure. Electronically signed by: Román Arana M.D. 11/30/2016 2:25 PM Dictated Date/Time: 11/30/2016 2:23 PM
[2016-11-30 15:02] LABS: PLEURAL FLUID APPEARANCE HAZY; PLEURAL FLUID COLOR STRAW; PLEURAL FLUID MONONUC RELAT 91.5 %; PLEURAL FLUID POLYNUC 8.5 %; PLEURAL FLUID SOURCE RIGHT LUNG; PLEURAL FLUID WBC (A) 864 /uL
== END 2016-11-30 14:09 | disposition home or self-care (01) ==
LOC: C.ACU 12:43
PROVIDERS: ATTEND Surgery
DX: J90 Pleural effusion, not elsewhere classified (principal)

== ENCOUNTER → 2016-12-25 | Outpatient (CLI) | payer BC ==
[~2016-12-25] MED LIST changes: -GABA-112 PO
--- NOTE | 2016-12-25 14:50 | DIAGNOSTIC IMAGING REPORT ---
CHEST 2 VIEWS ROUTINE CLINICAL HISTORY: Portal effusion. Reflux. COMPARISON STUDY: December 07, 2016 FINDINGS: The cardiac and mediastinal contours remain stable. There is a large hiatal hernia with air-fluid level. There is a left subclavian single chamber central venous pacemaker. There is a right basilar pleural catheter. There is no significant pneumothorax. There is no significant pleural fluid. IMPRESSION: 1. Large hiatal hernia containing an air-fluid level 2. No change in position of the right basilar pleural catheter 3. No significant pleural fluid 4. No significant pneumothorax Electronically signed by: Dano Wheeler M.D. 12/25/2016 2:49 PM Dictated Date/Time: 12/25/2016 2:47 PM
== END | disposition home or self-care (01) ==
LOC: C.RAD1850 14:37
PROVIDERS: ATTEND Physician Assistant
DX: K21.9 Gastro-esophageal reflux disease without esophagitis (principal); J90 Pleural effusion, not elsewhere classified

== ENCOUNTER → 2017-01-15 | Outpatient (CLI) | payer BC ==
--- NOTE | 2017-01-15 14:03 | DIAGNOSTIC IMAGING REPORT ---
CHEST 2 VIEWS ROUTINE CLINICAL HISTORY: PLEURAL EFFUSION, R COMPARISON STUDY: 12/25/2016 FINDINGS: Large fixed hiatal hernia unchanged. Mild stable cardiomegaly. Diaphragms smooth. Lungs are clear. Permanent unipolar cardiac pacemaker in good position. IMPRESSION: Fixed lateral hernia. Mild stable cardiomegaly. The above report was generated using voice recognition software. It may contain grammatical, syntax or spelling errors. Electronically signed by: Duc Fleming M.D. 01/15/2017 2:02 PM Dictated Date/Time: 01/15/2017 1:58 PM
== END | disposition home or self-care (01) ==
LOC: C.RAD1850 13:49
PROVIDERS: ATTEND Surgery
DX: J90 Pleural effusion, not elsewhere classified (principal)

== ENCOUNTER → 2017-01-15 | Outpatient (CLI) | payer BC ==
[2017-01-15 15:36] LABS: HEMATOCRIT 39.4 % (42-52); MEAN CELL VOLUME 67.8 fL (80-100); MEAN CORPUSCULAR HEMOGLOBIN 21.3 pg (25-34); MEAN CORPUSCULAR HGB CONC 31.5 g/dl (32-36); PLATELET COUNT 162 K/uL (130-400); RED BLOOD COUNT 5.81 M/uL (4.7-6.1); WHITE BLOOD COUNT 8.93 K/uL (4.8-10.8)
[2017-01-15 15:47] LABS: BLOOD UREA NITROGEN 23 mg/dl (7-18); BUN/CREATININE RATIO 19.1 (10-20); CALCIUM 8.5 mg/dl (8.5-10.1); CARBON DIOXIDE 28 mmol/L (21-32); CHLORIDE 105 mmol/L (98-107); CREATININE 1.19 mg/dl (0.60-1.40); GLUCOSE 207 mg/dl (70-99); POTASSIUM 4.8 mmol/L (3.5-5.1); SODIUM 136 mmol/L (136-145)
[2017-01-15 15:57] LABS: CHOLESTEROL 141 mg/dl (0-200); CHOLESTEROL/HDL RATIO 1.4; FERRITIN 12.3 ng/ml (8.0-388.0); HDL CHOLESTEROL 103 mg/dl; LDL CHOLESTEROL CALCULATED 24 mg/dl; TRIGLYCERIDES 71 mg/dl (0-150); VERY LOW DENSITY LIPOPROT CALC 14 mg/dl
== END | disposition home or self-care (01) ==
LOC: C.LAB1850 14:05
PROVIDERS: ATTEND Urology
DX: I50.32 Chronic diastolic (congestive) heart failure (principal); E78.5 Hyperlipidemia, unspecified; C85.10 Unspecified B-cell lymphoma, unspecified site; I25.10 Atherosclerotic heart disease of native coronary artery without angina pectoris; N40.1 Benign prostatic hyperplasia with lower urinary tract symptoms; K21.9 Gastro-esophageal reflux disease without esophagitis; Z79.01 Long term (current) use of anticoagulants; Z95.0 Presence of cardiac pacemaker

== ENCOUNTER → 2017-02-21 | Outpatient (CLI) | payer BC ==
--- NOTE | 2017-02-21 14:54 | DIAGNOSTIC IMAGING REPORT ---
CHEST 2 VIEWS ROUTINE CLINICAL HISTORY: J90 Pleural effusion, [id number] dyspnea COMPARISON STUDY: 01/15/2017 FINDINGS: Right basilar chest drainage tube unaltered in position. Trace pleural fluid right lateral gastric angle. Moderate stable cardia megaly. Fixed hiatal hernia. Permanent unipolar cardiac pacer in good position. Mid to upper lungs are clear. IMPRESSION: 1. Right basilar chest drainage tube in good position. 2. No evidence pneumothorax. 3. Trace pleural fluid right base. 4. Unchanged fixed hiatal hernia. The above report was generated using voice recognition software. It may contain grammatical, syntax or spelling errors. Electronically signed by: Duc Fleming M.D. 02/21/2017 2:52 PM Dictated Date/Time: 02/21/2017 2:51 PM
== END | disposition home or self-care (01) ==
LOC: C.RAD1850 14:41
PROVIDERS: ATTEND Physician Assistant
DX: J90 Pleural effusion, not elsewhere classified (principal)

== ENCOUNTER 2017-03-06 10:53 | Day surgery (SDC) | payer BC ==
[2017-03-01 13:45] VITALS: BMI 26.0
--- NOTE | 2017-03-01 14:42 | PAT Medication Instructions ---
Service Date Mar 01, 2017. Current Home Medication List Acetaminophen (Tylenol), 650 MG PO PRN Acetaminophen/Diphenhydramine (Tylenol Pm), 1 TAB PO HS PRN for Sleep Albuterol Hfa (Ventolin Hfa), 2 PUFFS INH Q4 PRN for SOB/Wheezing Ascorbic Acid (Ascorbic Acid), 500 MG PO QAM Aspirin (Aspirin Ec), 81 MG PO QAM Benzonatate (Tessalon Perles), 100 MG PO TID PRN for Cough Budesonide/Formoterol Fumarate (Symbicort 160/4.5 Inhaler ), 2 PUFFS INH BID Calcium Polycarbophil (Fiber Tabs), 1 TAB PO BID Cetirizine (Zyrtec), 10 MG PO DAILY PRN for ALLERGIES Clonazepam (Klonopin), Unknown Dose PO HS Dutasteride-Tamsulosin Hcl (Missy), 1 TAB PO QPM Ferrous Sulfate (Iron (Ferrous Sulfate)), Unknown Dose 3XWK Furosemide (Lasix), 10-20 MG PO PRN Gabapentin (Neurontin), 100 MG PO HS Glucosamine-Chondroitin 500MG/400 Mg (Glucosamine-Chondroitin 500 Mg/400 Mg), 1 CAP PO BID Ipratropium [place] (Nasal) (Ipratropium [place]), 1 SPRAY MARIO for Nasal Congestion Losartan Potassium (Cozaar), 25 MG PO HS Lovastatin (Mevacor), 20 MG PO HS Omeprazole (Prilosec), 20 MG PO AMPM Ranitidine (Zantac), 75 MG PO BID PRN for Dyspepsia Rivaroxaban (Xarelto), 15 MG PO HS Tiotropium [place] (Spiriva Respimat), Unknown Dose INH QAM [Perioprotect Gel], 1 DOSE TOP HS Medication Instructions For Your Scheduled Surgery - Check with surgeon and hydro technician for instructions: Rivaroxaban (Xarelto), 15 MG PO HS - Hold the following medications starting 03/01/17: Glucosamine-Chondroitin 500MG/400 Mg (Glucosamine-Chondroitin 500 Mg/400 Mg), 1 CAP PO BID - Hold the following medications 24 hours prior to surgery: Losartan Potassium (Cozaar), 25 MG PO HS [Perioprotect Gel], 1 DOSE TOP HS - Hold the following medications the morning of surgery: Ranitidine (Zantac), 75 MG PO BID PRN for Dyspepsia Furosemide (Lasix), 10-20 MG PO PRN Ferrous Sulfate (Iron (Ferrous Sulfate)), Unknown Dose 3XWK Calcium Polycarbophil (Fiber Tabs), 1 TAB PO BID Cetirizine (Zyrtec), 10 MG PO DAILY PRN for ALLERGIES Benzonatate (Tessalon Perles), 100 MG PO TID PRN for Cough Ascorbic Acid (Ascorbic Acid), 500 MG PO QAM - Take the following medications the morning of surgery with a sip of water: Omeprazole (Prilosec), 20 MG PO AMPM Ipratropium [place] (Nasal) (Ipratropium [place]), 1 SPRAY MARIO for Nasal Congestion(if needed) Budesonide/Formoterol Fumarate (Symbicort 160/4.5 Inhaler ), 2 PUFFS INH BID Aspirin (Aspirin Ec), 81 MG PO QAM (okay to continue per surgeon) Acetaminophen (Tylenol), 650 MG PO PRN (okay to take up to 4 hours prior to surgery if needed) Albuterol Hfa (Ventolin Hfa), 2 PUFFS INH Q4 PRN for SOB/Wheezing (if needed) Tiotropium [place] (Spiriva Respimat), Unknown Dose INH QAM' - Take the following medications as scheduled the night before surgery: Ranitidine (Zantac), 75 MG PO BID PRN for Dyspepsia(if needed) Omeprazole (Prilosec), 20 MG PO AMPM Lovastatin (Mevacor), 20 MG PO HS Ipratropium [place] (Nasal) (Ipratropium [place]), 1 SPRAY MARIO for Nasal Congestion Gabapentin (Neurontin), 100 MG PO HS Furosemide (Lasix), 10-20 MG PO PRN(if needed) Ferrous Sulfate (Iron (Ferrous Sulfate)), Unknown Dose 3XWK Dutasteride-Tamsulosin Hcl (Missy), 1 TAB PO QPM Clonazepam (Klonopin), Unknown Dose PO HS Calcium Polycarbophil (Fiber Tabs), 1 TAB PO BID Cetirizine (Zyrtec), 10 MG PO DAILY PRN for ALLERGIES(if needed) Budesonide/Formoterol Fumarate (Symbicort 160/4.5 Inhaler ), 2 PUFFS INH BID Benzonatate (Tessalon Perles), 100 MG PO TID PRN for Cough.(if needed) Acetaminophen (Tylenol), 650 MG PO PRN(if needed) Acetaminophen/Diphenhydramine (Tylenol Pm), 1 TAB PO HS PRN for Sleep(if needed) Albuterol Hfa (Ventolin Hfa), 2 PUFFS INH Q4 PRN for SOB/Wheezing(if needed) If you have any questions please call us at [phone] or [phone] or [phone]
[2017-03-01 15:08] LABS: MEAN CORPUSCULAR HGB CONC 32.2 g/dl (32-36)
[2017-03-01 15:15] LABS: HEMATOCRIT 41.3 % (42-52); HEMOGLOBIN 13.3 g/dL (14.0-18.0); MEAN CELL VOLUME 73.8 fL (80-100); MEAN CORPUSCULAR HEMOGLOBIN 23.8 pg (25-34); RED CELL DISTRIBUTION WIDTH CV 26.6 % (11.5-14.5); RED CELL DISTRIBUTION WIDTH SD 70.9 fL (36.4-46.3)
[2017-03-01 15:16] LABS: ALBUMIN 3.1 gm/dl (3.4-5.0); CREATININE 1.23 mg/dl (0.60-1.40); POTASSIUM 5.3 mmol/L (3.5-5.1)
[2017-03-01 15:32] LABS: INR 1.2 (0.9-1.1)
[2017-03-01 15:33] LABS: PLATELET COUNT 126 K/uL (130-400)
[2017-03-01 15:35] LABS: BASO % 0.3 %; BASO ABS # 0.02 K/uL (0-0.2); EOS % 2.6 %; EOS ABS # 0.18 K/uL (0-0.5); IG# 0.04 K/uL (0.00-0.02); LYMPH % 13.1 %; LYMPH ABS # 0.89 K/uL (1.2-3.4); MONO % 10.9 %; MONO ABS # 0.74 K/uL (0.11-0.59); NEUT % 72.5 %; NEUT ABS # 4.93 K/uL (1.4-6.5)
--- NOTE | 2017-03-01 19:30 | History and Physical ---
History & Physical Date Mar 01, 2017. Chief Complaint B/L hand numbness History of Present Illness The patient is a 86 year old male with complaints of B/L Hand numbness/ tingling. Getting worse over the last couple of months. Waking him at nighttime with the need to shake his hands. Past Medical/Surgical History Medical Problems: (1) Asthma (2) Bronchitis (3) Enlarged prostate (4) Hematuria (5) Lymphoma (6) Pulmonary edema Congestive Heart failure HTN GERD COPD skin cancer Allergies Coded Allergies: Pregabalin (Verified Allergy, Severe, shortness of breath, 03/01/17) Allopurinol (Unverified Allergy, Unknown, UNKNOWN REACTION, 03/01/17) PER RECORDS Codeine (Verified Allergy, Unknown, DROWSY, 03/01/17) Cyclobenzaprine (Verified Allergy, Unknown, HALLUCINATIONS, 03/01/17) Diphenhydramine (Verified Allergy, Unknown, DROWSY, 03/01/17) Ropinirole (Unverified Allergy, Unknown, UNKNOWN REACTION, 03/01/17) PER RECORDS Tramadol (Verified Allergy, Unknown, HALLUCINATIONS, 03/01/17) Home Medications Scheduled Acetaminophen (Tylenol), 650 MG PO PRN Ascorbic Acid (Ascorbic Acid), 500 MG PO QAM Aspirin (Aspirin Ec), 81 MG PO QAM Budesonide/Formoterol Fumarate (Symbicort 160/4.5 Inhaler ), 2 PUFFS INH BID Calcium Polycarbophil (Fiber Tabs), 1 TAB PO BID Clonazepam (Klonopin), Unknown Dose PO HS Dutasteride-Tamsulosin Hcl (Missy), 1 TAB PO QPM Ferrous Sulfate (Iron (Ferrous Sulfate)), Unknown Dose 3XWK Furosemide (Lasix), 10-20 MG PO PRN Gabapentin (Neurontin), 100 MG PO HS Glucosamine-Chondroitin 500MG/400 Mg (Glucosamine-Chondroitin 500 Mg/400 Mg), 1 CAP PO BID Losartan Potassium (Cozaar), 25 MG PO HS Lovastatin (Mevacor), 20 MG PO HS Omeprazole (Prilosec), 20 MG PO AMPM Rivaroxaban (Xarelto), 15 MG PO HS Tiotropium [place] (Spiriva Respimat), Unknown Dose INH QAM [Perioprotect Gel], 1 DOSE TOP HS Scheduled PRN Acetaminophen/Diphenhydramine (Tylenol Pm), 1 TAB PO HS PRN for Sleep Albuterol Hfa (Ventolin Hfa), 2 PUFFS INH Q4 PRN for SOB/Wheezing Benzonatate (Tessalon Perles), 100 MG PO TID PRN for Cough Cetirizine (Zyrtec), 10 MG PO DAILY PRN for ALLERGIES Ipratropium [place] (Nasal) (Ipratropium [place]), 1 SPRAY MARIO for Nasal Congestion Ranitidine (Zantac), 75 MG PO BID PRN for Dyspepsia Physical Examination Respiratory/Chest: lungs clear Cardiovascular: regular rate, rhythm Extremities: + pertinent finding (+tinels and phalens, mild thenar atrophy) Plan of Treatment Plan for right CTR. Patient is agreeable to proceed. Risks and benefits were discussed as well as postoperative plan of care.
[2017-03-02 05:51] LABS: HEMOGLOBIN A1C 6.2 % (4.5-5.6)
[~2017-03-06] VITALS: Ht 175.3 cm; Wt 82.1 kg
[~2017-03-06 10:53] MED LIST changes: +ATROPINE SULFATE 0.1 MG/ML 5ML SYR IV PRN; +CEFAZOLIN 2000MG IV PUSH 15 ML IV SCH; +EpHEDrine SULFATE INJ 50 MG/ML AMP IV PRN; +FENTANYL CITRATE INJ 50 MCG/1 ML 2 ML VIAL IV PRN; +FERR50TA3; +GABA-112 PO; +LACTATED RINGER'S 1000ML 1,000 ML IV SCH; +ONDANSETRON INJ 2 MG/ML 2 ML VIAL IV PRN
[2017-03-06 11:17] VITALS: BP 150/99; PULSE 96; TEMP 36.3; O2SAT 98; Ht 175.3 cm; Wt 82.1 kg
[2017-03-06] MEDS ORDERED: FENTANYL CITRATE INJ 50 MCG/1 ML 2 ML VIAL ONE (12:13)
[2017-03-06] MEDS ORDERED: LIDOCAINE HCL 2% 2 ML VIAL (20MG/ML) ONE (12:13)
[2017-03-06] MEDS ORDERED: PROPOFOL IV EMULSION 10 MG/ML 20 ML VIAL IV ONE (12:13)
[2017-03-06] MEDS ORDERED: EpHEDrine SULFATE INJ 50 MG/ML AMP ONE (12:21)
[2017-03-06] MEDS ORDERED: BUPIVACAINE 0.5 % 5 MG/1 ML MPF 30ML VIAL ONE (13:05)
[2017-03-06] MEDS ORDERED: LIDOCAINE HCL 2% LOCAL 50ML VIAL ONE (13:22)
--- NOTE | 2017-03-06 13:43 | [facility] Post Operative Brief Note ---
Immediate Operative Summary Operative Date Mar 06, 2017. Pre-Operative Diagnosis Right carpal tunnel syndrome Post-Operative Diagnosis Right carpal tunnel syndrome Procedure(s) Performed Right wrist carpal tunnel release Surgeon Dr. Mccarthy Corn Detasseler Surgeon(s) none Estimated Blood Loss 0 cc Findings Consistent with Post-Op Diagnosis Specimens none per surgeon Drains None Anesthesia Type Local Complication(s) none (loocal MAC) Disposition Disposition: Recovery Room / PACU
--- NOTE | 2017-03-06 13:44 | Discharge Instructions ---
Discharge Instructions Date of Service Mar 06, 2017. Admission Reason for Admission: Right Wrist Carpal Tunnel Syndrome Discharge Discharge Diagnosis / Problem: carpal tunnel syndrome Discharge Goals Goal(s): Decrease discomfort Activity Recommendations Activity Limitations: per Instructions/Follow-up section Lifting Limitations: no more than 10 pounds Exercise/Sports Limitations: rest today Shower/Bathe: may shower/bathe in 3 days Weightbearing Status: Left weightbearing (as tolerated), Right weightbearing ( as tolerated) . Instructions / Follow-Up Instructions / Follow-Up UOC : Hand /Wrist Instr. ACTIVITY RECOMMENDATIONS: Avoid lifting anything until your first post-operative visit. Keep your hand elevated above the level of your heart at all times. Elbow should be above the level of the heart, and hand kept above the elbow. ~ You may use a sling if necessary. Ice the affected extremity a minimum of 3-4 times a day, 20 minutes each time. SPECIAL CARE INSTRUCTIONS: * Your bandage should be left in place until seen in the office. * Some drainage onto the dressing may occur.~ This is normal. * If the bandage feels excessively tight, you may loosen the elastic bandage.~ Then call the physician's office for further instructions. * You should move your fingers regularly, making a fist and extending them, unless otherwise instructed. SPECIAL PRECAUTIONS: * If you notice increased drainage, fever over 101 degrees F. or severe, unremitting pain, call your physician/office at . * You may have been prescribed pain medication.~ If you experience nausea and/ or skin rash, discontinue this medication and contact our office for an alternative medication. Pain Medication: a. You will be prescribed pain medication upon discharge that should last till your first post-operative appointment. b. You may also take Advil, Ibuprofen or Aleve between medication doses if you do not have any contraindication to taking them. c. You may also take Advil, Ibuprofen, Aleve or Tylenol in place of your pain medication if the pain is tolerable. FOLLOW UP VISIT: If appointment is not already scheduled: Please call [facility] to make a follow-up appointment after your surgery at . Follow up appointment with Dr. Mccarthy or his PA: 4 weeks Follow up appointment with Certified Hand Therapist at [facility] [place]:3-5 days may remove dressing in 2 days and apply a bandaid Current Hospital Diet Patient's current hospital diet: Discharge Diet Recommended Diet: Regular Diet Pending Studies Studies pending at discharge: no Laboratory Results Hemoglobin A1c Test 03/01/17 14:43 Range/Units Estimated Average Glucose 131 mg/dl Hemoglobin A1c 6.2 H 4.5-5.6 % Lipid Panel Test 01/15/17 14:15 Range/Units Triglycerides Level 71 0-150 mg/dl Cholesterol Level 141 0-200 mg/dl HDL Cholesterol 103 mg/dl Cholesterol/HDL Ratio 1.4 LDL Cholesterol, Calculated 24 mg/dl Medical Emergencies . Who to Call and When: Medical Emergencies: If at any time you feel your situation is an emergency, please call 911 immediately. . Non-Emergent Contact Non-Emergency issues call your: Primary Care Provider Call Non-Emergent contact if: temperature is above 101.5 . "Provider Documentation" section prepared by Patrick Gaona. . VTE Core Measure Inpt VTE Proph given/why not?: Contraindicated [place] Drug Monitoring Program Search Results: patient reviewed within database
[2017-03-06] MEDS ORDERED: OXYCODONE/ACETAMINOPHEN 5-325 TAB PO PRN ×2 (13:45)
[2017-03-06] MEDS ORDERED: ONDANSETRON INJ 2 MG/ML 2 ML VIAL IV PRN (13:45)
[2017-03-06] MEDS ORDERED: ACETAMINOPHEN 325 MG TAB PO PRN (13:45)
--- NOTE | 2017-03-06 14:11 | Anesthesiology Progress Note ---
Anesthesia Post Op Note Date & Time Mar 06, 2017 at 14:11 Vital Signs Pain Intensity: 0 Vital Signs Past 12 Hours Date Time Temp Pulse Resp B/P (MAP) Pulse Ox O2 Delivery O2 Flow Rate FiO2 03/06/17 14:00 70 14 105/70 97 Room Air 03/06/17 13:53 36.1 74 14 100/74 99 Room Air 03/06/17 11:17 36.3 96 16 150/99 (116) 98 Room Air Notes Mental Status: alert / awake / arousable, participated in evaluation Pt Amnestic to Procedure: Yes Nausea / Vomiting: adequately controlled Pain: adequately controlled Airway Patency, RR, SpO2: stable & adequate BP & HR: stable & adequate Hydration State: stable & adequate Anesthetic Complications: no major complications apparent
[2017-03-06 14:15] VITALS: BP 109/74; PULSE 90; TEMP 36.6; O2SAT 97
[2017-03-06 14:45] VITALS: BP 120/78; PULSE 69; O2SAT 98
--- NOTE | 2017-03-06 22:01 | OPERATIVE REPORT ---
DATE OF OPERATION: 03/06/2017 PREOPERATIVE DIAGNOSIS: Right carpal tunnel syndrome. POSTOPERATIVE DIAGNOSIS: Right carpal tunnel syndrome. PROCEDURE: Right carpal tunnel release. SURGEON: Masood Mccarthy MD. HAND WEAVER: None. ANESTHESIA: Local with monitored anesthesia care. COMPLICATIONS: None. INDICATIONS: This is an 86-year-old male with signs and symptoms of right carpal tunnel syndrome. The patient has a nerve conduction study and clinical exam consistent with carpal tunnel syndrome. The patient presents electively for carpal tunnel release after discussion of risks and benefits. The risks and benefits have been discussed including, but not limited to, risk of infection, nerve injury, stiffness, loss of motion, failure to improve, etc. Reasonable outcomes and options of treatment were discussed. An explanation of appropriate alternatives to the procedure that may be advantageous were discussed and their risks and benefits, as well as the risks and benefits of not proceeding with treatment. I offered to answer any additional inquiries concerning the treatment involved. All the patient's questions were answered. The patient is agreeable, understanding of the treatment plan and alternatives, and wishes to proceed with the treatment plan. FINDINGS: Moderate to severe compression of the median nerve. OPERATIVE PROCEDURE: The patient was identified. The proper procedure and site was verified. A surgical time out was taken and observed. The patient was given perioperative antibiotics prior to the skin incision. After administration of local anesthetic, the patient's right arm was prepped and draped in the usual sterile fashion. I then made an incision directly in line with the fourth ray just ulnar to the palmaris longus tendon. Dissection was carried down through the skin and subcutaneous tissues. Hemostasis was obtained with bipolar electrocautery. The superficial fascia layer was identified. This was transected with scissors. I then identified the transverse carpal ligament and this was sharply incised just ulnar to the median nerve. This incision was then carried to the proximal level of visualization. I then spread above and below the transverse carpal ligament and a meniscotome was used to complete the transection of the transverse carpal ligament 1 cm proximal to the proximal wrist crease. This was verified as completely released under direct vision. I then completed the release of the transverse carpal ligament distally to the level of the fat stripe and this was also verified as being completely released. The carpal tunnel was inspected. There was no evidence of space occupying lesion in the carpal tunnel. The median nerve was inspected and the motor branch takeoff was noted out of the direct surgical field and free from harm. The wound was copiously irrigated and the incision was closed with a buried subcuticular 4-0 Monocryl and Dermabond. A dry, sterile dressing was applied. The patient was sent to the PACU in stable condition. The hand was warm and well-perfused at the end of the case. I discussed the results of the procedure with the patient and family. I attest to the content of the Intraoperative Record and any orders documented therein. Any exception s are noted below.
== END 2017-03-06 15:30 | disposition home or self-care (01) ==
LOC: C.ACU 10:53
PROVIDERS: ATTEND Orthopaedic Surgery
DX: G56.03 Carpal tunnel syndrome, bilateral upper limbs (principal); J44.9 Chronic obstructive pulmonary disease, unspecified; N40.0 Benign prostatic hyperplasia without lower urinary tract symptoms; Z86.711 Personal history of pulmonary embolism; I10 Essential (primary) hypertension; K21.9 Gastro-esophageal reflux disease without esophagitis; Z85.820 Personal history of malignant melanoma of skin; I48.91 Unspecified atrial fibrillation; E78.00 Pure hypercholesterolemia, unspecified; M19.90 Unspecified osteoarthritis, unspecified site

== ENCOUNTER → 2017-04-02 | Outpatient (CLI) | payer BC ==
[~2017-04-02] MED LIST changes: -ATROPINE SULFATE 0.1 MG/ML 5ML SYR IV PRN; -CALC625T13 PO; -CEFAZOLIN 2000MG IV PUSH 15 ML IV SCH; -EpHEDrine SULFATE INJ 50 MG/ML AMP IV PRN; -FENTANYL CITRATE INJ 50 MCG/1 ML 2 ML VIAL IV PRN; -LACTATED RINGER'S 1000ML 1,000 ML IV SCH; -ONDANSETRON INJ 2 MG/ML 2 ML VIAL IV PRN; +RANI150T85 PO; -ZNTT/150 PO
[2017-04-02 09:26] LABS: MEAN CORPUSCULAR HGB CONC 33.7 g/dl (32-36)
[2017-04-02 09:40] LABS: HEMOGLOBIN A1C 6.1 % (4.5-5.6)
[2017-04-02 09:42] LABS: BLOOD UREA NITROGEN 18 mg/dl (7-18); CALCIUM 8.5 mg/dl (8.5-10.1); CARBON DIOXIDE 27 mmol/L (21-32); CREATININE 1.16 mg/dl (0.60-1.40); GLUCOSE 96 mg/dl (70-99); POTASSIUM 4.5 mmol/L (3.5-5.1); SODIUM 139 mmol/L (136-145)
[2017-04-02 09:45] LABS: HEMATOCRIT 41.3 % (42-52); HEMOGLOBIN 13.9 g/dL (14.0-18.0); MEAN CELL VOLUME 77.2 fL (80-100); RED CELL DISTRIBUTION WIDTH CV 24.6 % (11.5-14.5); RED CELL DISTRIBUTION WIDTH SD 68.2 fL (36.4-46.3); WHITE BLOOD COUNT 6.02 K/uL (4.8-10.8)
[2017-04-02 10:06] LABS: PLATELET COUNT 134 K/uL (130-400)
[2017-04-02 10:08] LABS: BASO % 0.5 %; BASO ABS # 0.03 K/uL (0-0.2); EOS ABS # 0.24 K/uL (0-0.5); IG# 0.05 K/uL (0.00-0.02); LYMPH % 19.9 %; MONO % 10.6 %; MONO ABS # 0.64 K/uL (0.11-0.59); NEUT % 64.2 %; NEUT ABS # 3.86 K/uL (1.4-6.5)
== END | disposition home or self-care (01) ==
LOC: C.LAB1850 08:23
PROVIDERS: ATTEND Internal Medicine
DX: D64.9 Anemia, unspecified (principal); R73.03 Prediabetes

== ENCOUNTER → 2017-04-20 | Outpatient (CLI) | payer BC ==
[~2017-04-20] MED LIST changes: +POTA10CA28 PO
--- NOTE | 2017-04-20 10:32 | DIAGNOSTIC IMAGING REPORT ---
CHEST 2 VIEWS ROUTINE CLINICAL HISTORY: 87 years-old Male presenting with J44.9 Chronic asthmatic [id number]. TECHNIQUE: PA and lateral views of the chest were obtained. COMPARISON: 02/21/2017. FINDINGS: Left subclavian pacer with single lead to the right ventricular apex. Cardiac silhouette mildly enlarged, unchanged. Stable opacity in the lingula. Trace pleural effusions greater on the right. A right pleural catheter terminates at the mid right hemithorax in a paramediastinal position as on prior exam. No new focal opacity. No pneumothorax. Osseous structures normal. Large hiatal hernia. IMPRESSION: 1. Right pleural catheter remains in place. No pneumothorax. 2. Trace pleural effusions, right greater than left. 3. Lingular atelectasis likely secondary to the large hiatal hernia and cardiomegaly. Electronically signed by: Dagoberto Lindsay M.D. 04/20/2017 10:31 AM Dictated Date/Time: 04/20/2017 10:28 AM
== END | disposition home or self-care (01) ==
LOC: C.RAD1850 09:34
PROVIDERS: ATTEND Internal Medicine Pulmonary Disease
DX: J44.9 Chronic obstructive pulmonary disease, unspecified (principal)

== ENCOUNTER → 2017-04-26 | Day surgery (SDC) | payer BC ==
[2017-04-05 10:33] VITALS: BMI 26.0
--- NOTE | 2017-04-24 10:33 | HISTORY & PHYSICAL EXAMINATION ---
DATE OF ADMISSION: 04/26/2017 CHIEF COMPLAINT: Left hand numbness. HISTORY OF PRESENT ILLNESS: The patient is an 87-year-old white male presenting with left hand numbness, ongoing now for years. He notes it is progressively getting worse. He has tried wrist braces without any improvement. He notes night awakening due to numbness and tingling. The problem occurs constantly. PAST MEDICAL HISTORY: Hypertension, GERD, enlarged prostate, COPD, congestive heart failure, history of cancer. PAST SURGICAL HISTORY: Status post right carpal tunnel release. CURRENT MEDICATIONS: Aspirin 81 mg 1 tablet p.o. daily; benzonatate 100 mg 1-2 capsules oral 3 times every day; chondroitin sulfate 250 mg capsule 1 tablet p.o. daily; clonazepam 0.5 mg, take 1 tablet orally; furosemide 20 mg tablets, take 1 tablet by oral route daily; gabapentin 100 mg capsule, take 3 capsules by oral route 2 times every day; glucosamine 500 mg 1 tablet p.o. daily; ipratropium bromide 0.03% nasal spray, spray 2 times b.i.d., Missy 0.5 mg extended release 1 capsule oral route every day; losartan 25 mg tablet, take 1 tablet orally every day; lovastatin 20 mg tablet, take 1 tablet oral route every day; omeprazole 20 mg, take 1 capsule p.o. every day; ranitidine 75 mg tablet, take 1 tablet by oral route 2 times every day; Spiriva inhale 1 capsule by inhalation every day; Symbicort inhale 2 puffs by inhalation route 2 times every day; Tylenol PM extra strength 2 capsules at bedtime as needed; Ventolin inhale 2 puffs by inhalation route every 4-6 hours as needed; vitamin C 500 mg, take 1 tablet by oral route every day; Xarelto 15 mg tablet, take 1 tablet by oral route every day; Zantac 150 mg tablet, take 1 tablet by oral route every day; Zyrtec 10 mg capsule, take 1 tablet by oral route every day. ALLERGY: TO PREGABALIN. SOCIAL HISTORY: No tobacco use. SYSTEMS REVIEW: CARDIOVASCULAR: No chest pain, palpitations, dyspnea on exertion. RESPIRATORY: No shortness of breath, wheezing, coughing. PHYSICAL EXAMINATION: HEART: Regular rate and rhythm. LUNGS: Clear to auscultation bilaterally. EXTREMITIES: Left upper extremity, positive Tinel's, positive Phalen's, numbness in the first 3-finger distribution. Neurovascularly intact. DIAGNOSIS: Left hand carpal tunnel syndrome. PLAN: The patient was set up for a left carpal tunnel release by Dr. Mccarthy. The risks and benefits have been discussed in the office in detail. The patient would like to proceed with left carpal tunnel release.
[~2017-04-26] VITALS: Ht 175.3 cm; Wt 82.1 kg
[~2017-04-26] MED LIST changes: +ACETAMINOPHEN 325 MG TAB PO PRN; +ATROPINE SULFATE 0.1 MG/ML 5ML SYR IV PRN; +BUPIVACAINE 0.5 % 5 MG/1 ML MPF 30ML VIAL ONE; +BUPIVACAINE/EPINEPHRINE 0.5% MPF 1:200,000 30 ML VIAL ONE; +CEFAZOLIN SOD 1 GM VIAL ONE; +EpHEDrine SULFATE INJ 50 MG/ML AMP IV PRN; +FENTANYL CITRATE INJ 50 MCG/1 ML 2 ML VIAL ONE; +LACTATED RINGER'S 1000ML 1,000 ML IV SCH; +LIDOCAINE HCL 2% 2 ML VIAL (20MG/ML) ONE; +LIDOCAINE HCL 2% LOCAL 50ML VIAL ONE; +OXYCODONE/ACETAMINOPHEN 5-325 TAB PO PRN; +PROPOFOL IV EMULSION 10 MG/ML 20 ML VIAL IV ONE
[2017-04-26 05:54] VITALS: BP 141/97; PULSE 87; TEMP 36.3; O2SAT 97; Ht 175.3 cm; Wt 82.1 kg
--- NOTE | 2017-04-26 07:16 | History & Physical Bridge - SC ---
H&P Re-Evaluation Bridge Note: I have examined the patient, reviewed the History & Physical and in the interval since the performance of the History & Physical I have noted the following changes of clinical significance: will plan for left carpal tunnel release No changes noted
--- NOTE | 2017-04-26 08:08 | [facility] Post Operative Brief Note ---
Immediate Operative Summary Operative Date Apr 26, 2017. Pre-Operative Diagnosis Left Hand Carpal Tunnel Syndrome Post-Operative Diagnosis Left Hand Carpal Tunnel Syndrome Procedure(s) Performed Left Wrist Carpal Tunnel Release Surgeon Dr. Masood Mccarthy Plow And Boring Machine Tender Surgeon(s) None Estimated Blood Loss 0mL Findings Consistent with Post-Op Diagnosis Specimens none per surgeon Drains None Anesthesia Type MAC Complication(s) none
--- NOTE | 2017-04-26 08:20 | Anesthesiology Progress Note ---
Anesthesia Post Op Note Date & Time Apr 26, 2017 at 08:20 Vital Signs Pain Intensity: 0 Vital Signs Past 12 Hours Date Time Temp Pulse Resp B/P (MAP) Pulse Ox O2 Delivery O2 Flow Rate FiO2 04/26/17 08:10 71 16 116/76 99 Oxymask 5 04/26/17 08:02 36.6 83 16 109/77 99 Oxymask 5 04/26/17 05:54 36.3 87 20 141/97 (112) 97 Room Air Notes Mental Status: alert / awake / arousable, participated in evaluation Pt Amnestic to Procedure: Yes Nausea / Vomiting: adequately controlled Pain: adequately controlled Airway Patency, RR, SpO2: stable & adequate BP & HR: stable & adequate Hydration State: stable & adequate Anesthetic Complications: no major complications apparent
--- NOTE | 2017-04-26 08:32 | Discharge Instructions ---
Discharge Instructions Date of Service Apr 26, 2017. Visit Reason for Visit: Left Wrist Carpal Tunnel Syndrome Discharge Discharge Diagnosis / Problem: carpal tunnel release Discharge Goals Goal(s): Decrease discomfort Activity Recommendations Activity Limitations: as noted below (no lifting greater than 10 lbs) Exercise/Sports Limitations: rest today Shower/Bathe: may shower/bathe in 3 days, keep incision dry (may get incision wet in the shower in 2 days) Driving or Machine Use: resume 1 day after discharge Weightbearing Status: Left weightbearing (as tolerated), Right weightbearing ( as tolerated) Anesthesia . Post Anesthesia Instructions: If you have had General Anesthesia or IV Sedation: * Do not drive today. * Resume driving when surgeon permits. * Do not make important decisions or sign legal documents today. * Call surgeon for: 1. Temperature elevations greater than 101 degrees F. 2. Uncontrollable pain. 3. Excessive bleeding. 4. Persistent nausea and vomiting. 5. Medication intolerance (nausea, vomiting or rash). * For nausea and vomiting use only clear liquids such as: tea, soda, bouillon until nausea subsides, then gradually increase diet as tolerated. * If you have any concerns or questions, call your surgeon's office. If physician is unavailable and it is an emergency, call 911 or go to the nearest emergency room. . Diet Recommendations Recommended Home Diet: resume previous diet Procedures Procedures Performed: Left Wrist Carpal Tunnel Release Pending Studies Studies pending at discharge: no Medical Emergencies . Who to Call and When: Medical Emergencies: If at any time you feel your situation is an emergency, please call 911 immediately. . Non-Emergent Contact Non-Emergency issues call your: Primary Care Provider . . [facility]OC : Hand /Wrist Instr. ACTIVITY RECOMMENDATIONS: Avoid lifting anything until your first post-operative visit. Keep your hand elevated above the level of your heart at all times. Elbow should be above the level of the heart, and hand kept above the elbow. ~ You may use a sling if necessary. Ice the affected extremity a minimum of 3-4 times a day, 20 minutes each time. SPECIAL CARE INSTRUCTIONS: * Your bandage should be left in place until seen in the office. * Some drainage onto the dressing may occur.~ This is normal. * If the bandage feels excessively tight, you may loosen the elastic bandage.~ Then call the physician's office for further instructions. * You should move your fingers regularly, making a fist and extending them, unless otherwise instructed. SPECIAL PRECAUTIONS: * If you notice increased drainage, fever over 101 degrees F. or severe, unremitting pain, call your physician/office at . * You may have been prescribed pain medication.~ If you experience nausea and/ or skin rash, discontinue this medication and contact our office for an alternative medication. Pain Medication: a. You will be prescribed pain medication upon discharge that should last till your first post-operative appointment. b. You may also take Advil, Ibuprofen or Aleve between medication doses if you do not have any contraindication to taking them. c. You may also take Advil, Ibuprofen, Aleve or Tylenol in place of your pain medication if the pain is tolerable. FOLLOW UP VISIT: If appointment is not already scheduled: Please call [facility] to make a follow-up appointment after your surgery at . Follow up appointment with Dr. Mccarthy or his PA: 4 weeks Follow up appointment with Certified Hand Therapist at [facility]: 3 days "Provider Documentation" section prepared by Patrick Gaona. .
[2017-04-26 08:35] VITALS: BP 113/73; PULSE 71; TEMP 36.6; O2SAT 96
[2017-04-26 09:05] VITALS: BP 118/77; PULSE 82; O2SAT 96
--- NOTE | 2017-05-06 17:54 | OPERATIVE REPORT ---
DATE OF OPERATION: 04/26/2017 PREOPERATIVE DIAGNOSIS: Left carpal tunnel syndrome. POSTOPERATIVE DIAGNOSIS: Left carpal tunnel syndrome. PROCEDURE: Left carpal tunnel release. SURGEON: Masood Mccarthy MD. SPECIAL DELIVERY MAIL CARRIER: None. ANESTHESIA: Local with monitored anesthesia care. COMPLICATIONS: None. INDICATIONS: This is an 87-year-old male with signs and symptoms of left carpal tunnel syndrome. The patient has a nerve conduction study and clinical exam consistent with carpal tunnel syndrome. The patient presents electively for carpal tunnel release after discussion of risks and benefits. The risks and benefits have been discussed including, but not limited to, risk of infection, nerve injury, stiffness, loss of motion, failure to improve, etc. Reasonable outcomes and options of treatment were discussed. An explanation of appropriate alternatives to the procedure that may be advantageous were discussed and their risks and benefits, as well as the risks and benefits of not proceeding with treatment. I offered to answer any additional inquiries concerning the treatment involved. All the patient's questions were answered. The patient is agreeable, understanding of the treatment plan and alternatives, and wishes to proceed with the treatment plan. FINDINGS: [id number] compression of the median nerve with moderate hyperemia. OPERATIVE PROCEDURE: The patient was identified. The proper procedure and site was verified. A surgical time out was taken and observed. The patient was given perioperative antibiotics prior to the skin incision. After administration of local anesthetic, the patient's left arm was prepped and draped in the usual sterile fashion. I then made an incision directly in line with the fourth ray just ulnar to the palmaris longus tendon. Dissection was carried down through the skin and subcutaneous tissues. Hemostasis was obtained with bipolar electrocautery. The superficial fascia layer was identified. This was transected with scissors. I then identified the transverse carpal ligament and this was sharply incised just ulnar to the median nerve. This incision was then carried to the proximal level of visualization. I then spread above and below the transverse carpal ligament and a meniscotome was used to complete the transection of the transverse carpal ligament 1 cm proximal to the proximal wrist crease. This was verified as completely released under direct vision. I then completed the release of the transverse carpal ligament distally to the level of the fat stripe and this was also verified as being completely released. The carpal tunnel was inspected. There was no evidence of space occupying lesion in the carpal tunnel. The median nerve was inspected and the motor branch takeoff was noted out of the direct surgical field and free from harm. The wound was copiously irrigated and the incision was closed with a buried subcuticular 4-0 Monocryl and Dermabond. A dry, sterile dressing was applied. The patient was sent to the PACU in stable condition. The hand was warm and well-perfused at the end of the case. I discussed the results of the procedure with the patient and family. I attest to the content of the Intraoperative Record and any orders documented therein. Any exception s are noted below.
== END | disposition home or self-care (01) ==
LOC: C.ACU 05:15
PROVIDERS: ATTEND Orthopaedic Surgery
DX: G56.02 Carpal tunnel syndrome, left upper limb (principal); J44.9 Chronic obstructive pulmonary disease, unspecified; I10 Essential (primary) hypertension; I25.10 Atherosclerotic heart disease of native coronary artery without angina pectoris; I50.9 Heart failure, unspecified; I27.20 Pulmonary hypertension, unspecified; K21.9 Gastro-esophageal reflux disease without esophagitis; Z79.82 Long term (current) use of aspirin

== ENCOUNTER → 2017-05-07 | Outpatient (CLI) | payer BC ==
[~2017-05-07] MED LIST changes: -ACETAMINOPHEN 325 MG TAB PO PRN; -ATROPINE SULFATE 0.1 MG/ML 5ML SYR IV PRN; -BUPIVACAINE 0.5 % 5 MG/1 ML MPF 30ML VIAL ONE; -BUPIVACAINE/EPINEPHRINE 0.5% MPF 1:200,000 30 ML VIAL ONE; -CEFAZOLIN SOD 1 GM VIAL ONE; -EpHEDrine SULFATE INJ 50 MG/ML AMP IV PRN; -FENTANYL CITRATE INJ 50 MCG/1 ML 2 ML VIAL ONE; -LACTATED RINGER'S 1000ML 1,000 ML IV SCH; -LIDOCAINE HCL 2% 2 ML VIAL (20MG/ML) ONE; -LIDOCAINE HCL 2% LOCAL 50ML VIAL ONE; -OXYCODONE/ACETAMINOPHEN 5-325 TAB PO PRN; -PROPOFOL IV EMULSION 10 MG/ML 20 ML VIAL IV ONE
--- NOTE | 2017-05-07 13:52 | DIAGNOSTIC IMAGING REPORT ---
TWO VIEW CHEST CLINICAL HISTORY: Pleural effusion.. FINDINGS: PA and lateral chest radiographs are compared to study dated 04/20/2017 and correlated with chest CT dated 10/13/2016. A single lead cardiac pacemaker is unchanged in position and partially obscures the left upper chest. The heart is enlarged and there is atherosclerotic calcification of the thoracic aorta. The pulmonary vasculature is noncongested. A large hiatal hernia is again noted. Emphysema and chronic interstitial thickening are similar to previous. A pleural drain is seen at the right lung base. There are small pleural effusions with bibasilar consolidation. Scattered calcified granulomas are noted. There is no pneumothorax. The skeletal structures are osteopenic. The bony thorax appears intact. IMPRESSION: 1. Cardiomegaly and cardiac pacemaker. There is no radiographic evidence of congestive failure. 2. A pleural drain is seen at the right lung base. There are trace residual pleural effusions with bibasilar consolidation. This likely represents atelectasis. Clinical correlation will be required. 3. Large hiatal hernia. Electronically signed by: Román Arana M.D. 05/07/2017 1:51 PM Dictated Date/Time: 05/07/2017 1:49 PM
== END | disposition home or self-care (01) ==
LOC: C.RAD1850 13:28
PROVIDERS: ATTEND Internal Medicine Critical Care Medicine
DX: J90 Pleural effusion, not elsewhere classified (principal); I51.7 Cardiomegaly; Z95.0 Presence of cardiac pacemaker; K44.9 Diaphragmatic hernia without obstruction or gangrene

== ENCOUNTER → 2017-06-13 | Outpatient (CLI) | payer BC ==
--- NOTE | 2017-06-13 14:51 | DIAGNOSTIC IMAGING REPORT ---
CHEST 2 VIEWS ROUTINE HISTORY: Pleural drain. Right pleural effusion. Follow-up. COMPARISON: None. FINDINGS: There is a pleural drain seen within the right lung base. Trace right pleural effusion persists. No definite pneumothorax. Large hiatus hernia is again noted. The heart remains stable in size. Mild chronic interstitial thickening and linear densities at the left lung base is again noted. This favors atelectasis. No new focal lung consolidations. Left-sided single lead pacemaker. IMPRESSION: 1. No change in the trace right pleural effusion. The right lung base pleural catheter is again noted. 2. No definite pneumothorax. 3. Large hiatus hernia. 4. Stable left basilar linear densities and interstitial thickening. This may represent atelectasis. Electronically signed by: Elias Cerda M.D. 06/13/2017 2:50 PM Dictated Date/Time: 06/13/2017 2:46 PM
== END | disposition home or self-care (01) ==
LOC: C.RAD1850 14:24
PROVIDERS: ATTEND Surgery
DX: J90 Pleural effusion, not elsewhere classified (principal); K21.9 Gastro-esophageal reflux disease without esophagitis; R91.8 Other nonspecific abnormal finding of lung field; Z97.8 Presence of other specified devices

== ENCOUNTER 2018-06-09 12:51 | Inpatient (IN) ==
[2018-06-09] MEDS ORDERED: LIDOCAINE 2% JELLY 5 ML TUBE ONE (13:42)
--- NOTE | 2018-06-09 13:49 | Emergency Department Note ---
Entered by Yazmin Love acting as a scribe for Manuel Singh MD History of Present Illness General Chief complaint: Unable to Void Stated complaint: UNABLE TO VOID Time Seen by Provider: 06/09/18 13:04 Source: patient History of Present Illness Onset (ago): week(s) 1 Location: abdomen Pain Consistency: + other (persistent) Maximum Pain Intensity: 10 Quality: + other (difficulty urinating) Relieved By: + other (self-catheter) Associated symptoms: + denies other symptoms (light-headedness, back pain); no fever/chills The patient is a 88 year old male that is presenting to the Emergency Room with complaints of persistent urinary difficulties that started over a week ago. The patient reports that he has been unable to urinate secondary to blood clots. He states that he has a burning sensation whenever he has to urinate but is unable to. He denies any fevers, back pain, or light-headedness. He states that he was in the Emergency Room 9 days ago for similar symptoms and was given a self- catheter. He notes that it did not relieve his symptoms completely as he continued to notice clots in his urine. He notes that he had [facility] prostatectomy recently and wore a Hurtado catheter for a week afterwards. He states that the clotting started around that time. The patient reports that Dr. Rooney completed an US and noted that the patient still had 124mL of urine in his bladder after voiding. He noted that they decided to continue with self- catheterization at that time. He states that he was instructed to urinate normally during the day and then place a catheter at night, recording the amount of urine present before going to sleep. He notes that this system worked for one day until the following day when he started urinating every 10 minutes. The patient states that he has a history of congestive heart failure and atrial fibrillation. He notes that he currently has a pacemaker and takes Xarelto and Lasix. He denies taking any antibiotics currently. He notes that he is scheduled to see his urologist in 2 days. He denies any history of blood clots in his legs. The patient reports that he previously had pleural effusion that drained daily for 13 months before the space was closed by Dr. Betancur. Home Medications Home Medications Medication Instructions Recorded Confirmed Type Perioselect Gel 1 applic TOPICAL UD 11/09/17 06/09/18 History Spiriva Respimat 2 puff INHALATION QAM 11/09/17 06/09/18 History albuterol sulfate [Ventolin HFA] 2 puff INHALATION Q6H PRN 11/09/17 06/09/18 History aspirin [Aspir-Low] 81 mg PO QAM 11/09/17 06/09/18 History clonazepam [Klonopin] 1.5 mg PO HS 11/09/17 06/09/18 History dutasteride-tamsulosin [Missy] 1 tab PO HS 11/09/17 06/09/18 History glucosamine-chondroitin 1 tab PO BID 11/09/17 06/09/18 History ipratropium bromide 2 spray INTRANASAL TID PRN 11/09/17 06/09/18 History losartan [Cozaar] 25 mg PO HS 11/09/17 06/09/18 History lovastatin 20 mg PO HS 11/09/17 06/09/18 History omeprazole 20 mg PO BID 11/09/17 06/09/18 History psyllium husk [Metamucil] 0.52 g PO BID 11/09/17 06/09/18 History ranitidine HCl [Zantac 75] 75 mg PO HS PRN 11/09/17 06/09/18 History benzonatate [Tessalon Perles] 100 mg PO TID PRN #30 cap 11/19/17 06/09/18 Rx ferrous sulfate [iron] 325 mg PO 3XWK 04/24/18 06/09/18 History Xarelto 15 mg PO HS 05/30/18 06/09/18 History ascorbic acid (vitamin C) 500 mg PO QAM 05/30/18 06/09/18 History cetirizine [Zyrtec] 10 mg PO DAILY PRN 05/30/18 06/09/18 History ciprofloxacin HCl [Cipro] 250 mg PO BID #14 tab 05/30/18 06/09/18 Rx diphenhydramine-acetaminophen 1 - 2 tab PO HS PRN 05/30/18 06/09/18 History [Tylenol PM Extra Strength] furosemide 20 mg PO 5XWK 05/30/18 06/09/18 History potassium chloride [Klor-Con 10] 10 meq PO 5XWK 05/30/18 06/09/18 History triamcinolone acetonide 1 applic TOPICAL DAILY PRN 05/30/18 06/09/18 History oxybutynin chloride 5 mg PO DAILY 06/09/18 06/09/18 History Allergies Allergy/AdvReac Type Severity Reaction Status Date / Time pregabalin Allergy Severe shortness Verified 05/30/18 08:43 of breath allopurinol Allergy Unknown UNKNOWN Verified 05/30/18 08:43 REACTION ropinirole Allergy Unknown UNKNOWN Verified 05/30/18 08:43 REACTION cyclobenzaprine AdvReac Intermediate HALLUCINATI Verified 05/30/18 08:43 ONS tramadol AdvReac Intermediate HALLUCINATI Verified 05/30/18 08:43 ONS codeine AdvReac Mild DROWSY Verified 05/30/18 08:43 diphenhydramine AdvReac Mild DROWSY Verified 05/30/18 08:43 Past Med/Surg History Family History Other Family history non-contributory Social History Preferred Language: Ukrainian Communication Ability: Effective Beliefs That Will Affect Care: None marital status: Current Living Situation: Spouse Feels Safe at Home: Yes Smoking Status: Never smoker Second Hand Exposure: No Hx Alcohol Use: No Hx Substance Use: No Review of Systems See HPI for pertinent positives & negatives. and A total of 10 systems reviewed and were otherwise negative Physical Exam Vital Signs Vital Signs - 24 hr 06/09/18 12:52 06/09/18 13:53 06/09/18 13:54 Temperature 36.5 C Temperature Source Oral Sepsis Recent Fever Within 48 Hours No Sepsis Action Taken by Nursing No Action Required Pulse Rate 91 H Pulse Rate [Left] 77 Pulse Rhythm Regular Pulse Strength Normal Respiratory Rate 20 20 Respiratory Effort / Characteristics Non-Labored Spontaneous Non-Labored Spontaneous Respiratory Depth Normal Respiratory Pattern Regular Blood Pressure 98/62 L Blood Pressure [Right Arm] 152/94 H Blood Pressure Mean 74 Blood Pressure Mean [Right Arm] 113 Blood Pressure Position [Right Arm] Lying Pulse Oximetry 95 100 Oxygen Delivery Method Room Air Room Air Room Air 06/09/18 15:00 Temperature Temperature Source Sepsis Recent Fever Within 48 Hours Sepsis Action Taken by Nursing Pulse Rate Pulse Rate [Left] 72 Pulse Rhythm Pulse Strength Respiratory Rate 18 Respiratory Effort / Characteristics Respiratory Depth Respiratory Pattern Blood Pressure Blood Pressure [Right Arm] 152/94 H Blood Pressure Mean Blood Pressure Mean [Right Arm] 113 Blood Pressure Position [Right Arm] Pulse Oximetry 100 Oxygen Delivery Method General: Non-ill appearing older male in no acute distress. HEENT: Normal cephalic atraumatic. Pupils are equal round and reactive to light. Extraocular movements are intact. Oropharynx is pink with moist mucous membranes. No swelling of the mouth lips or tongue. Neck: Supple with a midline trachea. No meningeal signs or stiffness, no JVD or bruits. No Stridor. Chest: Clear to auscultation bilaterally. No wheezes or rhonchi. No increased work of breathing. Heart: regular rate and rhythm. Abdomen: Soft nondistended without rebound guarding or rigidity. Mildly tender in suprapubic region. Extremities: No cyanosis clubbing or edema. No calf tenderness or asymmetry Spine/Back. Non tender to palpation. No CVA tenderness Skin: Good turgor without rashes. Neurologic exam: Cranial nerves two through 12 are intact. Motor and sensation are intact and symmetrical throughout. Course 1306:The patient was evaluated in room C06. A complete history and physical examination was performed. 1347: I reevaluated the patient who is resting comfortably. A catheter was inserted successfully and the patient tolerated the procedure well. 1353: I discussed the patient's case with Dr. Ryder, Urology, who agreed w ith the patient's treatment. He recommended the patient follow up as scheduled with Dr. Rooney and agreed that the patient should temporarily discontinue his Xarelto. 1410: I checked on the patient and noted that his Hurtado catheter is draining adequately. There is blood present in the urine. 1435: I reevaluated the patient whose catheter has stopped draining and needs a repeat irrigation. 1458: I updated Dr. Smith on the patient's case, noting that the patient continues to clot and block any drainage through the Hurtado catheter. He recommends that the patient be admitted for further management. He states that he will place a new catheter and work on developing a treatment plan. Consultations Consultation #1: I discussed the patient's case with Dr. Ryder, Urology, who agreed with the patient's treatment. He recommended the patient follow up as scheduled with Dr. Rooney and agreed that the patient should temporarily discontinue his Xarelto. Time: 13:53 Consultation #2: I updated Dr. Smith on the patient's case, noting that the patient continues to clot and block any drainage through the Hurtado catheter. He recommends that the patient be admitted for further management. He states that he will place a new catheter and work on developing a treatment plan. Time: 14:58 Administered Medications Discontinued Medications Lidocaine HCl (Xylocaine Jely 2%) Confirm Administered Dose 5 ml .ROUTE .STK-MED ONE Stop: 06/09/18 13:43 Last Admin: 06/09/18 13:55 Dose: 5 ml Documented by: [id number] Morphine Sulfate (Morphine Sulfate) 2 mg IV NOW STA Stop: 06/09/18 15:10 Last Admin: 06/09/18 15:18 Dose: 2 mg Documented by: [id number] Ondansetron HCl (Zofran) 4 mg IV NOW STA Stop: 06/09/18 15:10 Last Admin: 06/09/18 15:17 Dose: 4 mg Documented by: [id number] Medical Decision Making Differential Diagnosis Differential diagnosis includes: Etiologies such as urinary retention, UTI, hematuria, anemia, electrolyte or metabolic abnormalities as well as others were entertained. Medical Records Attestation: I reviewed the patient's medical records. Home Medications Current Medication List: was personally reviewed by me Laboratory Data Attestation: I reviewed the patient's lab results. Result diagrams: 06/09/18 13:48 06/09/18 13:48 Lab Results 06/09/18 06/09/18 06/09/18 Range/Units 13:48 13:48 13:48 WBC 10.26 (4.8-10.8) K/uL RBC 4.10 L (4.7-6.1) M/uL Hgb 12.2 L (14.0-18.0) g/dL Hct 34.9 L (42-52) % MCV 85.1 (80-100) fL MCH 29.8 (25-34) pg MCHC 35.0 (32-36) g/dL RDW Std Deviation 48.2 H (36.4-46.3) fL RDW Coeff of Marcelino 15.5 H (11.5-14.5) % Plt Count 169 (130-400) K/uL MPV 9.2 (7.4-10.4) fL Immature Gran % (Auto) 0.9 % Neut % (Auto) 80.1 % Lymph % (Auto) 11.3 % [place] % (Auto) 6.5 % Eos % (Auto) 1.1 % Baso % (Auto) 0.1 % Immature Gran # (Auto) 0.09 H (0.00-0.02) K/uL Neut # (Auto) 8.22 H (1.4-6.5) K/uL Lymph # (Auto) 1.16 L (1.2-3.4) K/uL [place] # (Auto) 0.67 H (0.11-0.59) K/uL Eos # (Auto) 0.11 (0-0.5) K/uL Baso # (Auto) 0.01 (0-0.2) K/uL PT 13.5 H (9.0-12.0) Seconds INR 1.3 H (0.9-1.1) APTT 32.7 H (21.0-31.0) Seconds PTT Ratio 1.2 Sodium 138 (136-145) mmol/L Potassium 4.5 (3.5-5.1) mmol/L Chloride 104 (98-107) mmol/L Carbon Dioxide 23 (21-32) mmol/L Anion Gap 11.0 (3-11) BUN 28 H (7-18) mg/dl Creatinine 1.26 (0.6-1.4) mg/dl Est Cr Clr Drug Dosing 39.7 ml/min Est GFR ( Amer) 58.2 Est GFR (Non-Af Amer) 50.2 BUN/Creatinine Ratio 21.8 H (10-20) Glucose 119 H (70-99) mg/dl Calcium 8.9 (8.5-10.1) mg/dl Total Bilirubin 0.5 (0.2-1) mg/dl AST 17 (15-37) U/L ALT 15 (12-78) U/L Alkaline Phosphatase 75 (45-117) U/L Total Protein 6.5 (6.4-8.2) gm/dl Albumin 3.6 (3.4-5.0) gm/dl Globulin 2.9 (2.5-4.0) gm/dl Albumin/Globulin Ratio 1.2 (0.9-2) Urine Color Urine Appearance (Clear) Urine pH (4.5-7.5) Ur Specific [place] (1.000-1.030) Urine Protein (Negative) Urine Glucose (UA) (Negative) Urine Ketones (Negative) Urine Blood (Negative) Urine Nitrite (Negative) Urine Bilirubin (Negative) Urine Urobilinogen (Negative) Ur Leukocyte Esterase (Negative) Urine RBC (0-4) /hpf Urine WBC (0-5) /hpf Ur Epithelial Cells (0-5) /lpf Urine Bacteria (Negative) 06/09/18 Range/Units 13:55 WBC (4.8-10.8) K/uL RBC (4.7-6.1) M/uL Hgb (14.0-18.0) g/dL Hct (42-52) % MCV (80-100) fL MCH (25-34) pg MCHC (32-36) g/dL RDW Std Deviation (36.4-46.3) fL RDW Coeff of Marcelino (11.5-14.5) % Plt Count (130-400) K/uL MPV (7.4-10.4) fL Immature Gran % (Auto) % Neut % (Auto) % Lymph % (Auto) % [place] % (Auto) % Eos % (Auto) % Baso % (Auto) % Immature Gran # (Auto) (0.00-0.02) K/uL Neut # (Auto) (1.4-6.5) K/uL Lymph # (Auto) (1.2-3.4) K/uL [place] # (Auto) (0.11-0.59) K/uL Eos # (Auto) (0-0.5) K/uL Baso # (Auto) (0-0.2) K/uL PT (9.0-12.0) Seconds INR (0.9-1.1) APTT (21.0-31.0) Seconds PTT Ratio Sodium (136-145) mmol/L Potassium (3.5-5.1) mmol/L Chloride (98-107) mmol/L Carbon Dioxide (21-32) mmol/L Anion Gap (3-11) BUN (7-18) mg/dl Creatinine (0.6-1.4) mg/dl Est Cr Clr Drug Dosing ml/min Est GFR ( Amer) Est GFR (Non-Af Amer) BUN/Creatinine Ratio (10-20) Glucose (70-99) mg/dl Calcium (8.5-10.1) mg/dl Total Bilirubin (0.2-1) mg/dl AST (15-37) U/L ALT (12-78) U/L Alkaline Phosphatase (45-117) U/L Total Protein (6.4-8.2) gm/dl Albumin (3.4-5.0) gm/dl Globulin (2.5-4.0) gm/dl Albumin/Globulin Ratio (0.9-2) Urine Color Red Urine Appearance Turbid A (Clear) Urine pH (4.5-7.5) Ur Specific [place] 1.015 (1.000-1.030) Urine Protein Positive H (Negative) Urine Glucose (UA) (Negative) Urine Ketones (Negative) Urine Blood (Negative) Urine Nitrite (Negative) Urine Bilirubin (Negative) Urine Urobilinogen (Negative) Ur Leukocyte Esterase (Negative) Urine RBC >30 H (0-4) /hpf Urine WBC >30 H (0-5) /hpf Ur Epithelial Cells 0-5 (0-5) /lpf Urine Bacteria 1+ H (Negative) Blood Pressure Blood Pressure Findings: Low blood pressure MDM Narrative This patient comes in as described above. He had prostate surgery recently he has had trouble urinating off and on and passing clots in his urine he is on Xarelto for A. fib. He was seen by urology this past week and given self catheters he was having a hard time passing the catheter today. He is been pas sing clots. This is uncomfortable and makes him feel like he needs to urinate has lower abdominal pain. No fever or chills. No trauma. He appears uncomfortable. We did place a Hurtado catheter. Initially the nurse had some resistance and could advance it. They tried again and was able to go in and there was a grossly bloody urine. The patient felt significant better and looks good. Hemoglobin is stable at 12. His initial blood pressure was low however he has been normotensive and slightly hypertensive since then. He has no significant electrolyte or metabolic abnormalities acutely. While he was here in the ER, he did manage to clot the catheter off. We attempted irrigated and able to flush in but could not aspirate backout. I called Dr. Smith back and he is going to come in and see the patient the patient may need a three-way catheter or further urologic evaluation. The patient was having some discomfort is given morphine 2 mg IV and Zofran 4 mgs IV and seems more comfortable with this. Dr. Izquierdo is going to admit/observe the patient. It is complicated by the fact that he is on Xarelto and he is having further bleeding in his urine status post prostate surgery. Dr. Chavez is going to see him in consultation as well. Impression & Plan Hematuria, Bladder outlet obstruction, Anticoagulant long-term use, Abdominal pain Discharge Plan Visit Data Chief Complaint: Unable to Void Stated Complaint: UNABLE TO VOID ED Provider: Manuel Singh Discharge Problem: Hematuria, Bladder outlet obstruction, Anticoagulant long-term use, Abdominal pain Patient Disposition: Being Evaluated by Hospitalist Forms Stand Alone Forms: My [facility] Prescriptions Prescriptions: No Action ascorbic acid (vitamin C) 500 mg Tablet 500 mg PO QAM RF: 0 cetirizine [Zyrtec] 10 mg Tablet 10 mg PO DAILY PRN (Reason: Allergy Symptoms) RF: 0 diphenhydramine-acetaminophen [Tylenol PM Extra Strength] 25-500 mg Tablet 1 - 2 tab PO HS PRN (Reason: Sleep) RF: 0 oxybutynin chloride 5 mg tablet 5 mg PO DAILY RF: 0 clonazepam [Klonopin] 0.5 mg tablet 1.5 mg PO HS RF: 0 aspirin [Aspir-Low] 81 mg Tablet,Delayed Release (Dr/Ec) 81 mg PO QAM RF: 0 dutasteride-tamsulosin [Missy] 0.5-0.4 mg capsule, ER multiphase 24 hr 1 tab PO HS RF: 0 glucosamine-chondroitin 250-200 mg Tablet 1 tab PO BID RF: 0 ranitidine HCl [Zantac 75] 75 mg Tablet 75 mg PO HS PRN (Reason: Heartburn) RF: 0 losartan [Cozaar] 25 mg tablet 25 mg PO HS RF: 0 omeprazole 20 mg capsule,delayed release(DR/EC) 20 mg PO BID RF: 0 lovastatin 20 mg tablet 20 mg PO HS RF: 0 albuterol sulfate [Ventolin HFA] 90 mcg/actuation Hfa Aerosol Inhaler 2 puff INHALATION Q6H PRN (Reason: Shortness Of Breath Or Wheezing) RF: 0 ipratropium bromide 0.03 % spray,non-aerosol 2 spray Intranasal TID PRN (Reason: Nasal Congestion) RF: 0 psyllium husk [Metamucil] 0.52 gram Capsule 0.52 g PO BID RF: 0 Spiriva Respimat 2.5 mcg/actuation mist 2 puff Inhalation QAM RF: 0 Perioselect Gel 1 applic Topical UD RF: 0 benzonatate [Tessalon Perles] 100 mg capsule 100 mg PO TID PRN (Reason: cough) Qty: 30 RF: 0 ferrous sulfate [iron] 325 mg (65 mg iron) tablet 325 mg PO 3XWK RF: 0 potassium chloride [Klor-Con 10] 10 mEq tablet extended release 10 meq PO 5XWK RF: 0 triamcinolone acetonide 0.025 % cream 1 applic topical DAILY PRN (Reason: Rash) RF: 0 furosemide 20 mg tablet 20 mg PO 5XWK RF: 0 Xarelto 15 mg tablet 15 mg PO HS RF: 0 ciprofloxacin HCl [Cipro] 250 mg tablet 250 mg PO BID Qty: 14 RF: 0 Referrals Referrals: ProJonathan MD [Primary Care Provider] - The scribe's documentation has been prepared under my direction and personally reviewed by me in its entirety. I confirm that the note above accurately reflects all work, treatment, procedures, and medical decision making performed by me.
[2018-06-09 13:58] LABS: Basophils # (auto) 0.01 K/uL (0-0.2); Basophils % (auto) 0.1 %; Eosinophils # (auto) 0.11 K/uL (0-0.5); Eosinophils % (auto) 1.1 %; Hematocrit (blood only) 34.9 % (42-52); Hemoglobin 12.2 g/dL (14.0-18.0); Immature Granulocytes # (auto) 0.09 K/uL (0.00-0.02); Immature Granulocytes % (auto) 0.9 %; Lymphocytes # (auto) 1.16 K/uL (1.2-3.4); Lymphocytes % (auto) 11.3 %; Mean Corpuscular Volume 85.1 fL (80-100); Mean Platelet Volume 9.2 fL (7.4-10.4); Monocytes # (auto) 0.67 K/uL (0.11-0.59); Monocytes % (auto) 6.5 %; Neutrophils # (auto) 8.22 K/uL (1.4-6.5); Neutrophils % (auto) 80.1 %; Platelet Count 169 K/uL (130-400); RDW Coefficient of Variation 15.5 % (11.5-14.5); RDW Standard Deviation 48.2 fL (36.4-46.3); White Blood Count 10.26 K/uL (4.8-10.8)
[2018-06-09 14:14] LABS: Albumin Level 3.6 gm/dl (3.4-5.0); BUN Creatinine Ratio 21.8 (10-20); Calcium 8.9 mg/dl (8.5-10.1); Creatinine Clr Calc Pharmacy 39.7 ml/min; Est GFR (African American) 58.2; Est GFR (Non-African American) 50.2; INR 1.3 (0.9-1.1); Partial Thromboplastin Ratio 1.2; Partial Thromboplastin Time 32.7 Seconds (21.0-31.0); Potassium 4.5 mmol/L (3.5-5.1); Prothrombin Time 13.5 Seconds (9.0-12.0)
[2018-06-09 14:16] LABS: Color Urine Red
[2018-06-09 14:17] LABS: Albumin Globulin Ratio 1.2 (0.9-2); Bilirubin,Total 0.5 mg/dl (0.2-1); Globulin 2.9 gm/dl (2.5-4.0); Total Protein 6.5 gm/dl (6.4-8.2)
[2018-06-09 14:17] LABS: Appearance Urine Turbid (Clear); Protein Urine Positive (Negative); Specific Gravity Urine 1.015 (1.000-1.030)
[2018-06-09 14:20] LABS: Bacteria Urine 1+ (Negative); Epithelial Cell Urine 0-5 /lpf (0-5); RBC Urine >30 /hpf (0-4); WBC Urine >30 /hpf (0-5)
[2018-06-09] MEDS ORDERED: ONDANSETRON INJ 2 MG/ML 2 ML VIAL IV STA (15:09)
[2018-06-09] MEDS ORDERED: MoRPHine SULFATE 2 MG/ML CARP IV STA (15:09)
--- NOTE | 2018-06-09 15:56 | History & Physical Report ---
Date of Service June 09, 2018 Assessment & Plan (1) Gross hematuria: Patient with gross hematuria and urinary retention 3 weeks or so after a greenlight BPH treatment. The patient has a Hurtado catheter placed with gross hematuria and unable to remove any urine by gravity or by suction. Pending urology consultation. No imaging is been done of the area yet. I discussed imaging with the urgency room physician then such a bedside ultrasound or fast ultrasound. The emerge from physician felt it might be difficult to interpret given that gross blood in the bladder. Patient is only mildly uncomfortable BUN/creatinine 21.26 on presentation like to lites and bicarbonate are stable Urine is grossly bloody prophylactically ciprofloxacin is culture will be obtained Patient typically is on a combination tamsulosin regiment this will be held at this time until urology sees the patient (2) Atrial fibrillation, persistent: Patient with a history of anticoagulation use for atrial fibrillation. He is in a paced rhythm currently with rate control Patient typically takes Xarelto in the evening this will be held currently (3) HTN (hypertension): Patient's blood pressure slightly elevated he is in some distress we will continue him on his losartan and daily furosemide (4) Chronic diastolic heart failure: Patient's chronic diastolic heart failure is currently stable use IV fluid overnight continuing his Lasix therapy (5) COPD (chronic obstructive pulmonary disease): Patient is maintained on albuterol as needed and Spiriva (6) DVT prophylaxis: Chemoprophylaxis is contraindicated we will employ SCDs and teds History of Present Illness Primary Care Provider: Jontahan Mae MD Patient presents with a 24-hour history of so not been able to urinate with the bloody urination. The patient had a green light laser procedure at the urologist office approximately 3 weeks ago. Patient to be doing well until about 1 day prior when he started developing urgency and painful spasms in his lower abdomen. He then became unable to produce any urine. In the emergency department he had gross hematuria attempted a catheter was x2. Currently they did remove some urine however now the only able to instill fluid in and not able to remove any fluid. Urology consultation has been requested stat by the emergency room physician and the urologist recommended medical management to admit the patient given his comorbid history of chronic diastolic heart failure atrial fibrillation chronic anticoagulation and previous empyema. Patient is pleasant resting comfortably there is very dark bloody urine in his Hurtado catheter bag at the bedside. His is present also at the bedside Allergies Allergy/AdvReac Type Severity Reaction Status Date / Time pregabalin Allergy Severe shortness Verified 05/30/18 08:43 of breath allopurinol Allergy Unknown UNKNOWN Verified 05/30/18 08:43 REACTION ropinirole Allergy Unknown UNKNOWN Verified 05/30/18 08:43 REACTION cyclobenzaprine AdvReac Intermediate HALLUCINATI Verified 05/30/18 08:43 ONS tramadol AdvReac Intermediate HALLUCINATI Verified 05/30/18 08:43 ONS codeine AdvReac Mild DROWSY Verified 05/30/18 08:43 diphenhydramine AdvReac Mild DROWSY Verified 05/30/18 08:43 Home Medications Home Medications Medication Instructions Recorded Confirmed Type Perioselect Gel 1 applic TOPICAL UD 11/09/17 06/09/18 History Spiriva Respimat 2 puff INHALATION QAM 11/09/17 06/09/18 History albuterol sulfate [Ventolin HFA] 2 puff INHALATION Q6H PRN 11/09/17 06/09/18 History aspirin [Aspir-Low] 81 mg PO QAM 11/09/17 06/09/18 History clonazepam [Klonopin] 1.5 mg PO HS 11/09/17 06/09/18 History dutasteride-tamsulosin [Missy] 1 tab PO HS 11/09/17 06/09/18 History glucosamine-chondroitin 1 tab PO BID 11/09/17 06/09/18 History ipratropium bromide 2 spray INTRANASAL TID PRN 11/09/17 06/09/18 History losartan [Cozaar] 25 mg PO HS 11/09/17 06/09/18 History lovastatin 20 mg PO HS 11/09/17 06/09/18 History omeprazole 20 mg PO BID 11/09/17 06/09/18 History psyllium husk [Metamucil] 0.52 g PO BID 11/09/17 06/09/18 History ranitidine HCl [Zantac 75] 75 mg PO HS PRN 11/09/17 06/09/18 History benzonatate [Tessalon Perles] 100 mg PO TID PRN #30 cap 11/19/17 06/09/18 Rx ferrous sulfate [iron] 325 mg PO 3XWK 04/24/18 06/09/18 History Xarelto 15 mg PO HS 05/30/18 06/09/18 History ascorbic acid (vitamin C) 500 mg PO QAM 05/30/18 06/09/18 History cetirizine [Zyrtec] 10 mg PO DAILY PRN 05/30/18 06/09/18 History ciprofloxacin HCl [Cipro] 250 mg PO BID #14 tab 05/30/18 06/09/18 Rx diphenhydramine-acetaminophen 1 - 2 tab PO HS PRN 05/30/18 06/09/18 History [Tylenol PM Extra Strength] furosemide 20 mg PO 5XWK 05/30/18 06/09/18 History potassium chloride [Klor-Con 10] 10 meq PO 5XWK 05/30/18 06/09/18 History triamcinolone acetonide 1 applic TOPICAL DAILY PRN 05/30/18 06/09/18 History oxybutynin chloride 5 mg PO DAILY 06/09/18 06/09/18 History Past Med/Surg History Medical History Asthma (Chronic) Spiriva daily, was having hoarseness so d/c'd Symbicort per Dr Moran's instruction. 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 Nonocclusive CAD on rpt cath 2007 CHF (congestive heart failure) HX of. Euvolemic at PAT, EF normal on most recent echo. Chronic anticoagulation Depression GERD (gastroesophageal reflux disease) Hiatal hernia Hyperlipidemia Osteoarthritis Pacemaker Pacer checked 01/2018. VVIR. 8 year battery life. Pleural effusion due to CHF (congestive heart failure) Recurrent R sided, s/p Pleurx catheter with subsequent infection of the catheter requiring pleurectomy and decortication by dr montes 11/2017. Prediabetes Pulmonary hypertension 2/2 Sarcoidosis Surgical History H/O arthroscopy of shoulder H/O chest tube placement REMOVED BY DR. MONTES WITHIN PAST 6 MONTHS FOR PLEURAL EFFUSION H/O local excision of skin lesion History of carpal tunnel release PATIENT HAD CARDIOLOGY CLEARANCE PRIOR TO CTR 03/06/2017. History of lung surgery VATS/decortication 11/2017 Hx of cardiac cath 1999, stent placement. Hx of cataract surgery Previous back surgery Family History Other Family history non-contributory Social History Preferred Language: Kyr[place]z Communication Ability: Effective Beliefs That Will Affect Care: None marital status: Current Living Situation: Spouse Feels Safe at Home: Yes Smoking Status: Never smoker Second Hand Exposure: No Hx Alcohol Use: No Hx Substance Use: No Review of Systems Review of Systems: ROS: well nourished well developed. No double vision blurry vision No problems with speech or swallowing No palpitations, chest pain or pressure No Wheezing or breathing issues Centralized lower abdominal pain no nausea vomiting he did have some frequent loose bowel movements associated with a Unable to produce urine and when produces very grossly bloody No focal joint pain or muscle pain No skin rashes or oral lesions No unusual bruising or bleeding No focused back pain or numbness or loss of strength No changes in memory or confusion Physical Exam Physical Exam: The patient appeared well nourished and normally developed. Vital signs as documented. Head exam is unremarkable. normocephalic, atraumatic Neck is without jugular venous distension, thyromegaly, or lymphademopathy Lungs are few fine crackles are heard predominantly in the right lung left lung is clear Otic exam is regular it appears paced on the monitor Abdominal exam reveals hypoactive bowel sounds, no masses, no organomegaly pat ient has suprapubic tenderness exquisitely to palpation. Extremities are nonedematous and both pedal pulses are present Neurologic exam is A&Ox3, no focal deficits, strength is equal bilateral Psychologically seems neither anxious or depressed Skin is warm Dry without bruises or lesions Results & Data Vital Signs (Past 12 Hours) Vital Signs Temp Pulse Pulse Resp BP BP Pulse Ox 06/09/18 15:00 72 18 152/94 H 100 06/09/18 13:54 77 20 152/94 H 100 06/09/18 12:52 36.5 C 91 H 20 98/62 L 95
--- NOTE | 2018-06-09 17:05 | Urology Progress Note ---
Date of Service June 09, 2018 Subjective 88-year-old white male approximately 3 weeks post greenlight laser prost atectomy. He is on Xarelto. Developed gross hematuria with clot retention. Came to the emergency room. They had difficulty placing a Hurtado. Using usual sterile technique I placed a 20 Burmese three-way catheter irrigated the bladder with 3 L of saline until light pink. CBI started with normal saline. Patient tolerated the procedure well Results & Data Vital Signs (Past 12 Hours) Vital Signs Temp Pulse Pulse Resp BP BP Pulse Ox 06/09/18 15:00 72 18 152/94 H 100 06/09/18 13:54 77 20 152/94 H 100 06/09/18 12:52 36.5 C 91 H 20 98/62 L 95
[2018-06-09] MEDS ORDERED: SODIUM CHLORIDE 0.9% 1000ML 1,000 ML IV SCH (17:49)
[2018-06-09] MEDS ORDERED: cloNIDine HCl 0.1 MG TAB PO PRN (17:49)
[2018-06-09] MEDS ORDERED: ALBUTEROL HFA 8 GM INHALER INH PRN (17:49)
[2018-06-09] MEDS ORDERED: MoRPHine SULFATE 2 MG/ML CARP IV PRN (17:49)
[2018-06-09] MEDS ORDERED: IPRATROPIUM BROMIDE NASAL SPRAY 0.06% 15ML PRN (17:49)
[2018-06-09] MEDS ORDERED: ONDANSETRON INJ 2 MG/ML 2 ML VIAL IV PRN (17:49)
[2018-06-09] MEDS ORDERED: LORazepam 0.5 MG/1 ML VIAL IV PRN (17:49)
[2018-06-09] MEDS: ACETAMINOPHEN 500 MG TAB PO PRN (18:48)
[2018-06-09] MEDS: CIPROFLOXACIN 400 MG/200 ML BAG IV SCH (19:55)
[2018-06-09] MEDS: LOSARTAN POTASSIUM 25 MG TAB PO SCH (21:22)
[2018-06-09] MEDS: PANTOprazole 40 MG TAB PO SCH (21:22)
[2018-06-09] MEDS: clonazePAM 0.5 MG TAB PO SCH (21:22)
[2018-06-10] MEDS: ACETAMINOPHEN 500 MG TAB PO PRN (00:45)
[2018-06-10] MEDS: CIPROFLOXACIN 400 MG/200 ML BAG IV SCH (05:26)
[2018-06-10 06:41] LABS: Hematocrit (blood only) 33.9 % (42-52); Hemoglobin 11.6 g/dL (14.0-18.0); Mean Corpuscular Hgb Conc 34.2 g/dL (32-36); Mean Corpuscular Volume 86.3 fL (80-100); Mean Platelet Volume 9.5 fL (7.4-10.4); Platelet Count 139 K/uL (130-400); RDW Coefficient of Variation 15.6 % (11.5-14.5); RDW Standard Deviation 48.7 fL (36.4-46.3); Red Blood Count 3.93 M/uL (4.7-6.1); White Blood Count 9.85 K/uL (4.8-10.8)
[2018-06-10 07:17] LABS: BUN Creatinine Ratio 17.4 (10-20); Calcium 8.1 mg/dl (8.5-10.1); Creatinine Clr Calc Pharmacy 41.7 ml/min; Est GFR (African American) 61.8; Est GFR (Non-African American) 53.3; Potassium 4.1 mmol/L (3.5-5.1)
[2018-06-10] MEDS: PANTOprazole 40 MG TAB PO SCH ×2 (07:58→20:22)
[2018-06-10] MEDS: FUROSEMIDE 20 MG TAB PO SCH (07:58)
[2018-06-10] MEDS: TIOTROPIUM BROMIDE 5 PUFF/90 MCG INH INH SCH (07:58)
--- NOTE | 2018-06-10 08:37 | Urology Progress Note ---
Date of Service June 10, 2018 Assessment & Plan (1) Hematuria: Tolerating CBI. Continue to clamp as tolerated and monitor for any signs of distention or obstruction. Will continue to follow. Subjective 88YO male s/p GLTURP ~3 weeks ago with hematuria. CBI running at about 25%, tolerating. Feeling well. No pain. No fever/chills. No nausea/vomiting. Review of Systems Review of Systems: All systems reviewed & are unremarkable except as noted in HPI & below Physical Exam Physical Exam: WN/WD NAD. Resp effort normal. No JVD, no edema. Abd soft, nontender. A&O x3, appropriate affect. : stephenson intact, CBI running at 25%, urine in tubing is light pink. Results & Data Vital Signs (Past 12 Hours) Vital Signs Temp Pulse Pulse Resp BP Pulse Ox 06/10/18 07:48 36.3 C L 73 16 102/56 L 97 06/09/18 23:24 36.3 C L 67 16 104/66 97
[2018-06-10] MEDS: LOSARTAN POTASSIUM 25 MG TAB PO SCH (20:22)
[2018-06-10] MEDS: CIPROFLOXACIN 500 MG TAB PO SCH (20:22)
[2018-06-10] MEDS: clonazePAM 0.5 MG TAB PO SCH (20:22)
--- NOTE | 2018-06-10 23:37 | Hospitalist Progress Note ---
Date of Service June 10, 2018 Assessment & Plan (1) Gross hematuria: Patient with gross hematuria and urinary retention 3 weeks or so after a greenlight BPH treatment. The patient has a Stephenson catheter placed with gross hematuria and unable to remove any urine by gravity or by suction. Pending urology consultation. No imaging is been done of the area yet. I discussed imaging with the urgency room physician then such a bedside ultrasound or fast ultrasound. The emerge from physician felt it might be difficult to interpret given that gross blood in the bladder. Patient is only mildly uncomfortable BUN/creatinine 21.26 on presentation like to lites and bicarbonate are stable Urine is grossly bloody prophylactically ciprofloxacin is culture will be obtained Patient typically is on a combination tamsulosin regimen, Currently on triple lument irrigation of bladder. This appears to be improving. (2) Atrial fibrillation, persistent: Patient with a history of anticoagulation use for atrial fibrillation. He is in a paced rhythm currently with rate control Patient typically takes Xarelto in the evening this will be held currently (3) HTN (hypertension): Patient's blood pressure slightly elevated he is in some distress we will continue him on his losartan and daily furosemide (4) Chronic diastolic heart failure: Patient's chronic diastolic heart failure is currently stable use IV fluid overnight continuing his Lasix therapy (5) COPD (chronic obstructive pulmonary disease): Patient is maintained on albuterol as needed and Spiriva (6) DVT prophylaxis: Chemoprophylaxis is contraindicated we will employ SCDs and teds Subjective 88 yo male reports feeling well. He denies any new complaints. He notes that the urine in his stephenson no longer is having blood. Review of Systems Review of Systems: All systems reviewed & are unremarkable except as noted in HPI & below ROS: well nourished well developed. No double vision blurry vision No problems with speech or swallowing No palpitations, chest pain or pressure No Wheezing or breathing issues Centralized lower abdominal pain no nausea vomiting he did have some frequent loose bowel movements associated with a Unable to produce urine and when produces very grossly bloody No focal joint pain or muscle pain No skin rashes or oral lesions No unusual bruising or bleeding No focused back pain or numbness or loss of strength No changes in memory or confusion Physical Exam Physical Exam: The patient appeared well nourished and normally developed. Vital signs as documented. Head exam is unremarkable. normocephalic, atraumatic Neck is without jugular venous distension, thyromegaly, or lymphademopathy Lungs are CLEAR Otic exam is regular it appears paced on the monitor Abdominal exam reveals hypoactive bowel sounds, no masses, no organomegaly patient has suprapubic tenderness exquisitely to palpation. Extremities are nonedematous and both pedal pulses are present Neurologic exam is A&Ox3, no focal deficits, strength is equal bilateral Psychologically seems neither anxious or depressed Skin is warm Dry without bruises or lesions Results & Data Vital Signs (Past 12 Hours) Vital Signs Temp Pulse Pulse Resp BP BP Pulse Ox 06/10/18 20:21 71 110/72 06/10/18 15:26 36.9 C 70 16 98/62 L 99
--- NOTE | 2018-06-11 08:14 | Urology Progress Note ---
Date of Service June 11, 2018 Assessment & Plan (1) Hematuria: Clamped CBI, if patient continues to tolerate likely suitable for discharge today. Will check in again this afternoon to monitor, will determine maintain Hurtado at discharge vs. Hurtado removal at that time. Subjective 88YO male with gross hematuria. CBI currently running at ~15%, tolerating. Patient is feeling well. No pain. Slept well. No fever/chills. No nausea/vomiting. Review of Systems Review of Systems: All systems reviewed & are unremarkable except as noted in HPI & below Physical Exam Physical Exam: WN/WD NAD. Resp effort normal. No JVD. Abd soft, nontender. A&O x 3, appropriate affect. Results & Data Vital Signs (Past 12 Hours) Vital Signs Temp Pulse Pulse Resp BP Pulse Ox 06/11/18 06:54 36.7 C 71 16 109/68 97 06/10/18 22:56 37.2 C 74 16 95/54 L 94 06/10/18 20:21 71 110/72 (1) Hematuria Hematuria type: unspecified type Qualified Code(s): R31.9 - Hematuria, unspecified
[2018-06-11] MEDS: CIPROFLOXACIN 500 MG TAB PO SCH ×2 (08:48→21:07)
[2018-06-11] MEDS: TIOTROPIUM BROMIDE 5 PUFF/90 MCG INH INH SCH (08:48)
[2018-06-11] MEDS: PANTOprazole 40 MG TAB PO SCH ×2 (08:48→21:07)
[2018-06-11] MEDS: FUROSEMIDE 20 MG TAB PO SCH (08:48)
[2018-06-11 09:01] LABS: Hematocrit (blood only) 32.1 % (42-52); Hemoglobin 10.7 g/dL (14.0-18.0); Mean Corpuscular Hgb Conc 33.3 g/dL (32-36); Mean Corpuscular Volume 87.2 fL (80-100); Mean Platelet Volume 9.4 fL (7.4-10.4); Platelet Count 147 K/uL (130-400); RDW Coefficient of Variation 15.6 % (11.5-14.5); RDW Standard Deviation 49.5 fL (36.4-46.3); Red Blood Count 3.68 M/uL (4.7-6.1); White Blood Count 7.71 K/uL (4.8-10.8)
[2018-06-11 09:24] LABS: BUN Creatinine Ratio 19.3 (10-20); Calcium 8.2 mg/dl (8.5-10.1); Creatinine Clr Calc Pharmacy 45.5 ml/min; Est GFR (African American) 68.6; Est GFR (Non-African American) 59.2
[2018-06-11] MEDS: PSYLLIUM 58.6% POWDER PACKET PO SCH (21:06)
[2018-06-11] MEDS: clonazePAM 0.5 MG TAB PO SCH (21:07)
[2018-06-11] MEDS: LOSARTAN POTASSIUM 25 MG TAB PO SCH (21:07)
--- NOTE | 2018-06-11 22:40 | Hospitalist Progress Note ---
Date of Service June 11, 2018 Assessment & Plan (1) Gross hematuria: Patient with gross hematuria and urinary retention 3 weeks or so after a greenlight BPH treatment. The patient has a Hurtado catheter placed with gross hematuria and unable to remove any urine by gravity or by suction. Pending urology consultation. No imaging is been done of the area yet. I discussed imaging with the urgency room physician then such a bedside ultrasound or fast ultrasound. The emerge from physician felt it might be difficult to interpret given that gross blood in the bladder. Patient is only mildly uncomfortable BUN/creatinine 21.26 on presentation like to lites and bicarbonate are stable Urine is grossly bloody prophylactically ciprofloxacin is culture will be obtained Patient typically is on a combination tamsulosin regimen, Clamped irrigation. This appears to be improving. Will discharge in AM. Patient also has not had a BM since being in the hospital. (2) Atrial fibrillation, persistent: Patient with a history of anticoagulation use for atrial fibrillation. He is in a paced rhythm currently with rate control Patient typically takes Xarelto in the evening this will be held currently (3) HTN (hypertension): Patient's blood pressure slightly elevated he is in some distress we will continue him on his losartan and daily furosemide (4) Chronic diastolic heart failure: Patient's chronic diastolic heart failure is currently stable use IV fluid overnight continuing his Lasix therapy (5) COPD (chronic obstructive pulmonary disease): Patient is maintained on albuterol as needed and Spiriva (6) DVT prophylaxis: Chemoprophylaxis is contraindicated we will employ SCDs and teds Spent 25 minutes in management of patient. Subjective 88 yo male reports feeling better. He states he has not had a bowel movement as of yet. Patient reports his urine is more clear and irrigation has been stopped. is at bedside and is updated. Review of Systems Review of Systems: All systems reviewed & are unremarkable except as noted in HPI & below Physical Exam Physical Exam: The patient appeared well nourished and normally developed. Vital signs as documented. Head exam is unremarkable. normocephalic, atraumatic Neck is without jugular venous distension, thyromegaly, or lymphademopathy Lungs are CLEAR Otic exam is regular it appears paced on the monitor Abdominal exam reveals hypoactive bowel sounds, no masses, no organomegaly patient has suprapubic tenderness exquisitely to palpation. Extremities are nonedematous and both pedal pulses are present Neurologic exam is A&Ox3, no focal deficits, strength is equal bilateral Psychologically seems neither anxious or depressed Skin is warm Dry without bruises or lesions Results & Data Vital Signs (Past 12 Hours) Vital Signs Temp Pulse Resp BP Pulse Ox 06/11/18 21:05 75 120/80 06/11/18 15:33 36.5 C 72 18 93/62 L 99
[2018-06-12 07:43] LABS: Hematocrit (blood only) 31.9 % (42-52); Hemoglobin 10.7 g/dL (14.0-18.0); Mean Corpuscular Hgb Conc 33.5 g/dL (32-36); Mean Corpuscular Volume 87.2 fL (80-100); Platelet Count 136 K/uL (130-400); RDW Coefficient of Variation 15.7 % (11.5-14.5); RDW Standard Deviation 50.2 fL (36.4-46.3); Red Blood Count 3.66 M/uL (4.7-6.1); White Blood Count 6.86 K/uL (4.8-10.8)
[2018-06-12 08:11] LABS: BUN Creatinine Ratio 16.2 (10-20); Calcium 8.4 mg/dl (8.5-10.1); Creatinine Clr Calc Pharmacy 37.7 ml/min; Est GFR (African American) 54.5; Est GFR (Non-African American) 47.1; Potassium 4.4 mmol/L (3.5-5.1)
[2018-06-12] MEDS: PANTOprazole 40 MG TAB PO SCH (08:56)
[2018-06-12] MEDS: PSYLLIUM 58.6% POWDER PACKET PO SCH (08:56)
[2018-06-12] MEDS: CIPROFLOXACIN 500 MG TAB PO SCH (08:56)
[2018-06-12] MEDS: FUROSEMIDE 20 MG TAB PO SCH (08:57)
[2018-06-12] MEDS: TIOTROPIUM BROMIDE 5 PUFF/90 MCG INH INH SCH (09:26)
[2018-06-12] MEDS ORDERED: LACTULOSE SYRUP 30 GM/45 ML UDP PO STA (11:22)
--- NOTE | 2018-06-20 07:22 | Discharge Summary ---
Date of Service June 12, 2018 Admission HPI Per Admitting Provider Patient presents with a 24-hour history of so not been able to urinate with the bloody urination. The patient had a green light laser procedure at the urologist office approximately 3 weeks ago. Patient to be doing well until about 1 day prior when he started developing urgency and painful spasms in his lower abdomen. He then became unable to produce any urine. In the emergency department he had gross hematuria attempted a catheter was x2. Currently they did remove some urine however now the only able to instill fluid in and not able to remove any fluid. Urology consultation has been requested stat by the em ergency room physician and the urologist recommended medical management to admit the patient given his comorbid history of chronic diastolic heart failure atrial fibrillation chronic anticoagulation and previous empyema. Patient is pleasant resting comfortably there is very dark bloody urine in his Hurtado catheter bag at the bedside. His is present also at the bedside Principal Diagnosis Hematuria Discharge Exam The patient appeared well nourished and normally developed. Vital signs as documented. Head exam is unremarkable. normocephalic, atraumatic Neck is without jugular venous distension, thyromegaly, or lymphademopathy Lungs are CLEAR Otic exam is regular it appears paced on the monitor Abdominal exam reveals hypoactive bowel sounds, no masses, no organomegaly patient has suprapubic tenderness exquisitely to palpation. Extremities are nonedematous and both pedal pulses are present Neurologic exam is A&Ox3, no focal deficits, strength is equal bilateral Psychologically seems neither anxious or depressed Skin is warm Dry without bruises or lesions Discharge Data Allergies Allergy/AdvReac Type Severity Reaction Status Date / Time pregabalin Allergy Severe shortness Verified 06/13/18 00:08 of breath allopurinol Allergy Unknown UNKNOWN Verified 06/13/18 00:08 REACTION ropinirole Allergy Unknown UNKNOWN Verified 06/13/18 00:08 REACTION cyclobenzaprine AdvReac Intermediate HALLUCINATI Verified 06/13/18 00:08 ONS tramadol AdvReac Intermediate HALLUCINATI Verified 06/13/18 00:08 ONS codeine AdvReac Mild DROWSY Verified 06/13/18 00:08 diphenhydramine AdvReac Mild DROWSY Verified 06/13/18 00:08 Consultations 06/09/18 15:09 Consult Urology Stat 06/09/18 15:11 ED Decision to Admit Stat 06/09/18 17:49 Consult Case Management - Discharge Planning Routine Hospital Course (1) Gross hematuria: Patient with gross hematuria and urinary retention 3 weeks or so after a greenlight BPH treatment. The patient has a Hurtado catheter placed with gross hematuria and unable to remove any urine by gravity or by suction. Pending urology consultation. No imaging is been done of the area yet. I discussed imaging with the urgency room physician then such a bedside ultrasound or fast ultrasound. The emerge from physician felt it might be difficult to interpret given that gross blood in the bladder. Patient is only mildly uncomfortable BUN/creatinine 21.26 on presentation like to lites and bicarbonate are stable Urine is grossly bloody prophylactically ciprofloxacin is given. culture will be obtained Patient typically is on a combination tamsulosin regimen, Clamped irrigation. This appears to be improving as no blood in urine Will discharge today on bactrim. (2) Atrial fibrillation, persistent: Patient with a history of anticoagulation use for atrial fibrillation. He is in a paced rhythm currently with rate control Patient typically takes Xarelto in the evening this will be held currently (3) HTN (hypertension): Patient's blood pressure slightly elevated he is in some distress we will continue him on his losartan and daily furosemide (4) Chronic diastolic heart failure: Patient's chronic diastolic heart failure is currently stable use IV fluid overnight continuing his Lasix therapy (5) COPD (chronic obstructive pulmonary disease): Patient is maintained on albuterol as needed and Spiriva (6) DVT prophylaxis: Chemoprophylaxis is contraindicated we will employ SCDs and teds Total Time Total Time Spent Total Time Spent (In Minutes): 31 Total Time Includes: Examination of the Patient, Discharge Planning and Medication Reconciliation Discharge Plan Discharge Items Patient Disposition: Home - Self-Care Reason For Visit: GROSS HEMATURIA Discharge Diagnosis: Gross hematuria Discharge Goals: Decrease discomfort Activity: Resume your previous activity Non-emergency contact: Primary Care Provider Call non-emergency contact if: you have any medication questions Follow-up/Referrals: Jonathan Mae MD [Primary Care Provider] - Diet: Heart Healthy Addtl Provider Instructions: You will followup with Urology this week. Hold cipro until complete treatment with bactrim. Will defer to Urology if needed to restart cipro. Prescriptions: Continued ascorbic acid (vitamin C) 500 mg Tablet 500 mg PO QAM RF: 0 cetirizine [Zyrtec] 10 mg Tablet 10 mg PO DAILY PRN (Reason: Allergy Symptoms) RF: 0 diphenhydramine-acetaminophen [Tylenol PM Extra Strength] 25-500 mg Tablet 1 - 2 tab PO HS PRN (Reason: Sleep) RF: 0 oxybutynin chloride 5 mg tablet 5 mg PO DAILY RF: 0 clonazepam [Klonopin] 0.5 mg tablet 1.5 mg PO HS RF: 0 dutasteride-tamsulosin [Missy] 0.5-0.4 mg capsule, ER multiphase 24 hr 1 tab PO HS RF: 0 glucosamine-chondroitin 250-200 mg Tablet 1 tab PO BID RF: 0 losartan [Cozaar] 25 mg tablet 25 mg PO HS RF: 0 omeprazole 20 mg capsule,delayed release(DR/EC) 20 mg PO BID RF: 0 lovastatin 20 mg tablet 20 mg PO HS RF: 0 albuterol sulfate [Ventolin HFA] 90 mcg/actuation Hfa Aerosol Inhaler 2 puff INHALATION Q6H PRN (Reason: Shortness Of Breath Or Wheezing) RF: 0 ipratropium bromide 0.03 % spray,non-aerosol 2 spray Intranasal TID PRN (Reason: Nasal Congestion) RF: 0 psyllium husk [Metamucil] 0.52 gram Capsule 0.52 g PO BID RF: 0 Spiriva Respimat 2.5 mcg/actuation mist 2 puff Inhalation QAM RF: 0 Perioselect Gel 1 applic Topical UD RF: 0 ferrous sulfate [iron] 325 mg (65 mg iron) tablet 325 mg PO 3XWK RF: 0 potassium chloride [Klor-Con 10] 10 mEq tablet extended release 10 meq PO 5XWK RF: 0 triamcinolone acetonide 0.025 % cream 1 applic topical DAILY PRN (Reason: Rash) RF: 0 furosemide 20 mg tablet 20 mg PO 5XWK RF: 0 Discontinued aspirin [Aspir-Low] 81 mg Tablet,Delayed Release (Dr/Ec) 81 mg PO QAM RF: 0 ranitidine HCl [Zantac 75] 75 mg Tablet 75 mg PO HS PRN (Reason: Heartburn) RF: 0 benzonatate [Tessalon Perles] 100 mg capsule 100 mg PO TID PRN (Reason: cough) Qty: 30 RF: 0 Xarelto 15 mg tablet 15 mg PO HS RF: 0 ciprofloxacin HCl [Cipro] 250 mg tablet 250 mg PO BID Qty: 14 RF: 0 Stand-Alone Forms: [facility]/Other Patient Handouts: Hematuria Discharge Orders: Discharge Order (Routine); Ordered 06/12/18 Ordered By: Brant Nixon Admission Data Admit Date/Time: 06/09/18 15:24 Attending Provider: Brant Nixon Admit Provider: Foster Izquierdo Primary Care Provider: Jonathan Mae Other Providers: Horacio Smith Service: Surgical Services Other Interventions: Discharge Summary Assessment (RN) Last Done: 06/12/18 15:59 DC Date/Time DO NOT enter until pt leaves facility: 06/12/18 16:30
== END 2018-06-12 16:30 | disposition home or self-care (01) | DRG 699 ==
LOC: ED 12:51 → SUATTDRO 15:24 → 3N 15:24
DX: J44.9 Chronic obstructive pulmonary disease, unspecified; R31.0 Gross hematuria; Z79.01 Long term (current) use of anticoagulants; I11.0 Hypertensive heart disease with heart failure; I48.2 Chronic atrial fibrillation; I50.32 Chronic diastolic (congestive) heart failure; N99.89 Other postprocedural complications and disorders of genitourinary system; Z90.79 Acquired absence of other genital organ(s); D68.32 Hemorrhagic disorder due to extrinsic circulating anticoagulants; R33.8 Other retention of urine; Z79.82 Long term (current) use of aspirin; Z79.899 Other long term (current) drug therapy

== ENCOUNTER 2018-06-12 20:49 | Observation (INO) ==
[2018-06-12 23:54] LABS: Basophils # (auto) 0.03 K/uL (0-0.2); Basophils % (auto) 0.3 %; Eosinophils % (auto) 2.9 %; Hematocrit (blood only) 32.3 % (42-52); Hemoglobin 10.9 g/dL (14.0-18.0); Immature Granulocytes # (auto) 0.08 K/uL (0.00-0.02); Immature Granulocytes % (auto) 0.8 %; Lymphocytes # (auto) 0.87 K/uL (1.2-3.4); Lymphocytes % (auto) 8.3 %; Mean Corpuscular Hgb Conc 33.7 g/dL (32-36); Mean Corpuscular Volume 86.6 fL (80-100); Mean Platelet Volume 9.5 fL (7.4-10.4); Monocytes # (auto) 1.04 K/uL (0.11-0.59); Monocytes % (auto) 9.9 %; Neutrophils # (auto) 8.14 K/uL (1.4-6.5); Neutrophils % (auto) 77.8 %; Platelet Count 156 K/uL (130-400); RDW Coefficient of Variation 15.5 % (11.5-14.5); RDW Standard Deviation 49.1 fL (36.4-46.3); Red Blood Count 3.73 M/uL (4.7-6.1); White Blood Count 10.46 K/uL (4.8-10.8)
[2018-06-13 00:18] LABS: BUN Creatinine Ratio 20.1 (10-20); Calcium 8.3 mg/dl (8.5-10.1); Creatinine Clr Calc Pharmacy 42.4 ml/min; Est GFR (Non-African American) 54.4; Potassium 4.2 mmol/L (3.5-5.1)
[2018-06-13] MEDS ORDERED: DOCUSATE SODIUM 100 MG CAP PO PRN (01:36)
[2018-06-13] MEDS ORDERED: ACETAMINOPHEN 325 MG TAB PO PRN (01:36)
--- NOTE | 2018-06-13 02:03 | History & Physical Report ---
Date of Service June 13, 2018 Assessment & Plan (1) Urinary retention: Patient with Hurtado in place. Reports hematuria with clots passed earlier today. Hurtado with 350mL out after irrigation. Patient presently doing well. Renal function near baseline. -Observation to medical floor -Maintain Hurtado, irrigation q 4 hours PRN -Urology consultation, appreciate assistance with this case -Continue Bactrim to complete 5 day course -Continue Ditropan Present on Admission?: Yes (2) Gross hematuria: Patient s/p Greenlight laser prostatectomy, previously on Xarelto for history of AF which is being held in setting of hematuria. H/H stable at 10.9/32.3, respectively. No evidence of symptomatic anemia. No gross hematuria at present. -Treatment as above, maintain Hurtado, irrigation PRN, Urology consultation. -Continue to hold Xarelto -Repeat CBC in AM, transfuse for active bleed, symptomatic anemia or Hg <8 -Will keep patient NPO for now for possible intervention in AM -Continue PO iron Present on Admission?: Yes (3) COPD (chronic obstructive pulmonary disease): Stable. No SOB, cough or wheeze -Continue Spiriva -Continue to monitor (4) Chronic diastolic heart failure: Patient appears euvolemic -Continue Losartan, Lasix, Potassium -Continue to monitor (5) Atrial fibrillation: Rate controlled, paced, regular on exam. Presently not being anticoagulated secondary to gross hematuria -Continue to monitor -Hold Xarelto in setting of acute bleed Present on Admission?: Yes (6) GERD (gastroesophageal reflux disease): Chronic. Stable -Continue Protonix BID Present on Admission?: Yes (7) CAD (coronary artery disease): Chronic. No CP, no evidence of acute ischemia -Continue Statin, Losartan Present on Admission?: Yes (8) Asthma: Stable. No SOB -Continue Spiriva (9) HTN (hypertension): Blood pressure stable -Continue Losartan and Lasix -Continue to montior F/E/N - Heplock, monitor electrolytes and replete as needed, continue PO K, NPO for now, Colace PRN Ppx - SCDs Code - Full Dispo - Obs to medical floor History of Present Illness Chief Complaint: Urinary retention Primary Care Provider: Jonathan Mae MD Mr. Cummings is a pleasant 88yo C male with multiple medical comorbidities s/p Greenlight laser prostatectomy performed by Dr. Rooney on 05/21/18. Patient is on Xarelto for history of AF. Patient was seen in the ER on 05/30 and 06/09 with urinary retention. He was admitted to [facility] on 06/09/18 with gross hematuria and urinary retention. Patient had a [address] Hurtado placed by Urology and was placed on continuous bladder irrigation. Symptoms improved and he was voiding clear, yellow urine. His CBI was clamped on 06/11/18 and he was discharged home with Hurtado in place and instructions to followup with Dr. Rooney. Today he was passing blood and clots from his catheter then output stopped. He had some suprapubic discomfort which prompted his visit to the ER. Hurtado was flushed on arrival with 350 mL of clear urine which improved his suprapubic discomfort. He denies fevers, chills, flank pain. Denies CP/SOB/palpitations/dizziness/weakness/fatigue. No additional complaints at this time. ER Course: Hurtado Flushed Allergies Allergy/AdvReac Type Severity Reaction Status Date / Time pregabalin Allergy Severe shortness Verified 06/13/18 00:08 of breath allopurinol Allergy Unknown UNKNOWN Verified 06/13/18 00:08 REACTION ropinirole Allergy Unknown UNKNOWN Verified 06/13/18 00:08 REACTION cyclobenzaprine AdvReac Intermediate HALLUCINATI Verified 06/13/18 00:08 ONS tramadol AdvReac Intermediate HALLUCINATI Verified 06/13/18 00:08 ONS codeine AdvReac Mild DROWSY Verified 06/13/18 00:08 diphenhydramine AdvReac Mild DROWSY Verified 06/13/18 00:08 Home Medications Home Medications Medication Instructions Recorded Confirmed Type Perioselect Gel 1 applic TOPICAL UD 11/09/17 06/13/18 History Spiriva Respimat 2 puff INHALATION QAM 11/09/17 06/13/18 History albuterol sulfate [Ventolin HFA] 2 puff INHALATION Q6H PRN 11/09/17 06/13/18 History clonazepam [Klonopin] 1.5 mg PO HS 11/09/17 06/13/18 History dutasteride-tamsulosin [Missy] 1 tab PO HS 11/09/17 06/13/18 History glucosamine-chondroitin 1 tab PO BID 11/09/17 06/13/18 History ipratropium bromide 2 spray INTRANASAL TID PRN 11/09/17 06/13/18 History losartan [Cozaar] 25 mg PO HS 11/09/17 06/13/18 History lovastatin 20 mg PO HS 11/09/17 06/13/18 History omeprazole 20 mg PO BID 11/09/17 06/13/18 History psyllium husk [Metamucil] 0.52 g PO BID 11/09/17 06/13/18 History ferrous sulfate [iron] 325 mg PO 3XWK 04/24/18 06/13/18 History ascorbic acid (vitamin C) 500 mg PO QAM 05/30/18 06/13/18 History cetirizine [Zyrtec] 10 mg PO DAILY PRN 05/30/18 06/13/18 History diphenhydramine-acetaminophen 1 - 2 tab PO HS PRN 05/30/18 06/13/18 History [Tylenol PM Extra Strength] furosemide 20 mg PO 5XWK 05/30/18 06/13/18 History potassium chloride [Klor-Con 10] 10 meq PO 5XWK 05/30/18 06/13/18 History triamcinolone acetonide 1 applic TOPICAL DAILY PRN 05/30/18 06/13/18 History oxybutynin chloride 5 mg PO DAILY 06/09/18 06/13/18 History sulfamethoxazole-trimethoprim 1 tab PO BID 5 Days #10 tab 06/12/18 06/13/18 Rx [Bactrim DS] Past Med/Surg History Social History Preferred Language: Nepali Communication Ability: Effective Bacteriologist Pharmaceutical Required: No Beliefs That Will Affect Care: None marital status: Current Living Situation: Spouse Other Information That Helps Us Care for You: No Feels Safe at Home: Yes Safety Concerns: Feels Safe At This Time Smoking Status: Never smoker Second Hand Exposure: No Hx Alcohol Use: No Hx Substance Use: No Review of Systems Review of Systems: All systems reviewed & are unremarkable except as noted in HPI & below Physical Exam Physical Exam: General: patient resting comfortably, NAD, non-toxic in appearance, AA&O x 4 Skin: warm, dry, intact, no rashes or lesions HEENT: NC/AT, PERRL, EOMI, anicteric sclera, conjunctiva without injection, external ear normal to inspection and nontender, nares patent, moist mucus membranes, dentition intact, no oropharyngeal lesions, neck supple, trachea midline, no LAD, no thyromegaly, no JVD Heart: +S1/S2, regular, no m/r/g Lungs: equal air entry bilaterally, no rales/rhonchi/wheezes Abd: +BS, soft, NT/ND, no masses/organomegaly/ascites, Hurtado in place with 350mL of yellow urine in the bag Ext: warm, 2+ pulses in UE/LE bilaterally, no clubbing/cyanosis or edema Neuro: nonfocal, patient AA&O x 4, speech intact, no facial droop, moving all extremities on command with equal strength 5/5 Results & Data Vital Signs (Past 12 Hours) Vital Signs Temp Pulse Pulse Resp BP BP BP 06/13/18 01:32 37.0 C 85 16 128/75 06/13/18 01:12 74 18 127/87 06/12/18 23:09 74 18 111/70 06/12/18 20:50 36.3 C L 90 20 114/74 Pulse Ox 06/13/18 01:32 96 06/13/18 01:12 97 06/12/18 23:09 98 06/12/18 20:50 98 Laboratory Results Lab Results 06/12/18 06/12/18 Range/Units 23:45 23:45 WBC 10.46 (4.8-10.8) K/uL RBC 3.73 L (4.7-6.1) M/uL Hgb 10.9 L (14.0-18.0) g/dL Hct 32.3 L (42-52) % MCV 86.6 (80-100) fL MCH 29.2 (25-34) pg MCHC 33.7 (32-36) g/dL RDW Std Deviation 49.1 H (36.4-46.3) fL RDW Coeff of Marcelino 15.5 H (11.5-14.5) % Plt Count 156 (130-400) K/uL MPV 9.5 (7.4-10.4) fL Immature Gran % (Auto) 0.8 % Neut % (Auto) 77.8 % Lymph % (Auto) 8.3 % [place] % (Auto) 9.9 % Eos % (Auto) 2.9 % Baso % (Auto) 0.3 % Immature Gran # (Auto) 0.08 H (0.00-0.02) K/uL Neut # (Auto) 8.14 H (1.4-6.5) K/uL Lymph # (Auto) 0.87 L (1.2-3.4) K/uL [place] # (Auto) 1.04 H (0.11-0.59) K/uL Eos # (Auto) 0.30 (0-0.5) K/uL Baso # (Auto) 0.03 (0-0.2) K/uL Sodium 137 (136-145) mmol/L Potassium 4.2 (3.5-5.1) mmol/L Chloride 105 (98-107) mmol/L Carbon Dioxide 28 (21-32) mmol/L Anion Gap 4.0 (3-11) BUN 24 H (7-18) mg/dl Creatinine 1.18 (0.6-1.4) mg/dl Est Cr Clr Drug Dosing 42.4 ml/min Est GFR ( Amer) 63.0 Est GFR (Non-Af Amer) 54.4 BUN/Creatinine Ratio 20.1 H (10-20) Glucose 120 H (70-99) mg/dl Calcium 8.3 L (8.5-10.1) mg/dl Code Status & VTE Plan Code Status FULL VTE Prophylaxis Plan VTE Prophylaxis will be ordered: Yes
[2018-06-13] MEDS ORDERED: ACETAMINOPHEN 500 MG TAB PO PRN (02:19)
--- NOTE | 2018-06-13 03:03 | Emergency Department Note ---
Entered by Catrina Rodríguez acting as a scribe for Lit Campbell MD ED Provider Note CHIEF COMPLAINT: Unable to void HISTORY OF PRESENT ILLNESS: The patient is a 88 year old male who presents to the Emergency Room with complaints of the inability to void since this afternoon. He states that he had a prostate surgery done 2 weeks ago by [facility] Urology. The patient states that he was admitted in the hospital for the past 3 days, because he could not void. He states that he was discharged earlier today, but he his catheter "blocked off" and he couldn't void. The patient complains of urinary urgency and lower abdominal pain. He denies any fever/chills, nausea/vomiting, CP, or back pain. The patient notes that he is currently on antibiotics. REVIEW OF SYSTEMS: See HPI for pertinent positives and negatives. A total of six systems were reviewed and were otherwise negative. PMHx/PSHx: Asthma, lymphoma, prostatectomy, hypertension, CHF, GERD, CAD SOCIAL HISTORY: Patient lives at home. PHYSICAL EXAM: GENERAL: Awake, alert, well-appearing, in no distress HENT: Normocephalic, atraumatic. Oropharynx unremarkable. EYES: PERRL. Normal conjunctiva. Sclera non-icteric. NECK: Inspection normal. Non-tender. Supple. No nuchal rigidity. FROM. No masses. RESPIRATORY: Clear to auscultation. No wheezes. No rales. Normal respiratory effort. CARDIAC: Normal rate. Normal rhythm. No murmurs. No rubs. Extremities warm and well perfused. Pulses equal. No JVD. GI: Soft, non-distended. No tenderness to palpation. No rebound or guarding. No masses. : Normal male anatomy. Hurtado catheter in place. Bladder scan showed 350 mL. MUSCULOSKELETAL: Atraumatic. Chest examination reveals no tenderness. The back is symmetrical on inspection without obvious abnormality. There is no CVA tenderness to palpation. No joint edema. LOWER EXTREMITIES: Calves are equal size bilaterally and non-tender. No edema. No discoloration. NEURO: Normal sensorium. No sensory or motor deficits noted. SKIN: No rash or jaundice noted. EMERGENCY DEPARTMENT COURSE: 2209: Past medical records reviewed. The patient was evaluated in room B12, and a complete history and physical examination were performed. 0: I reassessed the patient. 4: I spoke with Dr. Clemens, [facility] urology, about the patients case. He recommended that the patient be admitted. 2321: I reevaluated the patient. 2324: I spoke with Dr. Madina Gallardo, [facility] hospitalist, about the patient's case. She will further evaluate the patient. MEDICAL DECISION MAKING: Triage Nursing notes reviewed. The patient's presentation and history were concerning for a malfunctioning Hurtado catheter. Etiologies such as catheter malfunction, obstruction, dehydration, infection, urinary retention, ARF, as well as others were entertained. The patient was evaluated. Hurtado catheter was in place. The patient had a bladder scan performed and there was over 350 mL of urine present. The catheter was irrigated. This was done successfully by nursing. The patient had resolution of his urinary obstruction. I did discuss the case with [facility] urology. Given the patient's course Dr. Clemens felt it would not be unreasonable to watch the patient overnight due to a high likelihood of recurrent obstruction. I discussed this with the patient and and they were in agreement. A consultation was placed with the hospitalist service. The patient was evaluated in the IMPRESSION: Hurtado catheter malfunction, urinary retention PLAN: Admitted The scribe's documentation has been prepared under my direction and personally reviewed by me in its entirety. I confirm that the note above accurately reflects all work, treatment, procedures, and medical decision making performed by me. Impression & Plan Malfunction of Hurtado catheter, Urinary retention Past Med/Surg History Social History Preferred Language: [place] Communication Ability: Effective Closet Builder Required: No Beliefs That Will Affect Care: None marital status: Current Living Situation: Spouse Other Information That Helps Us Care for You: No Feels Safe at Home: Yes Safety Concerns: Feels Safe At This Time Smoking Status: Never smoker Second Hand Exposure: No Hx Alcohol Use: No Hx Substance Use: No Results & Data Vital Signs Vital Signs - 24 hr 06/12/18 20:50 06/12/18 23:09 06/13/18 01:12 Temperature 36.3 C L Temperature Source Oral Sepsis Recent Fever Within 48 Hours No Sepsis Action Taken by Nursing No Action Required Pulse Rate 90 Pulse Rate [Finger] 74 74 Respiratory Rate 20 18 18 Respiratory Effort / Characteristics Non-Labored Spontaneous Respiratory Depth Normal Blood Pressure 114/74 Blood Pressure [Left Arm] 111/70 127/87 Blood Pressure [Right Arm] Blood Pressure Mean 87 Blood Pressure Mean [Left Arm] 83 100 Blood Pressure Mean [Right Arm] Blood Pressure Position [Right Arm] Pulse Oximetry 98 98 97 Oxygen Delivery Method Room Air Room Air Room Air 06/13/18 01:32 Temperature 37.0 C Temperature Source Oral Sepsis Recent Fever Within 48 Hours Sepsis Action Taken by Nursing Pulse Rate Pulse Rate [Finger] 85 Respiratory Rate 16 Respiratory Effort / Characteristics Respiratory Depth Blood Pressure Blood Pressure [Left Arm] Blood Pressure [Right Arm] 128/75 Blood Pressure Mean Blood Pressure Mean [Left Arm] Blood Pressure Mean [Right Arm] 92 Blood Pressure Position [Right Arm] Sitting Pulse Oximetry 96 Oxygen Delivery Method Room Air Home Medications Current Medication List: was personally reviewed by me Laboratory Data Attestation: I reviewed the patient's lab results. Result diagrams: 06/12/18 23:45 06/12/18 23:45 Lab Results 06/12/18 06/12/18 Range/Units 23:45 23:45 WBC 10.46 (4.8-10.8) K/uL RBC 3.73 L (4.7-6.1) M/uL Hgb 10.9 L (14.0-18.0) g/dL Hct 32.3 L (42-52) % MCV 86.6 (80-100) fL MCH 29.2 (25-34) pg MCHC 33.7 (32-36) g/dL RDW Std Deviation 49.1 H (36.4-46.3) fL RDW Coeff of Marcelino 15.5 H (11.5-14.5) % Plt Count 156 (130-400) K/uL MPV 9.5 (7.4-10.4) fL Immature Gran % (Auto) 0.8 % Neut % (Auto) 77.8 % Lymph % (Auto) 8.3 % [place] % (Auto) 9.9 % Eos % (Auto) 2.9 % Baso % (Auto) 0.3 % Immature Gran # (Auto) 0.08 H (0.00-0.02) K/uL Neut # (Auto) 8.14 H (1.4-6.5) K/uL Lymph # (Auto) 0.87 L (1.2-3.4) K/uL [place] # (Auto) 1.04 H (0.11-0.59) K/uL Eos # (Auto) 0.30 (0-0.5) K/uL Baso # (Auto) 0.03 (0-0.2) K/uL Sodium 137 (136-145) mmol/L Potassium 4.2 (3.5-5.1) mmol/L Chloride 105 (98-107) mmol/L Carbon Dioxide 28 (21-32) mmol/L Anion Gap 4.0 (3-11) BUN 24 H (7-18) mg/dl Creatinine 1.18 (0.6-1.4) mg/dl Est Cr Clr Drug Dosing 42.4 ml/min Est GFR ( Amer) 63.0 Est GFR (Non-Af Amer) 54.4 BUN/Creatinine Ratio 20.1 H (10-20) Glucose 120 H (70-99) mg/dl Calcium 8.3 L (8.5-10.1) mg/dl Administered Medications Discontinued Medications Diphenhydramine HCl (Benadryl Capsule) 25 mg PO NOW ONE Stop: 06/13/18 01:52 Last Admin: 06/13/18 01:57 Dose: 25 mg Documented by: [id number] Blood Pressure Blood Pressure Findings: Normal blood pressure Blood Pressure Disposition: did not require urgent referral Discharge Plan Visit Data *Final* Discharge Date/Time: 06/13/18 01:24 Chief Complaint: Unable to Void Stated Complaint: CAN'T URINATE ED Provider: Lit Campbell Discharge Problem: Malfunction of Hurtado catheter, Urinary retention Patient Disposition: Admitted As Inpatient Discharge Instructions Interventions: ED Discharge Assessment Last Done: 06/13/18 01:24 Discharge Problem: Malfunction of Hurtado catheter Qualifiers: Encounter type: subsequent encounter Qualified Code(s): T83.011D - Breakdown (mechanical) of indwelling urethral catheter, subsequent encounter The scribe's documentation has been prepared under my direction and personally reviewed by me in its entirety. I confirm that the note above accurately reflects all work, treatment, procedures, and medical decision making performed by me.
[2018-06-13] MEDS ORDERED: TIOTROPIUM BROMIDE 5 PUFF/90 MCG INH INH SCH (09:00)
[2018-06-13] MEDS ORDERED: SULFAMETHOXAZOLE/TRIMETHOPRIM DS 800/160MG TAB PO SCH (09:00)
[2018-06-13] MEDS ORDERED: FUROSEMIDE 20 MG TAB PO SCH (09:00)
[2018-06-13] MEDS ORDERED: POTASSIUM CHLORIDE 10 MEQ TABCR PO SCH (09:00)
[2018-06-13] MEDS ORDERED: PANTOprazole 40 MG TAB PO SCH (09:00)
[2018-06-13] MEDS ORDERED: OXYBUTYNIN CHLORIDE 5 MG TAB PO PRN (09:00)
[2018-06-13] MEDS ORDERED: clonazePAM 0.5 MG TAB PO ONE (09:00)
--- NOTE | 2018-06-13 12:24 | Urology Consultation ---
Date of Consultation June 13, 2018 Assessment & Plan (1) Urinary retention: A/P 88-year-old male with recurrent gross hematuria and retention 3 weeks status post greenlight TURP. Urine is currently clear. Chart suggest patient was being admitted for observation and to ensure a lack of malfunction of the Stephenson catheter on re- presentation to the ER shortly after discharge. This seems to be the case. I would tend to suspect that his anticoagulation is the primary risk factor for his recurrent issues with hematuria and clot retention. We will leave him off of this until he is seen in the office in less than a week as planned. We will discuss the possibility of trial of void at that time versus continued catheterization. Patient vocalizes good understanding of the treatment plan. OR intervention today should not be necessary with excellent appearance of urine. Will provide a diet and the patient should be stable for discharge home later today. (2) Gross hematuria: History of Present Illness Attending Physician: Florinda Kendall MD History of Present Illness 88-year-old male, well-known to our service, approximately 3 weeks out from a greenlight TURP on his third admission for hematuria and Stephenson malfunction. He is currently resting in bed. His notes up until present are reviewed. He has been off his Xarelto for 3 days time. It seems that this is been restarted on several occasions in the past as well. Stephenson catheter is currently draining freely with no issues with clot retention or obstruction since his current admission. Patient is comfortable with no lower abdominal discomfort. He has been placed n.p.o. for possible intervention. Allergies Allergy/AdvReac Type Severity Reaction Status Date / Time pregabalin Allergy Severe shortness Verified 06/13/18 00:08 of breath allopurinol Allergy Unknown UNKNOWN Verified 06/13/18 00:08 REACTION ropinirole Allergy Unknown UNKNOWN Verified 06/13/18 00:08 REACTION cyclobenzaprine AdvReac Intermediate HALLUCINATI Verified 06/13/18 00:08 ONS tramadol AdvReac Intermediate HALLUCINATI Verified 06/13/18 00:08 ONS codeine AdvReac Mild DROWSY Verified 06/13/18 00:08 diphenhydramine AdvReac Mild DROWSY Verified 06/13/18 00:08 Home Medications Home Medications Medication Instructions Recorded Confirmed Type Perioselect Gel 1 applic TOPICAL UD 11/09/17 06/13/18 History Spiriva Respimat 2 puff INHALATION QAM 10/05/18 05/09/19 History albuterol sulfate [Ventolin HFA] 2 puff INHALATION Q6H PRN 11/09/17 06/13/18 History clonazepam [Klonopin] 1.5 mg PO HS 11/09/17 06/13/18 History dutasteride-tamsulosin [Missy] 1 tab PO HS 11/09/17 06/13/18 History glucosamine-chondroitin 1 tab PO BID 11/09/17 06/13/18 History ipratropium bromide 2 spray INTRANASAL TID PRN 11/09/17 06/13/18 History losartan [Cozaar] 25 mg PO HS 11/09/17 06/13/18 History lovastatin 20 mg PO HS 11/09/17 06/13/18 History omeprazole 20 mg PO BID 11/09/17 06/13/18 History psyllium husk [Metamucil] 0.52 g PO BID 11/09/17 06/13/18 History ferrous sulfate [iron] 325 mg PO 3XWK 04/24/18 06/13/18 History ascorbic acid (vitamin C) 500 mg PO QAM 05/30/18 06/13/18 History cetirizine [Zyrtec] 10 mg PO DAILY PRN 05/30/18 06/13/18 History diphenhydramine-acetaminophen 1 - 2 tab PO HS PRN 05/30/18 06/13/18 History [Tylenol PM Extra Strength] furosemide 20 mg PO 5XWK 05/30/18 06/13/18 History potassium chloride [Klor-Con 10] 10 meq PO 5XWK 05/30/18 06/13/18 History triamcinolone acetonide 1 applic TOPICAL DAILY PRN 05/30/18 06/13/18 History oxybutynin chloride 5 mg PO DAILY 06/09/18 06/13/18 History sulfamethoxazole-trimethoprim 1 tab PO BID 5 Days #10 tab 06/12/18 06/13/18 Rx [Bactrim DS] Patient History Medical History Asthma (Chronic) Spiriva daily, was having hoarseness so d/c'd Symbicort per Dr Moran's instruction. 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 Nonocclusive CAD on rpt cath 2007 CHF (congestive heart failure) HX of. Euvolemic at PAT, EF normal on most recent echo. Chronic anticoagulation Depression GERD (gastroesophageal reflux disease) Hiatal hernia Hyperlipidemia Osteoarthritis Pacemaker Pacer checked 01/2018. VVIR. 8 year battery life. Pleural effusion due to CHF (congestive heart failure) Recurrent R sided, s/p Pleurx catheter with subsequent infection of the catheter requiring pleurectomy and decortication by dr montes 11/2017. Prediabetes Pulmonary hypertension 2/2 Sarcoidosis Surgical History S/P TURP (status post transurethral resection of prostate) H/O arthroscopy of shoulder H/O chest tube placement REMOVED BY DR. MONTES WITHIN PAST 6 MONTHS FOR PLEURAL EFFUSION H/O local excision of skin lesion History of carpal tunnel release PATIENT HAD CARDIOLOGY CLEARANCE PRIOR TO CTR 03/06/2017. History of lung surgery VATS/decortication 11/2017 Hx of cardiac cath 1999, stent placement. Hx of cataract surgery Previous back surgery Social History Preferred Language: Namibian Communication Ability: Effective It Applications Analyst Required: No Beliefs That Will Affect Care: None marital status: Current Living Situation: Spouse Other Information That Helps Us Care for You: No Feels Safe at Home: Yes Safety Concerns: Feels Safe At This Time Smoking Status: Never smoker Second Hand Exposure: No Hx Alcohol Use: No Hx Substance Use: No Review of Systems Constitutional: + fatigue; no fever and no chills Eyes: no blind spots Ear, Nose, Mouth, Throat: no ear trauma Respiratory: no cough and no hemoptysis Cardiovascular: no chest pain Gastrointestinal: no abdominal pain, no nausea and no vomiting Genitourinary: + difficulty urinating Musculoskeletal: no myalgia Integumentary: no acne and no boil Neurologic: no paralysis and no numbness Psychiatric: no hopelessness Endocrine: + fatigue Physical Exam Constitutional: well developed and + thin; no acute distress Eyes: eyes not dysmorphic Neck: trachea midline; no anterior neck swelling Respiratory: no respiratory distress and does not use accessory muscles Cardiovascular: Vessels: radial pulses present Gastrointestinal (Abdomen): Inspection/Auscultation: abdomen not distended Percussion/Palpation: abdomen soft; abdomen nontender Musculoskeletal: Head/Neck/Chest: normocephalic and neck supple Neurologic: awake; not obtunded Psychiatric: Orientation: oriented x 3 Genitourinary: stephenson in place, urine clear, draining freely, no clots, blush or debris, no hematuria Results & Data Vital Signs (Past 12 Hours) Vital Signs Temp Pulse Resp BP BP Pulse Ox 06/13/18 07:05 36.5 C 70 16 111/72 96 06/13/18 01:32 37.0 C 85 16 128/75 96 06/13/18 01:12 74 18 127/87 97 Laboratory Results Laboratory Results - last 48 hr 06/12/18 06/12/18 23:45 23:45 WBC 10.46 RBC 3.73 L Hgb 10.9 L Hct 32.3 L MCV 86.6 MCH 29.2 MCHC 33.7 RDW Std Deviation 49.1 H RDW Coeff of Marcelino 15.5 H Plt Count 156 MPV 9.5 Immature Gran % (Auto) 0.8 Neut % (Auto) 77.8 Lymph % (Auto) 8.3 [place] % (Auto) 9.9 Eos % (Auto) 2.9 Baso % (Auto) 0.3 Immature Gran # (Auto) 0.08 H Neut # (Auto) 8.14 H Lymph # (Auto) 0.87 L [place] # (Auto) 1.04 H Eos # (Auto) 0.30 Baso # (Auto) 0.03 Sodium 137 Potassium 4.2 Chloride 105 Carbon Dioxide 28 Anion Gap 4.0 BUN 24 H Creatinine 1.18 Est Cr Clr Drug Dosing 42.4 Est GFR ( Amer) 63.0 Est GFR (Non-Af Amer) 54.4 BUN/Creatinine Ratio 20.1 H Glucose 120 H Calcium 8.3 L
--- NOTE | 2018-06-13 14:29 | Discharge Summary ---
Date of Service June 13, 2018 Admission HPI Per Admitting Provider Mr. Cummings is a pleasant 88yo C male with multiple medical comorbidities s/p Greenlight laser prostatectomy performed by Dr. Rooney on 05/21/18. Patient is on Xarelto for history of AF. Patient was seen in the ER on 05/30 and 06/09 with urinary retention. He was admitted to [facility] on 06/09/18 with gross hematuria and urinary retention. Patient had a [address] Stephenson placed by Urology and was placed on continuous bladder irrigation. Symptoms improved and he was voiding clear, yellow urine. His CBI was clamped on 06/11/18 and he was discharged home with Stephenson in place and instructions to followup with Dr. Holden er. Today he was passing blood and clots from his catheter then output stopped. He had some suprapubic discomfort which prompted his visit to the ER. Stephenson was flushed on arrival with 350 mL of clear urine which improved his suprapubic discomfort. He denies fevers, chills, flank pain. Denies CP/SOB/palpitations/dizziness/weakness/fatigue. No additional complaints at this time. ER Course: Stephenson Flushed Principal Diagnosis urinary retention/hematuria Discharge Exam Constitutional WD/WN, vitals as above Eyes PERRL, conjunctivae normal, anicteric sclerae ENMT external ear and nose normal, oropharynx normal Respiratory normal respiratory effort, lungs clear to auscultation Cardiovascular RRR, no murmur, no edema Gastrointestinal (Abdomen) normal bowel sounds, soft, nontender, no hepatosplenomegaly Skin no rashes, warm and dry Psychiatric A+Ox3, euthymic affect Genitourinary stephenson in place draining yellow urine Discharge Data Allergies Allergy/AdvReac Type Severity Reaction Status Date / Time pregabalin Allergy Severe shortness Verified 06/13/18 00:08 of breath allopurinol Allergy Unknown UNKNOWN Verified 06/13/18 00:08 REACTION ropinirole Allergy Unknown UNKNOWN Verified 06/13/18 00:08 REACTION cyclobenzaprine AdvReac Intermediate HALLUCINATI Verified 06/13/18 00:08 ONS tramadol AdvReac Intermediate HALLUCINATI Verified 06/13/18 00:08 ONS codeine AdvReac Mild DROWSY Verified 06/13/18 00:08 diphenhydramine AdvReac Mild DROWSY Verified 06/13/18 00:08 Consultations 05/08/19 23:43 ED Decision to Admit Stat 06/13/18 01:36 Consult Urology Routine Hospital Course (1) Urinary retention: Mr. Cummings is a pleasant 88 y/o male with multiple medical comorbidities s/p Greenlight laser prostatectomy performed by Dr. Rooney on 05/21/18. Patient was seen in the ER on 05/30 and 06/09 with urinary retention. He was admitted to [facility] on 06/09/18 with gross hematuria and urinary retention. Patient had a [address] Stephenson placed by Urology and was placed on continuous bladder irrigation. Symptoms improved and he was voiding clear, yellow urine. Pt was discharged home with Stephenson in place and instructions to followup with Dr. Rooney. A couple of days later, pt noted he was passing blood and clots from his catheter then output stopped. He had some suprapubic discomfort which prompted his visit to the ER. In the ER, his Stephenson was flushed on arrival with 350 mL of clear urine which improved his suprapubic discomfort. The following is the medical course during his stay here: 1) Urinary retention -Pt's renal function was near baseline during stay here. We maintained his Stephenson and urine was clear throughout stay here. We continued Bactrim to complete 5 day course along with continuing Ditropan. Urology was consulted and suspected that pt's anticoagulation was the primary risk factor for his recurrent issues with hematuria and clot retention. Our plan is to leave him off of AC until he is seen in outpt urology office on 06/18. Urology will discuss the possibility of trial of void at that time versus continued catheterization. No OR intervention was necessary during stay given excellent appearance of urine. 2) Gross hematuria -Patient was s/p Greenlight laser prostatectomy, and previously was on Xarelto for history of AF which was held in setting of hematuria. H/H was stable at 10.9/32.3, respectively and there was no evidence of symptomatic anemia. Additionally, no gross hematuria was noted during stay here. We continued pt on PO iron here. 3) COPD/Asthma -This was stable here. Pt had no SOB, cough or wheeze. We continued home Spiriva here. 4) Chronic diastolic heart failure -Pt appeared euvolemic during stay here. We continued Losartan, Lasix, Potassium 5) Atrial fibrillation -Pt was rate controlled here, paced, regular on exam. As above, was not being anticoagulated secondary to gross hematuria. We are holding Xarelto until f/u with urology next week. 6) GERD -This is chronic for pt, and was stable here. We continued Protonix BID. 7) CAD -Pt had no CP or evidence of acute ischemia here. We continued Statin, Losartan. 8) HTN -Pt's blood pressure was stable here. We continued Losartan and Lasix here. At time of d/c, pt had no other acute concerns or complaints and was understanding of plan moving forward. Will f/u with PCP on 06/20. Total Time Total Time Spent Total Time Spent (In Minutes): 30 min Discharge Plan Discharge Items Patient Disposition: Home - Self-Care Reason For Visit: URINARY RETENTION Discharge Diagnosis: urinary retention Discharge Goals: Decrease discomfort and Improve function Activity: Per 'Additional Instructions' section Non-emergency contact: Primary Care Provider Call non-emergency contact if: you have any medication questions, your symptoms worsen and your pain is not controlled Follow-up/Referrals: Diego Rooney MD [Physician] - 06/18/18 10:40 am (Please, follow up at [facility] Urology Office with Dr. Diego Rooney on SundayJune 18 at 10:40 am. *The office is located at [address] [place] [address] in [place]. If you need to change this appointment, call the office at [phone].) Jonathan Mae MD [Primary Care Provider] - 06/20/18 1:00 pm (Please, follow up at Dr. Mae's office with his carpenter assistant, Neetu Ornelas PA-C, on June 20 at 1:00 pm. *If you need to change this appointment, call their office at [phone].) Diet: Regular Addtl Provider Instructions: You were admitted for urinary retention and blood in your urine. This was likely from your anticoagulation medication. Please follow the below instructions on discharge: -You will stop your Xarelto until you will be seen in the urology office on 06/18. -At your urology appointment, they will discuss the possibility of trial of void versus continued catheterization -If you notice the same symptoms that brought you in, then please re-visit the ER. Prescriptions: Continued ascorbic acid (vitamin C) 500 mg Tablet 500 mg PO QAM RF: 0 cetirizine [Zyrtec] 10 mg Tablet 10 mg PO DAILY PRN (Reason: Allergy Symptoms) RF: 0 diphenhydramine-acetaminophen [Tylenol PM Extra Strength] 25-500 mg Tablet 1 - 2 tab PO HS PRN (Reason: Sleep) RF: 0 oxybutynin chloride 5 mg tablet 5 mg PO DAILY RF: 0 sulfamethoxazole-trimethoprim [Bactrim DS] 800-160 mg tablet 1 tab PO BID 5 Days Qty: 10 RF: 0 clonazepam [Klonopin] 0.5 mg tablet 1.5 mg PO HS RF: 0 dutasteride-tamsulosin [Missy] 0.5-0.4 mg capsule, ER multiphase 24 hr 1 tab PO HS RF: 0 glucosamine-chondroitin 250-200 mg Tablet 1 tab PO BID RF: 0 losartan [Cozaar] 25 mg tablet 25 mg PO HS RF: 0 omeprazole 20 mg capsule,delayed release(DR/EC) 20 mg PO BID RF: 0 lovastatin 20 mg tablet 20 mg PO HS RF: 0 albuterol sulfate [Ventolin HFA] 90 mcg/actuation Hfa Aerosol Inhaler 2 puff INHALATION Q6H PRN (Reason: Shortness Of Breath Or Wheezing) RF: 0 ipratropium bromide 0.03 % spray,non-aerosol 2 spray Intranasal TID PRN (Reason: Nasal Congestion) RF: 0 psyllium husk [Metamucil] 0.52 gram Capsule 0.52 g PO BID RF: 0 Spiriva Respimat 2.5 mcg/actuation mist 2 puff Inhalation QAM RF: 0 Perioselect Gel 1 applic Topical UD RF: 0 ferrous sulfate [iron] 325 mg (65 mg iron) tablet 325 mg PO 3XWK RF: 0 potassium chloride [Klor-Con 10] 10 mEq tablet extended release 10 meq PO 5XWK RF: 0 triamcinolone acetonide 0.025 % cream 1 applic topical DAILY PRN (Reason: Rash) RF: 0 furosemide 20 mg tablet 20 mg PO 5XWK RF: 0 Stand-Alone Forms: [facility]/Other Patient Handouts: ED Retention Urinary Male Discharge Orders: Discharge Order (Routine); Ordered 05/09/19 Ordered By: Jorge Taylor Admission Data Admit Date/Time: 06/13/18 00:52 Attending Provider: Florinda Kendall Admit Provider: Mitsy Gallardo Primary Care Provider: Jonathan Mae Other Providers: Misty Gallardo ; Ned Clemens ; Horacio Smith ; Diego Rooney I. ; Patrick Mcintyre ; Wanda Morales ; Dimas Gregory II ; Suzie Esparza Service: Medical Other Interventions: Discharge Summary Assessment (RN) Last Done: 06/13/18 16:29 DC Date/Time DO NOT enter until pt leaves facility: 06/13/18 16:30 Supervising Physician Co-Signing Physician Notes Resident Physician Supervision Note: I independently interviewed and examined the patient and verified the alcala history and physical, reviewed labs and image studies, discussed the case with the resident Dr. Taylor and agree with the findings and care plan. Resident Activity Tracking Resident Involvement: Resident Care Provided Care Provided: Adult Hospital Medicine
[2018-06-13] MEDS ORDERED: clonazePAM 0.5 MG TAB PO SCH (21:00)
[2018-06-13] MEDS ORDERED: LOVASTATIN 20 MG TAB PO SCH (21:00)
[2018-06-13] MEDS ORDERED: LOSARTAN POTASSIUM 25 MG TAB PO SCH (21:00)
[2018-06-14] MEDS ORDERED: FERROUS SULFATE 325 MG TAB PO SCH (09:00)
== END 2018-06-13 16:30 | disposition home or self-care (01) ==
LOC: 3N 20:49 → ED 20:49 → SUATTDRO 06-13 00:52 → 3N 06-13 01:24